=== PATIENT | female | born 1980 | race Caucasian/White ===

== ENCOUNTER → 2020-01-17 14:55 | Outpatient (BNVA) | payer MEDICAID, SELFPAY | PROVIDERS: PCP Nurse Practitioner Family; Visit Provider Psychiatry & Neurology Neurology | DX: G56.03 Carpal tunnel syndrome, bilateral upper limbs (principal); G56.22 Lesion of ulnar nerve, left upper limb ==

== ENCOUNTER 2022-02-02 13:27 | Inpatient (IN) | payer MEDICAID, SELFPAY ==
[2022-02-02] VITALS (25 sets, daily range): BP systolic 93–155; BP diastolic 63–96; PULSE 68–88; RESP 13–22; TEMP 36.6–37.7; O2SAT 88–96; BMI 25.0
--- NOTE | 2022-02-02 13:47 | XRR_ITS ---
PROCEDURE INFORMATION: Exam: XR Chest Exam date and time: 02/02/2022 1:47 PM Age: 41 years old Clinical indication: Other: Weakness TECHNIQUE: Imaging protocol: XR of the chest. Views: 1 view. COMPARISON: No relevant prior studies available. FINDINGS: Lungs: Unremarkable. No consolidation. Pleural spaces: Unremarkable. No pleural effusion. No pneumothorax. Heart/Mediastinum: Unremarkable. No cardiomegaly. Diaphragm: Mild elevation of the right hemidiaphragm. Bones/joints: Unremarkable. XR/XR chest 1V portable [id number] IMPRESSION: No acute findings.
--- NOTE | 2022-02-02 13:47 | CTR_ITS ---
PROCEDURE INFORMATION: Exam: CT Head Without Contrast Exam date and time: 02/02/2022 1:47 PM Age: 41 years old Clinical indication: Weakness, extremity; Bilateral TECHNIQUE: Imaging protocol: Computed tomography of the head without contrast. Radiation optimization: All CT scans at this facility use at least one of these dose optimization techniques: automated exposure control; mA and/or kV adjustment per patient size (includes targeted exams where dose is matched to clinical indication); or iterative reconstruction. COMPARISON: No relevant prior studies available. RADIATION DOSE METRICS: Total DLP (mGy-cm): 891.2 FINDINGS: Brain: No hemorrhage. No edema. No significant white matter disease. No mass effect. Cerebral ventricles: No ventriculomegaly. Paranasal sinuses: Visualized sinuses are unremarkable. No fluid levels. Mastoid air cells: Visualized mastoid air cells are well aerated. Bones/joints: Unremarkable. No acute fracture. Soft tissues: Unremarkable. CT/CT head wo con* [id number] IMPRESSION: No acute intracranial abnormality.
--- NOTE | 2022-02-02 13:48 | ECG_ITS ---
[facility] Test Date: 2022-02-02 Pat Name: Jazmine Cancino Department: Room: [facility] Gender: Female Cover Operator: : 1980 Requested By: Jaylan Villagran Order Number: [id number] Leatha MD: Ebony Muñiz M.D. Measurements Intervals [place] Rate: P: AK: QRS: QRSD: T: QT: QTc: Interpretive Statements Sinus rhythm Normal axis WARNING: DATA QUALITY MAY AFFECT INTERPRETATION No previous ECG available for comparison Electronically Signed On 02-03-2022 16:12:02 LICENSING OFFICER by Ebony Muñiz M.D. [email or web address]
--- NOTE | 2022-02-02 13:56 | W.ED.WEAKNES ---
HPI - Weakness General: Chief complaint: Weakness Stated complaint: RODRIGUEZ ARM AND LEG WEAKNESS Time Seen by Provider: 02/02/22 13:39 Source: patient and EMS Mode of arrival: EMS Limitations: no limitations History of Present Illness: 41-year-old female states that over the last day to 2 days she has had extreme weakness she states that she is not able to walk she is not able to use her arms or legs. She states that she has not felt well she had some neck pain 2 days ago states that the severe weakness started overnight. She has no pain anywhere denies any fever denies any history of this in the past. Associated symptoms: Denies chest pain, chills, dysuria, easy bruising, fever(s), nausea or vomiting Review of Systems Const: Denies: fever(s), chills, body aches or change in appetite Eyes: Denies: blurry vision or eye discomfort ENMT: Denies: throat pain or dental pain Card: Denies: chest pain Resp: Denies: dyspnea GI: Denies: abdominal pain, nausea, vomiting or diarrhea : Denies: dysuria Musc: Denies: neck pain or back pain Skin/Breast: Denies: rash Neuro: Reports: weakness in extremities Psych: Denies: depression Teo/Lymph: Denies: easy bruising All/Imm: Denies: urticaria PFSH ED PFSH: Family History Denies family history of Cancer Social History Smoking and tobacco status: current every day smoker Physical Exam Const: COMMON NORMALS: patient oriented x3 HENMT: COMMON NORMALS: normocephalic and atraumatic HEAD & SCALP: normocephalic and atraumatic Eye: COMMON NORMALS: Equal, round and reactive pupils present and EOMs intact bilaterally PUPIL: Yes Equal, round and reactive pupils present Neck/C-Spine: COMMON NORMALS: full ROM and supple Chest: COMMONS NORMALS: normal inspection of the chest and normal palpation of entire chest wall Resp: COMMON NORMALS: normal respiratory effort, No retractions, No use of accessory muscles and clear to auscultation bilaterally AUSCULTATION: clear to auscultation bilaterally Cardio: COMMON NORMALS: regular rate, regular rhythm and No murmurs present (Cardio) RATE: regular rate RHYTHM: regular rhythm GI: COMMON NORMALS: Normal to inspection, nondistended, normoactive bowel sounds present, Soft to palpation, non-tender and no masses PALPATION: Yes Soft to palpation Extremity: COMMON NORMALS: normal to inspection and full ROM Neuro: COMMON NORMALS: patient oriented x3 SPEECH: speech normal GAIT: No Normal gait present SENSORY EXAM: Yes other (Pinprick and touch sensation intact to all 4 extremities) MOTOR EXAM: Other motor observations present (Extreme weakness to the bilateral lower extremities not able to move them a) DEEP TENDON REFLEXES: Right patellar reflex intensity grade: 0, Left patellar reflex intensity grade: 1+, Right ankle reflex intensity grade: 0 and Left ankle reflex intensity grade: 0 Psych: COMMON NORMALS: mental status grossly normal, Normal thought process present and cooperative THOUGHT PROCESS: Normal thought process present OTHER: Weakness in all 4 extremities Skin: COMMON NORMALS: no rashes or lesions noted and no wounds GENERAL SKIN EXAM: no rashes or lesions noted Course Vital Signs: Vital signs: Vital Signs Temperature 99.8 F H 02/02/22 15:00 Pulse Rate 85 02/02/22 16:00 Respiratory Rate 18 02/02/22 16:00 Blood Pressure 155/89 02/02/22 16:00 Pulse Oximetry 91 02/02/22 16:00 MDM - Weakness Medical Decision Making Patient presents with progressive weakness of her lower and upper extremities. Patient's head CT here is normal she has no low back pain she does have some neck pain I did speak to the neurologist I am concerned about Guillain-Galarza? especially with her decreased reflexes neurologist agrees as well we will get MRI of C-spine T-spine and brain at this time we will start her on IVIG I spoke to hospitalist will admit to the ICU neurology Dr. Juarez is also consulted at this time. Lab Data : 02/02/22 14:00 02/02/22 14:00 Radiology Impressions Chest X-Ray 02/02/22 13:47 IMPRESSION: No acute findings. Head CT 02/02/22 13:47 IMPRESSION: No acute intracranial abnormality. Laboratory Results WBC 16.9 10^3/uL (4.0-10.0) H 02/02/22 14:00 RBC 4.78 10^6/uL (4.1-5.3) 02/02/22 14:00 Hgb 13.3 g/dL (11.5-15.3) 02/02/22 14:00 Hct 40.8 % (37.0-47.0) 02/02/22 14:00 MCV 85.4 fl (81-99) 02/02/22 14:00 MCH 27.8 pg (28.0-34.0) L 02/02/22 14:00 MCHC 32.6 g/dL (30.0-36.0) 02/02/22 14:00 RDW 14.5 % (12.1-15.1) 02/02/22 14:00 Plt Count 309 10^3/cmm (130-400) 02/02/22 14:00 MPV 8.9 fL (7.4-10.4) 02/02/22 14:00 Neut % (Auto) 81.1 % 02/02/22 14:00 Lymph % (Auto) 9.6 % 02/02/22 14:00 Rankin % (Auto) 8.6 % 02/02/22 14:00 Eos % (Auto) 0.0 % 02/02/22 14:00 Baso % (Auto) 0.2 % 02/02/22 14:00 Neut # (Auto) 13.69 10^3/uL (1.8-7.7) H 02/02/22 14:00 Lymph # (Auto) 1.6 10^3/uL (0.8-4.8) 02/02/22 14:00 Rankin # (Auto) 1.5 10^3/uL (0.2-0.9) H 02/02/22 14:00 Eos # (Auto) 0.0 10^3/uL (0.0-0.8) 02/02/22 14:00 Baso # (Auto) 0.0 10^3/uL (0.0-0.1) 02/02/22 14:00 Nucleated RBC % (auto) 0 % 02/02/22 14:00 Nucleated RBCs # 0.0 /100WBC 02/02/22 14:00 Sodium 134 mmol/L (136-145) L 02/02/22 14:00 Potassium 4.3 mmol/L (3.5-5.1) 02/02/22 14:00 Chloride 93 mmol/L (98-107) L 02/02/22 14:00 Carbon Dioxide 28 mmol/L (22-29) 02/02/22 14:00 Anion Gap 17.3 (5-19) 02/02/22 14:00 BUN 8 mg/dL (6-20) 02/02/22 14:00 Creatinine 0.4 mg/dL (0.5-0.9) L 02/02/22 14:00 GFR Calculation 175.9 mL/min (90-130) H 02/02/22 14:00 Glucose 132 mg/dL (65-115) H 02/02/22 14:00 Calculated Osmolality 278 mOsm/kg (285-295) L 02/02/22 14:00 Calcium 8.9 mg/dL (8.5-10.5) 02/02/22 14:00 Total Bilirubin 0.5 mg/dL (0.15-1.2) 02/02/22 14:00 AST 12 U/L (0-32) 02/02/22 14:00 ALT 11 U/L (0-33) 02/02/22 14:00 Alkaline Phosphatase 107 IU/L (35-105) H 02/02/22 14:00 Total Protein 8.1 g/dL (6.6-8.7) 02/02/22 14:00 Albumin 4.0 g/dL (3.5-5.2) 02/02/22 14:00 Globulin 4.1 g/dL (1.3-4.6) 02/02/22 14:00 TSH 0.61 uIU/mL (0.27-4.20) 02/02/22 14:00 HCG, Qual Negative (Negative) 02/02/22 14:00 Urine Color Yellow (Yellow) 02/02/22 14:10 Urine Appearance Clear (CLEAR) 02/02/22 14:10 Urine pH 7 (5-7) 02/02/22 14:10 Ur Specific Crowder 1.010 (1.005-1.030) 02/02/22 14:10 Urine Protein Neg (Negative) 02/02/22 14:10 Urine Glucose (UA) Norm (Normal) 02/02/22 14:10 Urine Ketones Negative (Negative) 02/02/22 14:10 Urine Blood Neg (Negative) 02/02/22 14:10 Urine Nitrate Negative (Negative) 02/02/22 14:10 Urine Bilirubin Neg (Negative) 02/02/22 14:10 Urine Urobilinogen 1 mg/dL (Negative) H 02/02/22 14:10 Ur Leukocyte Esterase Negative (Negative) 02/02/22 14:10 Urine Opiates Screen Positive ng/mL (Negative) H 02/02/22 14:10 Ur Barbiturates Screen Negative ng/mL (Negative) 02/02/22 14:10 Ur Phencyclidine Scrn Negative ng/mL (Negative) 02/02/22 14:10 Ur Amphetamines Screen Negative ng/mL (Negative) 02/02/22 14:10 U Benzodiazepines Scrn Negative ng/mL (Negative) 02/02/22 14:10 Urine Cocaine Screen Negative ng/mL (Negative) 02/02/22 14:10 U Marijuana (THC) Screen Positive ng/mL (Negative) H 02/02/22 14:10 Ethyl Alcohol < 10 mg/dL (0-10) 02/02/22 14:00 EKG Data EKG 1: I personally reviewed and interpreted this EKG as follows: EKG interpretation date: 02/02/22 EKG interpretation time: 14:02 Interpretation: nsr hr [address] or t wave abnormalities qrs 92 qtc 437 Critical Care Time Critical Care Time: Critical Care Time: Yes Total Critical Care Time: 35 Attestation: The high probability of a clinically significant, sudden or life threatening deterioration of the patient's Neuro system(s) required my full and direct attention, intervention and personal management. The critical care time is as shown. This time is in addition to time spent performing any reported procedures but includes the following: [x] Data and vital sign review and interpretation [x] Patient assessment, examination and intervention [x] Documentation [x] Medication orders and management Discharge Plan Discharge Patient Disposition: Admitted As Inpatient Admit Provider: Parrish Sparrow Clinical Impression: Weakness of both arms, Weakness of both legs Condition: Stable Coding Level of Care Code ED Business Development Representative for Chg Fwd Exam Comprehensive
[2022-02-02 14:09] LABS: Basophils % 0.2 %; Hematocrit 40.8 % (37.0-47.0); Hemoglobin 13.3 g/dL (11.5-15.3); Lymphocytes # 1.6 10^3/uL (0.8-4.8); Lymphocytes % 9.6 %; Mean Corpuscular HGB Conc 32.6 g/dL (30.0-36.0); Mean Corpuscular Hemoglobin 27.8 pg (28.0-34.0); Mean Corpuscular Volume 85.4 fl (81-99); Mean Platelet Volume 8.9 fL (7.4-10.4); Monocytes # 1.5 10^3/uL (0.2-0.9); Monocytes % 8.6 %; Neutrophils # 13.69 10^3/uL (1.8-7.7); Neutrophils % 81.1 %; Nucleated Red Blood Cells % 0 %; Platelet Count 309 10^3/cmm (130-400); Red Blood Count 4.78 10^6/uL (4.1-5.3); Red Cell Distribution Width 14.5 % (12.1-15.1); White Blood Count 16.9 10^3/uL (4.0-10.0)
--- NOTE | 2022-02-02 14:23 | PC.NURSE ---
Unable to use bedpan, straight cath for urine obtained
[2022-02-02 14:27] LABS: Add Urine Microscopic? NO; Charge for UA Resulting for Rev
[2022-02-02 14:33] LABS: Bilirubin Urine Neg (Negative); Blood Urine Neg (Negative); Glucose Urine UA Norm (Normal); Ketones Urine Negative (Negative); Leukocyte Esterase Urine Negative (Negative); Nitrate Urine Negative (Negative); Protein Urine Neg (Negative); Urine Appearance Clear (CLEAR); Urine Color Yellow (Yellow); Urobilinogen Urine 1 mg/dL (Negative); pH Urine 7 (5-7)
[2022-02-02 14:36] LABS: HCG, Serum Qual Negative (Negative)
[2022-02-02 14:39] LABS: Amphetamines Screen Urine Negative (Negative); Barbiturates Screen Urine Negative (Negative); Benzodiazepines Screen Urine Negative (Negative); Cocaine Screen Urine Negative (Negative); Opiate Screen Urine Positive (Negative); PCP Screen Urine Negative (Negative); THC Screen Urine Positive (Negative)
[2022-02-02 14:39] LABS: Alanine Aminotransferase 11 U/L (0-33); Alkaline Phosphatase 107 IU/L (35-105); Anion Gap 17.3 (5-19); Aspartate Amino Transferase 12 U/L (0-32); Blood Urea Nitrogen 8 mg/dL (6-20); Calcium 8.9 mg/dL (8.5-10.5); Carbon Dioxide 28 mmol/L (22-29); Chloride 93 mmol/L (98-107); Globulin 4.1 g/dL (1.3-4.6); Glomerular Filtration Rate 175.9 mL/min (90-130); Glucose 132 mg/dL (65-115); Osmolality Calculated 278 mOsm/kg (285-295); Potassium 4.3 mmol/L (3.5-5.1); Sodium 134 mmol/L (136-145); Thyroid Stimulating Hormone 0.61 uIU/mL (0.27-4.20); Total Bilirubin 0.5 mg/dL (0.15-1.2); Total Protein 8.1 g/dL (6.6-8.7)
[2022-02-02 14:51] LABS: Alcohol Level < 10 mg/dL (0-10)
--- NOTE | 2022-02-02 15:27 | MRR_ITS ---
PROCEDURE INFORMATION: Exam: MR Thoracic Spine Without Contrast Exam date and time: 02/02/2022 3:27 PM Age: 41 years old Clinical indication: Pain in thoracic spine TECHNIQUE: Imaging protocol: Multiplanar magnetic resonance images of the thoracic spine without contrast. COMPARISON: MR cervical spin wo con* [id number] 02/02/2022 5:18 PM FINDINGS: Vertebrae: Vertebral body heights are intact. Normal marrow signal. No irregular osseous erosions. Suspected 8 mm vertebral hemangioma in the T6 vertebral body. Spinal cord: Cervical cord syrinx noted on concurrent MRI extends to the level of the T4 vertebral body. Minimal central cord fluid/syrinx also seen more caudally within the thoracolumbar cord. Discs/Spinal canal/Neural foramina: No significant disc disease. No significant spinal canal stenosis. Soft tissues: Unremarkable. MR/MR thoracic spin wo con* [id number] IMPRESSION: Cervical cord syrinx noted on concurrent MRI extends into the thoracic cord to the level of T4. Minimal central cord fluid/syrinx seen more caudally within the visualized thoracolumbar cord. No signs of discitis/osteomyelitis, severe spinal stenosis, or cord impingement in the thoracic spine.
--- NOTE | 2022-02-02 15:27 | MRR_ITS ---
PROCEDURE INFORMATION: Exam: MR Cervical Spine Without Contrast Exam date and time: 02/02/2022 3:27 PM Age: 41 years old Clinical indication: Neck pain TECHNIQUE: Imaging protocol: Multiplanar magnetic resonance images of the cervical spine without contrast. COMPARISON: MR head wo con* [id number] 02/02/2022 5:04 PM FINDINGS: Vertebrae: Vertebral body heights are intact. Normal marrow signal is preserved. No irregular osseous erosions. Spinal cord: There is a long segment of syrinx within the cervical cord proximal to the area of cord impingement at C5-C6 measuring 4.5 cm in length. The syrinx also extends caudal to the area of cord impression at least to the level of T2-T3 measuring 6.7 cm in length. Discs/Spinal canal/Neural foramina: Abnormal increased T2 signal within the C5-C6 disc. There is adjacent lobulated epidural thickening seen extending throughout the cervical spine. There is also severe narrowing of the spinal canal posterior to C5-C6 with impression on the cervical cord. Vasculature: Expected flow voids in the vertebral arteries. Soft tissues: Unremarkable MR/MR cervical spin wo con* [id number] IMPRESSION: 1. Findings suspicious for discitis at C5-C6 with localized extension/lobulated thickening of the anterior epidural space throughout the cervical spine suspicious for epidural abscess. 2. There is severe spinal stenosis and impingement the cervical cord at the level of C5-C6 with a long segment of syrinx proximal to the impingement as well as caudally extending to the level of T2-T3.
--- NOTE | 2022-02-02 15:37 | MRR_ITS ---
PROCEDURE INFORMATION: Exam: MR Head Without Contrast Exam date and time: 02/02/2022 3:37 PM Age: 41 years old Clinical indication: Weakness, extremity TECHNIQUE: Imaging protocol: MR of the head without contrast. COMPARISON: CT head wo con* [id number] 02/02/2022 2:22 PM FINDINGS: Brain: Normal. No acute infarct. No hemorrhage. No significant white matter disease. No edema. Cerebral ventricles: Normal. No ventriculomegaly. Bones/joints: Unremarkable. Paranasal sinuses: Normal as visualized. No acute sinusitis. Mastoid air cells: Normal as visualized. No mastoid effusion. Orbital cavity: Unremarkable. Soft tissues: Unremarkable. MR/MR head wo con* [id number] IMPRESSION: No acute findings.
[2022-02-02] MEDS: acetaminophen 500 mg Tablet 1000 MG PO (15:48)
--- NOTE | 2022-02-02 16:22 | PC.NURSE ---
MRI checklist completed w pt.
--- NOTE | 2022-02-02 17:21 | PM.HP ---
Providers/Chief Complaint Admitting Physician: Parrish Sparrow MD Primary Care Provider: Devika Garcia [employer] Chief Complaint: RODIRGUEZ ARM AND LEG WEAKNESS History of Present Illness Jazmine Cancino is a 41 year old female with no significant PMH came in with c/o acute onset of B/L upper and lower extremity weakness,today, she was at [facility] on Thursday with c/o neck pain at that it was diagnosed as neck spasm and she was discharged on cyclobenzaprine since last night her neck stiffness started getting worse and today morning she was not able to walk and had also developed significant weakness in both her upper extremity, she experinced a fall today at home and was laying on the ground for long time , she hit her forehead, daughter came home and then called the EMS.When I saw the patient she denied any fever,cough,nausea,vomiting, abdominal pain,she refused any current I.V Drug use. Upon arrival in the ER she was worked up for above mention complain: Pertinent Imaging studies : C.T Head without contrast :No acute intracranial pathology MR head wo con: No acute findings. MR cervical spin wo con: Findings suspicious for discitis at C5-C6 with localized extension/lobulated thickening of the anterior epidural space throughout the cervical spine suspicious for epidural abscess. There is severe spinal stenosis and impingement the cervical cord at the level of C5-C6 with a long segment of syrinx proximal to the impingement as well as caudally extending to the level of T2-T3. MR thoracic spin wo con: Cervical cord syrinx noted on concurrent MRI extends into the thoracic cord to the level of T4. Minimal central cord fluid/syrinx seen more caudally within the visualized thoracolumbar cord. No signs of discitis/osteomyelitis, severe spinal stenosis, or cord impingement in the thoracic spine. Pertinent Labs : WBC : 16.9 , H&H : 13.3/40.8 PLT : 309 , Na : 134 , k: 4.3 , BUN/SCR : 8/0.4 , Patient was started on van and Zosyn as well as on steroids in ER. Neurology as well as ortho was consulted. Review of Systems General: Reports: 10 or more systems reviewed and unremarkable except in HPI and below Const: Denies: fever(s), chills, body aches, change in appetite or diaphoresis Card: Denies: palpitations, edema, swelling of feet/ankles, dyspnea on exertion, orthopnea or leg pain with exertion Resp: Denies: dyspnea, productive cough, wheezing or pain on inspiration GI: Denies: abdominal pain, nausea, vomiting, diarrhea or constipation : Denies: flank pain Musc: Denies: back pain, extremity pain or extremity swelling Neuro: Denies: headache(s), difficulty walking or confusion Medications/Allergies Home Medications Medication Instructions Recorded Confirmed Last Taken Type aspirin 81 mg tablet,delayed 81 mg PO DAILY 02/02/22 02/02/22 02/01/22 History release atenolol 50 mg tablet 50 mg PO DAILY PRN 02/02/22 02/02/22 Unknown History buprenorphine 8 mg-naloxone 2 mg 1 film SUBLINGUAL TID 02/02/22 02/02/22 02/01/22 History sublingual film (Suboxone) cyclobenzaprine 10 mg tablet 10 mg PO TID PRN 02/02/22 02/02/22 Unknown History gabapentin 300 mg capsule 300 mg PO TID 02/02/22 02/02/22 02/01/22 History ibuprofen 600 mg tablet 600 mg PO QID PRN 02/02/22 02/02/22 Unknown History naloxone 4 mg/actuation nasal See Rx Instructions .ROUTE 02/02/22 02/02/22 Unknown History spray (Narcan) .COMPLEX PRN quetiapine 200 mg tablet 200 mg PO BEDTIME 02/02/22 02/02/22 02/01/22 History Allergies Allergy/AdvReac Type Severity Reaction Status Date / Time Sulfa (Sulfonamide Allergy Unknown Verified 01/17/20 15:16 Antibiotics) PFSH Acute PFSH: Family History Denies family history of Cancer Social History Smoking and tobacco status: current every day smoker Vitals/I&O/Wt Last Vital Signs Temp 99.8 F H 02/02/22 15:00 Pulse 85 02/02/22 16:00 Resp 18 02/02/22 16:00 BP 155/89 02/02/22 16:00 Pulse Ox 91 02/02/22 16:00 Weight last 48 hrs Weight 72.575 kg Physical Exam Const: COMMON NORMALS: patient oriented x3 HENMT: COMMON NORMALS: normocephalic and atraumatic HEAD & SCALP: normocephalic and atraumatic EXTERNAL EAR: Yes external ears normal Eye: GENERAL EYE: appearance normal, both eyes and all related structures Chest: COMMONS NORMALS: normal inspection of the chest and normal palpation of entire chest wall CHEST: Yes Symmetrical chest wall rise Resp: COMMON NORMALS: normal respiratory effort, No retractions, No use of accessory muscles and clear to auscultation bilaterally EFFORT & INSPECTION: Yes symmetric chest movement AUSCULTATION: clear to auscultation bilaterally Cardio: COMMON NORMALS: regular rate, regular rhythm, S1 normal heart sound present, S2 normal heart sound present, No gallops present (Cardio), No murmurs present (Cardio), No rub (Cardio) and Peripheral pulses 2+ throughout RATE: regular rate RHYTHM: regular rhythm HEART SOUNDS: S1 normal heart sound present and S2 normal heart sound present PERIPHERAL PULSES: Peripheral pulses 2+ throughout GI: COMMON NORMALS: Normal to inspection, nondistended, normoactive bowel sounds present, Soft to palpation, non-tender, No hepatosplenomegaly present and no masses AUSCULTATION: Yes normoactive bowel sounds PALPATION: Yes Soft to palpation and Yes No hepatosplenomegaly present RECTAL EXAM: deferred Extremity: COMMON NORMALS: no clubbing, cyanosis or edema and no pedal edema Neuro: COMMON NORMALS: patient oriented x3 Data : 02/02/22 14:00 02/02/22 14:00 A&P Assessment and plan (1) Abscess in epidural space of cervical spine: Status: Acute (2) Spinal stenosis in cervical region: Status: Acute (3) Quadriplegia: Status: Acute Plan 41 year old female with no significant PMH came in with c/o acute onset of B/L upper and lower extremity weakness,today, she was at [facility] on Thursday with c/o neck pain at that it was diagnosed as neck spasm and she was discharged on cyclobenzaprine since last night her neck stiffness started getting worse and today morning she was not able to walk and had also developed significant weakness in both her upper extremity, she experinced a fall today at home and was laying on the ground for long time , she hit her forehead, daughter came home and then called the EMS.When I saw the patient she denied any fever,cough,nausea,vomiting, abdominal pain,she refused any current I.V Drug use. Assessment : #Epidural Abscess cervical spine: Follow Blood culture Urine Culture Continue vancomycin and Zosyn Ortho and neurology on Board #Discitis at C5-C6: Follow ESR Follow CRP detention I.V abxs likely 6-8 weeks . #Quadriperesis # Code Status :Full code #DVT PPX: On LOVENOX Attestations Medical Necessity Statement*: Patient needs to be in hospital for the management of epidural abscess. Anticipated LOS Greater then 2 midnights. Time Spent in Patient Care: Greater than 35 minutes (>than 50% of time spent in counselling and/or direct pt care on unit). Patient is in hospital for management of acute onset of bilateral upper and lower extremity weakness. Anticipated length of stay greater than 2 midnights. Coding Level of Care Code Acute Kier Boiler for Conrad Fwruth Exam Comprehensive Diagnoses Abscess in epidural space of cervical spine G06.1 Spinal stenosis in cervical region M48.02 Quadriplegia G82.50
--- NOTE | 2022-02-02 18:32 | PC.NURSE ---
Back from MRI, lea procedure well.
[2022-02-02] MEDS: enoxaparin 40 mg/0.4 mL Syringe SUBCUT (18:52)
--- NOTE | 2022-02-02 19:15 | PC.PHAR ---
Vancomycin is dosed at 1gm IVPB every 8 hours to produce a predicted trough level of 14.29 (population based pharmacokinetic analysis). A trough level has been ordered from the lab to be obtained before the fourth dose to confirm and adjust if needed.
--- NOTE | 2022-02-02 19:20 | P.CONIM_ITS ---
Providers/Reason For Consult Consulting Physician/Specialty*: dr. Jaylan Villagran Reason for Consult*: quadreparesis Attending Physician: Parrish Sparrow MD Primary Care Provider: Devika Garcia-Brittney History of Present Illness History of Present Illness Jazmine Cancino is a 41 year old woman with subacute onset weakness in all 4 extremities. 4 days ago she was having severe spasms in her neck and went to her local emergency department for evaluation. She noticed that yesterday the spasms were getting worse and when she would put her feet down, she experienced an electric shock from her feet all the way to the back of her head. She was walking fine last night and had no weakness in her arms. This morning she sat up and discovered that she could not walk. She fell forward, struck the left side of her forehead and she was on the floor from 730 this morning until noon when her daughter came home. Dr. Villagran called me about the patient, could not find a sensory level and could not find any reflexes in her lower extremities so we were concerned about ascending paralysis versus a cervical spinal cord lesion. I asked him to do an MRI of the cervical spine and I came in this afternoon just as that was completed. She has an epidural abscess at 5 6. There is spinal cord edema above the level of the lesion. She has not had any source of infection. She denies any past history of spinal cord or spinal injury. She is a smoker and otherwise in excellent health. She has chronic neck pain. Right now she is having burning dysesthesias at C7. Review of Systems General: Reports: 10 or more systems reviewed and unremarkable except in HPI and below Const: Reports: malaise; Denies: fever(s) or chills Eyes: Denies: change in vision ENMT: Denies: oral sores or dental pain (It looks like she may have some dental problems) Card: Denies: chest pain, palpitations or dyspnea on exertion Resp: Reports: dyspnea GI: Denies: abdominal pain, nausea or vomiting : Reports: difficulty voiding (She was not able to empty her bladder since last night) Skin/Breast: Reports: skin pain (C7); Denies: rash Neuro: Reports: headache(s), numbness in extremities, weakness in extremities, sensory changes and difficulty walking Psych: Denies: anxiety or depression Endo: Reports: flushing Teo/Lymph: Reports: easy bruising All/Imm: Denies: urticaria Medications/Allergies Home Medications Medication Instructions Recorded Confirmed Last Taken Type aspirin 81 mg tablet,delayed 81 mg PO DAILY 02/02/22 02/02/22 02/01/22 History release atenolol 50 mg tablet 50 mg PO DAILY PRN 02/02/22 02/02/22 Unknown History buprenorphine 8 mg-naloxone 2 mg 1 film SUBLINGUAL TID 02/02/22 02/02/22 02/01/22 History sublingual film (Suboxone) cyclobenzaprine 10 mg tablet 10 mg PO TID PRN 02/02/22 02/02/22 Unknown History gabapentin 300 mg capsule 300 mg PO TID 02/02/22 02/02/22 02/01/22 History ibuprofen 600 mg tablet 600 mg PO QID PRN 02/02/22 02/02/22 Unknown History naloxone 4 mg/actuation nasal See Rx Instructions .ROUTE 02/02/22 02/02/22 Unknown History spray (Narcan) .COMPLEX PRN quetiapine 200 mg tablet 200 mg PO BEDTIME 02/02/22 02/02/22 02/01/22 History Allergies Allergy/AdvReac Type Severity Reaction Status Date / Time Sulfa (Sulfonamide Allergy Unknown Verified 01/17/20 15:16 Antibiotics) Current Medications Generic Name Dose Route Start Last Admin Trade Name Freq PRN Reason Stop Dose Admin Enoxaparin Sodium 40 mg 02/02/22 17:30 02/02/22 18:52 Enoxaparin 40 Mg/0.4 Ml Syringe SUBCUT 40 mg Q24H DORA Administration PFSH Acute PFSH: Family History Denies family history of Cancer Social History Smoking and tobacco status: current every day smoker Vitals/I&O/Wt Last Vital Signs Temp 98.1 F 02/02/22 18:55 Pulse 79 02/02/22 18:55 Resp 20 H 02/02/22 18:55 BP 140/75 02/02/22 18:55 Pulse Ox 92 02/02/22 18:55 Weight last 48 hrs Weight 160 lb Physical Exam Narrative: GENERAL: The patient was [well-nourished] supine on the stretcher unable to move. MENTAL STATUS: [Orientation was full to 10 of 10 questions of orientation]. [Speech was fluent without word hesitation]. [No difficulty following a complex command]. [The affect was euthymic]. CRANIAL NERVES: Visual acuity was intact to reading small print. Visual epps were full to confrontation, direct and consensual. Extraocular movements were full without nystagmus. Both slow pursuit and saccadic eye movements were normal. PERRLA. Face was symmetric at rest and with grimace. [Facial sensation was intact in all three distributions of the fifth cranial nerve bilaterally to touch]. Hearing was intact to soft spoken voice. Tongue and palate were midline at rest and with protrusion of the tongue and elevation of the palate. Shoulders were symmetric at rest and with shoulder shrug. MOTOR: She has weak deltoids and biceps but at least antigravity strength. Triceps flaccid. I could not get any effort in her legs. SENSATION: She has a sensory level to pin at C7 DEEP TENDON REFLEXES: Areflexic. Right toe upgoing. GAIT: Unable HEENT: She looks a little flushed NECK: Carotid upstroke was strong bilaterally without bruits. CHEST: Scattered rhonchi. CARDIOVASCULAR: The heart sounds were normal without murmur or gallop. Regular rate and rhythm. Peripheral pulses were 2+ throughout in the distal extremities. EXTREMITIES: There was no edema or cyanosis. The skin was unremarkable. The spin e exhibited normal thoracic kyphosis and normal lumbar lordosis without deformities. Data : 02/02/22 14:00 02/02/22 14:00 A&P Assessment and plan (1) Abscess in epidural space of cervical spine: This is a healthy 41-year-old woman except she smokes. She has chronic neck pain that escalated 4 days ago and she developed severe spasms in her neck. By yesterday she was experiencing Lhermitte's phenomenon. She was still walking last night but by this morning she fell when she attempted to get up, struck her left forehead and laid on the floor after that and has not been able to move her arms or legs. She has a sensory level at C6 consistent with her epidural abscess. It looks like she has infectious discitis at that level. The source of her infection is not clear as she has not had any kind of surgery or ill nesses lately. I spoke with Dr. Gregorio Villagran. I came in just as the patient returned from MRI and reviewed her images. I reviewed the results with the patient. I have called her daughter to apprise her of these events. I talked with Dr. Aj Mathew who plans to take her to surgery first thing tomorrow. High-dose Decadron given IV and plan on 4 mg IV every 6 and antibiotics ordered by Dr. Sparrow, with whom I also spoke. Patient will be admitted to ICU. Status: Acute (2) Spinal stenosis in cervical region: Status: Acute (3) Quadriplegia: Status: Acute Consult Attestations Medical Necessity Statement: Patient acutely quadriplegic with epidural cervical abscess Time Spent in Patient Care: 90 minutes Critical Care Time: 30 min Coding Level of Care Code Acute Order Entry Clerk for [facility] Vijaya Diagnoses Abscess in epidural space of cervical spine G06.1 Spinal stenosis in cervical region M48.02 Quadriplegia G82.50
[2022-02-02] MEDS: piperacillin-tazobactam 3.375 GM in sodium chloride 0.9% (plus) 50 ML IV (19:31)
[2022-02-02] MEDS: dexamethasone 10 mg/mL INJ IVP (19:31)
[2022-02-02] MEDS: vancomycin 1,250 MG/250 ML PIGGYBACK 250 MG IV (19:42)
[2022-02-02] MEDS: vancomycin 1,000 MG in sodium chloride 0.9% 250 ML 250 MG IV (20:00)
[2022-02-02] MEDS: HYDROmorphone 1 mg/mL INJ 1 mL IVP (20:20)
[2022-02-02] MEDS: ondansetron 2 mg/ML SDV 2 mL 4 MG IVP (20:42)
[2022-02-02] MEDS: quetiapine 100 mg Tablet 200 MG PO (20:45)
--- NOTE | 2022-02-02 20:58 | PC.RESP ---
nif better then -60
[2022-02-02] MEDS: dexamethasone 4 mg/mL INJ IVP (21:31)
[2022-02-02] MEDS: oxyCODONE-APAP 5-325 mg Tablet 1 TAB PO (21:38)
[2022-02-02] MEDS: sodium chloride 0.9% 1,000 ML 100 ML IV (21:39)
--- NOTE | 2022-02-02 23:13 | PC.NURSE ---
Patient arrived from ER around 2029. Patient alert and oriented x4. Pulses palpable and present, NSR. Clear breath sounds. Patient placed on 3LNC around 2129. No complaints of nausea or vomiting and no complaints of chest pain. Patient complains of pain whenever she moves her head or takes sips, pain is located in her posterior head, down to her neck and shoulders. The pain in her head wraps around anteriorly with movement but subsides. Not sharp, but more of a throbbing and intense pain stated per patient and subsides within a few seconds. Resting, she has more minimal pain in her posterior head, neck, and shoulders. Pupils equal and reactive at a 3. Numbness in bilateral lower extremities, unable to move toes or legs. Sensation in BLE is present and feels like a light touch stated per patient. Bilateral upper extremities have some difference in sensation. Left upper extremity sensation per patient feels like pressure and more dull . Right upper extremity feels more tingling . Both upper extremities feel numb. She is able to move both upper extremities, but it appears intermittently spastic and she is only able to move her arms to her chest area. Unable to grappler with her hands. Gave the patient percocet to help with pain, she is resting quietly. Will have patient npo at midnight for planned neck clean out tomorrow morning per Dr. Sparrow.
[2022-02-03] VITALS (46 sets, daily range): BP systolic 109–150; BP diastolic 60–86; PULSE 0–95; RESP 12–32; TEMP 36.6–37.8; O2SAT 89–98
--- NOTE | 2022-02-03 | SCC_ITS ---
Procedure done: 1. Anterior diskectomy C5/6 2. Insertion of cage C5/6 3. Instrumentation with anterior plate from C5-C6 4. Anterior discectomy C2/3 5. Insertion of cage C2/3 6. Indtrumentation with anterior plate C2/3 7. Use of allograft 31.3 seconds of fluoroscopic guidance, for a cumulative dose of 7.38 mGy, was provided to Dr. Mathew by the radiology department. C-arm images of the cervical spine were saved for the patient's permanent record. POOJA
--- NOTE | 2022-02-03 | XR_ITS ---
WS: [id number] C-ARM RADIOGRAPHS CERVICAL SPINE; 4 IMAGES HISTORY: Blaine arm and leg weakness. COMPARISON: None available. Patient is intubated. Interbody spacers and anterior screw fixation at C2-3 and C5-6. There is no inf erior screw in the vertebral body at the C2-3 level. XR/XR cervical spine 3V* [id number] IMPRESSION: Intraoperative imaging during anterior cervical fusion at C2-3 and C5-6. Screw associated with the C3 vertebral body is not evident on the imaging submitted.
[2022-02-03] MEDS: morphine 4 mg/mL SDV 1 mL 2 MG IVP (01:27)
[2022-02-03] MEDS: dexamethasone 4 mg/mL INJ IVP ×4 (02:00→22:00)
[2022-02-03] MEDS: piperacillin-tazobactam 3.375 GM in sodium chloride 0.9% (plus) 50 ML IV ×2 (02:58→18:58)
[2022-02-03] MEDS: vancomycin 1,000 MG in sodium chloride 0.9% 250 ML 250 MG IV ×2 (03:08→17:32)
[2022-02-03 03:34] LABS: Basophils % 0.1 %; Hematocrit 33.5 % (37.0-47.0); Hemoglobin 10.8 g/dL (11.5-15.3); Lymphocytes # 1.1 10^3/uL (0.8-4.8); Lymphocytes % 9.2 %; Mean Corpuscular HGB Conc 32.2 g/dL (30.0-36.0); Mean Corpuscular Volume 83.8 fl (81-99); Mean Platelet Volume 9.1 fL (7.4-10.4); Monocytes # 0.4 10^3/uL (0.2-0.9); Monocytes % 3.5 %; Neutrophils # 10.61 10^3/uL (1.8-7.7); Neutrophils % 86.7 %; Nucleated Red Blood Cells % 0 %; Platelet Count 302 10^3/cmm (130-400); Red Cell Distribution Width 14.5 % (12.1-15.1); White Blood Count 12.2 10^3/uL (4.0-10.0)
[2022-02-03 03:40] LABS: Erythrocyte Sedimentation Rate 58 mm/hr (0-15)
[2022-02-03 03:53] LABS: Alanine Aminotransferase 6 U/L (0-33); Albumin Level 3.3 g/dL (3.5-5.2); Alkaline Phosphatase 89 IU/L (35-105); Anion Gap 15.8 (5-19); Aspartate Amino Transferase 6 U/L (0-32); Blood Urea Nitrogen 14 mg/dL (6-20); C Reactive Protein 276.9 mg/L (0.0-4.9); Calcium 8.2 mg/dL (8.5-10.5); Carbon Dioxide 25 mmol/L (22-29); Chloride 99 mmol/L (98-107); Globulin 3.5 g/dL (1.3-4.6); Glomerular Filtration Rate 175.9 mL/min (90-130); Glucose 144 mg/dL (65-115); Magnesium 2.5 mg/dL (1.7-2.3); Osmolality Calculated 285 mOsm/kg (285-295); Phosphorus 3.5 mg/dL (2.5-4.5); Potassium 3.8 mmol/L (3.5-5.1); Sodium 136 mmol/L (136-145); Total Bilirubin 0.3 mg/dL (0.15-1.2); Total Protein 6.8 g/dL (6.6-8.7)
[2022-02-03] MEDS: oxyCODONE-APAP 5-325 mg Tablet 1 TAB PO (05:15)
[2022-02-03] MEDS: sodium chloride 0.9% 1,000 ML 100 ML IV (07:21)
--- NOTE | 2022-02-03 07:57 | ANES.PREANE2 ---
Pre-Anesthetic Assessment Height/Weight: Height 1.7 m Weight 72.575 kg Temp Pulse Resp BP Pulse Ox 97.8 F 81 20 H 126/71 90 02/03/22 05:49 02/03/22 05:38 02/03/22 05:15 02/03/22 04:15 02/03/22 04:15 Operation Date: 02/03/22 09:30 Proposed Procedures p Corpectomy(Not Applicable) - Aj Mathew DO s Anterior Cervical Discectomy & Fusion(Not Applicable) - Aj Mathew DO Familial anesthetic complications: None Was Clonidine taken within 24 hours: N/A Last intake: Beta annie not taken in last 24 hours Last intake 02/02/2022 Social Tobacco and No tobacco Exam alert, oriented x 3, clear to auscultation bilaterally and regular rate & rhythm Airway Submandibular: within normal limits Cervical ROM: Other (Limited extension/flexion) Mallampati: Class II Dentition: loose (Lower molars) Pulmonary None reported CV/HEM Anemia None reported Hepatic None reported GI None reported Metabolic None reported Musc/skel None reported Neuropsych Neuropathy (1/5 strength in b/l LE and left upper extremity, 3/5 right finger/wrist strength, 1/5 upper right arm strength. 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 Minimal central cord fluid/syrinx seen more caudally within the visualized thoracolumbar cord. No signs of discitis/osteomyelitis, severe spinal stenosis, or cord impingement in the thoracic spine. ? Cervical Spine MRI 02/02/22 MR/MR cervical spin wo con* [id number] IMPRESSION: 1. Findings suspicious for discitis at C5-C6 with localized extension/lobulated thickening of the anterior epidural space throughout the cervical spine suspicious for epidural abscess. 2. There is severe spinal stenosis and impingement the cervical cord at the level of C5-C6 with a long segment of syrinx proximal to the impingement as well as caudally extending to the level of T2-T3. ? Anesthetic Plan ASA status: 3E (41 year old daily smoker w/ acute cervical cord infection w/ profound acute weakness in all 4 extremites ) Anesthesia: Anesthesia Evaluation and General Other: We discussed risk and benefits of general anesthesia including PONV, sore throat (sometimes severe), corneal abrasion, positioning and peripheral nerve injuries, life threatening allergic reaction, post operative ICU admission requiring prolonged intubation, stroke, heart attack, , and rare incidences of recall. Patient consents to proceed with general anesthesia. Patient unable to sign consent due to weakness, witness by bedside RN who signed consent form at patient's request. Risk of > 500 ml blood loss (7ml/kg in children): No Medications/Allergies Home Medications Medication Instructions Recorded Confirmed Last Taken Type aspirin 81 mg tablet,delayed 81 mg PO DAILY 02/02/22 02/02/22 02/01/22 History release atenolol 50 mg tablet 50 mg PO DAILY PRN 02/02/22 02/02/22 Unknown History buprenorphine 8 mg-naloxone 2 mg 1 film SUBLINGUAL TID 02/02/22 02/02/22 02/01/22 History sublingual film (Suboxone) cyclobenzaprine 10 mg tablet 10 mg PO TID PRN 02/02/22 02/02/22 Unknown History gabapentin 300 mg capsule 300 mg PO TID 02/02/22 02/02/22 02/01/22 History ibuprofen 600 mg tablet 600 mg PO QID PRN 02/02/22 02/02/22 Unknown History naloxone 4 mg/actuation nasal See Rx Instructions .ROUTE 02/02/22 02/02/22 Unknown History spray (Narcan) .COMPLEX PRN quetiapine 200 mg tablet 200 mg PO BEDTIME 02/02/22 02/02/22 02/01/22 History Allergies Allergy/AdvReac Type Severity Reaction Status Date / Time Sulfa (Sulfonamide Allergy Unknown Verified 01/17/20 15:16 Antibiotics) Current Medications Generic Name Dose Route Start Last Admin Trade Name Freq PRN Reason Stop Dose Admin Dexamethasone 4 mg 02/02/22 20:37 02/03/22 02:00 Dexamethasone 4 Mg/Ml Inj IVP 4 mg Q6H DORA Administration Enoxaparin Sodium 40 mg 02/02/22 17:30 02/02/22 18:52 Enoxaparin 40 Mg/0.4 Ml Syringe SUBCUT 40 mg Q24H DORA Administration Piperacillin Sod/Tazobactam 50 mls @ 12.5 mls/hr 02/02/22 19:00 02/03/22 02:58 Sod 3.375 gm/ Sodium Chloride IV 12.5 mls/hr Q8H DORA Administration Protocol Sodium Chloride 1,000 mls @ 100 mls/hr 02/02/22 21:30 02/03/22 07:21 Sodium Chloride 0.9% IV 100 mls/hr .Q10H DORA Administration Morphine Sulfate 2 mg 02/02/22 21:26 02/03/22 01:27 Morphine 4 Mg/Ml Sdv 1 Ml IVP 2 mg Q4H PRN Administration SEVERE PAIN Oxycodone/Acetaminophen 1 tab 02/02/22 21:26 02/03/22 05:15 Oxycodone-Apap 5-325 Mg Tablet PO 1 tab Q6H PRN Administration MODERATE PAIN Quetiapine Fumarate 200 mg 02/02/22 21:00 02/02/22 20:45 Quetiapine 100 Mg Tablet PO 200 mg BEDTIME DORA Administration PFSH Anesthesia Family History Denies family history of Cancer Social History Smoking and tobacco status: current every day smoker Female Reproductive History Date of last menstrual period: 09/30/21 Data Anesthesia : 02/03/22 03:02 02/03/22 03:02 Short CBC 02/02/22 02/03/22 Range/Units 14:00 03:02 WBC 16.9 H 12.2 H (4.0-10.0) 10^3/uL Hgb 13.3 10.8 L (11.5-15.3) g/dL Hct 40.8 33.5 L (37.0-47.0) % MCV 85.4 83.8 (81-99) fl Plt Count 309 302 (130-400) 10^3/cmm Neut % (Auto) 81.1 86.7 % Neut # (Auto) 13.69 H 10.61 H (1.8-7.7) 10^3/uL BMP 02/02/22 02/03/22 14:00 03:02 Sodium 134 L 136 Potassium 4.3 3.8 Chloride 93 L 99 Carbon Dioxide 28 25 BUN 8 14 Creatinine 0.4 L 0.4 L Glucose 132 H 144 H Calcium 8.9 8.2 L Liver Function 02/02/22 02/03/22 Range/Units 14:00 03:02 Total Bilirubin 0.5 0.3 (0.15-1.2) mg/dL AST 12 6 (0-32) U/L ALT 11 6 (0-33) U/L Alkaline Phosphatase 107 H 89 (35-105) IU/L Albumin 4.0 3.3 L (3.5-5.2) g/dL Urine 02/02/22 Range/Units 14:10 Urine Color Yellow (Yellow) Urine Appearance Clear (CLEAR) Urine pH 7 (5-7) Ur Specific Mousie 1.010 (1.005-1.030) Urine Protein Neg (Negative) Urine Glucose (UA) Norm (Normal) Urine Ketones Negative (Negative) Urine Nitrate Negative (Negative) Urine Bilirubin Neg (Negative) Ur Leukocyte Esterase Negative (Negative) Coags 02/03/22 02/03/22 03:02 03:02 ESR 58 H C-Reactive Protein 276.9 H Microbiology 02/02/22 18:47 Blood Culture - Preliminary Blood SPECIMEN COLLECTED 02/02/22 18:44 Blood Culture - Preliminary Blood SPECIMEN COLLECTED Cardiac Studies: No Data to Display
[2022-02-03] MEDS: aspirin 81 mg EC Tablet PO (08:37)
--- NOTE | 2022-02-03 09:10 | P.CONIM_ITS ---
Providers/Reason For Consult Consulting Physician/Specialty*: neurology/ Dr colbert Reason for Consult*: cervical epidural abscess Attending Physician: Logan Meza MD Primary Care Provider: Devika Garcia-Brittney History of Present Illness History of Present Illness Jazmine Cancino is a 41 year old female has been having neck pain for the past 4 days. Yesterday she fell when she get up from the couch hit her head and at this point has had weakness in arms and legs. Patient has a history of IV drug abuse approximately 7 months ago. Review of Systems Narrative: General ROS: negative for weight changes, fever ENT ROS: negative for nasal congestion, drainage or bleeding, sore throat, dysphagia or ear pain Eyes: PERRL Hematological and Lymphatic ROS: negative for swollen glands or abnormal bleeding Endocrine ROS: negative for polyuria/polydpsia or new changes in weight Respiratory ROS: negative for cough, shortness of breath, or wheezing Cardiovascular ROS: negative for chest pain or dyspnea on exertion Gastrointestinal ROS: negative for reflux, abdominal pain, change in bowel habits, or black or bloody stools Musculoskeletal ROS: negative for back pain, neck pain, or joint pain or swelling except for current problem Neurological ROS: negative for TIA or stoke symptoms Skin: no rashes Medications/Allergies Home Medications Medication Instructions Recorded Confirmed Last Taken Type aspirin 81 mg tablet,delayed 81 mg PO DAILY 02/02/22 02/02/22 02/01/22 History release atenolol 50 mg tablet 50 mg PO DAILY PRN 02/02/22 02/02/22 Unknown History buprenorphine 8 mg-naloxone 2 mg 1 film SUBLINGUAL TID 02/02/22 02/02/22 02/01/22 History sublingual film (Suboxone) cyclobenzaprine 10 mg tablet 10 mg PO TID PRN 02/02/22 02/02/22 Unknown History gabapentin 300 mg capsule 300 mg PO TID 02/02/22 02/02/22 02/01/22 History ibuprofen 600 mg tablet 600 mg PO QID PRN 02/02/22 02/02/22 Unknown History naloxone 4 mg/actuation nasal See Rx Instructions .ROUTE 02/02/22 02/02/22 Unknown History spray (Narcan) .COMPLEX PRN quetiapine 200 mg tablet 200 mg PO BEDTIME 02/02/22 02/02/22 02/01/22 History Allergies Allergy/AdvReac Type Severity Reaction Status Date / Time Sulfa (Sulfonamide Allergy Unknown Verified 01/17/20 15:16 Antibiotics) Current Medications Generic Name Dose Route Start Last Admin Trade Name Freq PRN Reason Stop Dose Admin Aspirin 81 mg 02/03/22 09:00 02/03/22 08:37 Aspirin 81 Mg Ec Tablet PO 81 mg DAILY DORA Administration Dexamethasone 4 mg 02/02/22 20:37 02/03/22 08:36 Dexamethasone 4 Mg/Ml Inj IVP 4 mg Q6H DORA Administration Enoxaparin Sodium 40 mg 02/02/22 17:30 02/02/22 18:52 Enoxaparin 40 Mg/0.4 Ml Syringe SUBCUT 40 mg Q24H DORA Administration Piperacillin Sod/Tazobactam 50 mls @ 12.5 mls/hr 02/02/22 19:00 02/03/22 02:58 Sod 3.375 gm/ Sodium Chloride IV 12.5 mls/hr Q8H DORA Administration Protocol Sodium Chloride 1,000 mls @ 100 mls/hr 02/02/22 21:30 02/03/22 07:21 Sodium Chloride 0.9% IV 100 mls/hr .Q10H DORA Administration Morphine Sulfate 2 mg 02/02/22 21:26 02/03/22 01:27 Morphine 4 Mg/Ml Sdv 1 Ml IVP 2 mg Q4H PRN Administration SEVERE PAIN Oxycodone/Acetaminophen 1 tab 02/02/22 21:26 02/03/22 05:15 Oxycodone-Apap 5-325 Mg Tablet PO 1 tab Q6H PRN Administration MODERATE PAIN Quetiapine Fumarate 200 mg 02/02/22 21:00 02/02/22 20:45 Quetiapine 100 Mg Tablet PO 200 mg BEDTIME DORA Administration PFSH Acute PFSH: Family History Denies family history of Cancer Social History Smoking and tobacco status: current every day smoker Female Reproductive History: Date of last menstrual period: 09/30/21 Vitals/I&O/Wt Last Vital Signs Temp 97.8 F 02/03/22 05:49 Pulse 75 02/03/22 08:25 Resp 16 02/03/22 08:25 BP 126/71 02/03/22 04:15 Pulse Ox 93 02/03/22 08:25 02/02/22 02/03/22 02/03/22 22:59 06:59 14:59 Intake Total 725 / 725 300 / 1025 970 / 970 Output Total 1600 / 1600 Balance 725 / 725 -1300 / -575 970 / 970 Weight last 48 hrs Weight 160 lb Physical Exam Narrative: CONSTITUTIONAL: The patient is a normal appearing [] in no apparent distress. GENERAL: Patient in no acute distress. CARDIAC: Regular rate and rhythm. CHEST: Normal inspiratory effort, normal respiratory rate. ABDOMEN: Soft and nontender. SKIN: Clear, warm and intact. NEURO?PSYCH: The patient is alert and oriented to person, place and time. Sensorv /SILT Motor StrengthShoulder abduction C5 3/5Wrist extension C6 0/5Elbow extension C7 0/5Hand Case Packer C8 0/5Finger abduction T15/5 Radial/ Ulnar/ Median n intact LowerSensory (SILT)Motor StrengthHin flexion L2/3Ant/inner thigh 1/5Hip adduction L2/3 1/5Knee extension L4 Lat thigh, 1/5Toe dorsiflexion L5 1/5Ankle dorsiflexion L5/ [id number] flexion S1 1/5 DTRBleeps 2+Triceps 2+Brachioradialis 2+Patellar 2+Achilles 2+ MUSCULOSKELETAL: [] UPPEREXTREMITIES: The patientpt can't active ROM in fingers, wrist, elbow, and shoulder. The patient demonstrated ability to fully flex/extend/abduct/adduct fingers, make ok sign, cross 2nd/3rd digits, extend 1st digit fully.. Radial pulse 2+, CR<2 seconds. LOWER EXTREMITIES: Pt can't active ROM of toes, ankle, knee, and hip. Dorsalis pedis/posterior tibialis pulses 2+, CR<2 seconds. SPINE: Skin warm, dry, intact. Urinary Catheter Management: Simon: Cath Placed During This Visit: yes Reason for Continuing Indwelling Catheter: Accurate Measurement of Urinary Output in Critically Ill Patients Urinary Catheter Date of Insertion: 02/02/22 Urinary Catheter Time of Insertion: 18:00 Data : 02/03/22 03:02 02/03/22 03:02 Micro: Microbiology 03/06/22 18:47 Blood Culture - Preliminary Blood SPECIMEN COLLECTED 02/02/22 18:44 Blood Culture - Preliminary Blood SPECIMEN COLLECTED A&P Assessment and plan (1) Abscess in epidural space of cervical spine: C5 and C6 partial corpectomy and ACDF, ACDF C2/3 Status: Acute Consult Attestations Medical Necessity Statement: spinal cord injury Coding Level of Care Code Acute 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
--- NOTE | 2022-02-03 10:05 | PC.NURSE ---
MRSA swab collected and given to Clara in lab.
[2022-02-03 10:23] LABS: Iron 16 ug/dL (37-145); Percent Saturation 7.1 % (20-50); Total Iron Binding Capacity 225 mcg/dl; Unsaturated Iron Binding 209 ug/dL (112-347)
[2022-02-03 10:30] LABS: Procalcitonin 0.08 ng/mL (0-0.5)
--- NOTE | 2022-02-03 11:07 | PC.CHAP ---
Pastoral Care Encounter/Spiritual Assessment Type of Contact [] Declined medical laboratory manager visit [] Patient/Family/Request visit [] Outpatient visit [] Follow-up visit [] Physician referral [] Code/Alert [x] Routine visit [] Staff referral [] Actively dying [] Patient sleeping [] Family support [] [] Out of room [] Palliative care [] [] Receiving care in room [] Pre-surgical visit [] Trauma [] Long length of stay [x] ICU visit [] Other: Relational/Emotional Strength [] Patient feels connected with others/family/visitors/staff [] Distress [] Loneliness/isolation [] Abandonment Spirituality of Patient [] Person of Marjorie [] Attends Episcopal of their Marjorie [] Believes in Prayer [] Reads Bible or Amish materials [] There are Spiritual issues to be addressed Ply Cutter Interventions [x] Prayer [x] Active listening [x] Non-anxious presence [x] Spiritual/emotional support [] Crisis/trauma care [] Spiritual counseling [] Bereavement support [] Provided bereavement packet [] Provided Bible/devotional materials [] Provided toy/stuffed animal, coloring book to patient or family member [] Provided Communion [] Anointing/Rosanky [] Salvation [x] Completed spiritual assessment [] Other: Impact on Illness or Injury [] Angry [] Fearful [] Anxious [] Often cries [] Exhaustion [] Unable to work [] Unable to attend baptism [] Unable to walk/stand [] Unable to read [] Unable to drive [] Unable to eat/drink [] Unable to sleep [] Unable to be with family [] Patient intubated [] Other: Summary no feelings in legs or arms.... Time spent with patient 10 min
--- NOTE | 2022-02-03 11:39 | P.ANES_ITS ---
Anesthesia Procedures Procedure/Date: 02/03/22 Arterial Line: Time Out Performed: Yes Consent: from patient Size (Gauge): 20 Technique Used: other (US) Post-Procedure: dry sterile dressing placed Patient Tolerated Procedure: well Complications: none Site: right and radial Additional Comments: After sterile prep, using sterile technique, and using real time US guidance for vessel selection an 20 g radial arterial was inserted with real time visual ization of needle entry and real time visualization of catheter advancement. Tolerated well. 1 attempt.
[2022-02-03 13:10] LABS: Bacillus cereus group Not Detected (NOT DETECT); Bacillus subtillis group Not Detected (NOT DETECT); Corynebacterium Not Detected (NOT DETECT); Cutibacterium acnes (P.acnes) Not Detected (NOT DETECT); Enterococcus Not Detected (NOT DETECT); Enterococcus faecalis Not Detected (NOT DETECT); Enterococcus faecium Not Detected (NOT DETECT); Lactobacillus species Not Detected (NOT DETECT); Listeria Not Detected (NOT DETECT); Listeria monocytogenes Not Detected (NOT DETECT); Micrococcus Not Detected (NOT DETECT); Pan Candida Not Detected (NOT DETECT); Pan Gram-Negative Not Detected (NOT DETECT); Staphylococcus epidermidis Not Detected (NOT DETECT); Staphylococcus lugdunensis Not Detected (NOT DETECT); Staphylococcus species Detected (NOT DETECT); Streptococcus agalactiae Not Detected (NOT DETECT); Streptococcus anginosus group Not Detected (NOT DETECT); Streptococcus pneumoniae Not Detected (NOT DETECT); Streptococcus pyogenes Not Detected (NOT DETECT); Streptococcus species Not Detected (NOT DETECT); mecA Not Detected (NOT DETECT); mecC Not Detected (NOT DETECT)
--- NOTE | 2022-02-03 13:39 | P.PN_ITS ---
Subjective Subjective: Hospital course, labs appreciated. Today morning on examination patient lying comfortably in bed. Complaining of occasional pain in the back. Plan for OR today. Patient anxious about the same. Has remained hemodynamically stable and afebrile. Currently on 2 to 3 L of oxygen supplementation keeping saturation over 90%. Vitals/I&O/Wt Last Vital Signs Temp 97.8 F 02/03/22 05:49 Pulse 72 02/03/22 10:00 Resp 19 H 02/03/22 10:00 BP 130/75 02/03/22 10:00 Pulse Ox 90 02/03/22 10:00 02/02/22 02/03/22 02/03/22 22:59 06:59 14:59 Intake Total 725 / 725 300 / 1025 1030 / 1030 Output Total 1600 / 1600 Balance 725 / 725 -1300 / -575 1030 / 1030 Weight last 48 hrs Weight 72.575 kg Physical Exam Const: COMMON NORMALS: patient oriented x3 HENMT: COMMON NORMALS: normocephalic, atraumatic and external ears normal HEAD & SCALP: normocephalic and atraumatic EXTERNAL EAR: Yes external ears normal Eye: GENERAL EYE: appearance normal, both eyes and all related structures Chest: COMMONS NORMALS: normal inspection of the chest and normal palpation of entire chest wall CHEST: Yes Symmetrical chest wall rise Resp: COMMON NORMALS: normal respiratory effort, No retractions, No use of accessory muscles and clear to auscultation bilaterally EFFORT & INSPECTION: Yes symmetric chest movement AUSCULTATION: clear to auscultation bilaterally Cardio: COMMON NORMALS: regular rate, regular rhythm, S1 normal heart sound present, S2 normal heart sound present, No gallops present (Cardio), No murmurs present (Cardio), No rub (Cardio) and Peripheral pulses 2+ throughout RATE: regular rate RHYTHM: regular rhythm HEART SOUNDS: S1 normal heart sound present and S2 normal heart sound present PERIPHERAL PULSES: Peripheral pulses 2+ throughout GI: COMMON NORMALS: Normal to inspection, nondistended, normoactive bowel sounds present, Soft to palpation, non-tender, No hepatosplenomegaly present and no masses AUSCULTATION: Yes normoactive bowel sounds PALPATION: Yes Soft to palpation and Yes No hepatosplenomegaly present RECTAL EXAM: deferred Extremity: COMMON NORMALS: no clubbing, cyanosis or edema and no pedal edema Neuro: COMMON NORMALS: patient oriented x3 Urinary Catheter Management: Simon: Cath Placed During This Visit: yes Reason for Continuing Indwelling Catheter: Accurate Measurement of Urinary Output in Critically Ill Patients Urinary Catheter Date of Insertion: 02/02/22 Urinary Catheter Time of Insertion: 18:00 Data : 02/03/22 03:02 02/03/22 03:02 Micro: Microbiology 02/02/22 18:44 Blood Culture - Preliminary Blood Staphylococcus aureus 02/02/22 18:47 Blood Culture - Preliminary Blood Staphylococcus aureus A&P Assessment and plan (1) Staphylococcus aureus bacteremia: Status: Acute (2) Quadriplegia: Status: Acute (3) Abscess in epidural space of cervical spine: Status: Acute (4) Spinal stenosis in cervical region: Status: Acute Plan Quadriplegia: Most likely secondary to epidural abscess at cervical spine along with discitis at C5/C6. Plan for the OR today with Dr. Mathew. Continue with dexamethasone 4 mg IV every 6 hourly. Physical therapy post OR. Anticoagulation, pain medication as per surgical team. Staph bacteremia: Repeat blood culture tomorrow morning. MRSA swab. Follow-up culture sensitivities and change antibiotic accordingly. For now continue with vancomycin and Zosyn. Plan to keep vancomycin trough over 15. 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 Will need ID consultation. Code Status :Full code Lovenox for DVT prophylaxis. Famotidine for PUD prophylaxis. On review of outpatient medicine it seems patient is supposed to be on Suboxone 8/2 mg. On confirming with pharmacy patient has not refilled this medication since October 2021. Hold off on Suboxone for now. Dilaudid 1 mg IV every every 6 hours as needed for pain. Attestations Medical Necessity Statement*: Requires further hospitalization for management of quadriplegia secondary to epidural abscess at C5/C6 region, Staphylococcus bacteremia Time Spent in Patient Care: Greater than 35 minutes Procedures Arterial Line Size (Gauge): 20 Coding Level of Care Code Acute Machine Assembler Supervisor for Chg Fwd Diagnoses Abscess in epidural space of cervical spine G06.1 Spinal stenosis in cervical region M48.02 Quadriplegia G82.50 Staphylococcus aureus bacteremia R78.81; B95.61
--- NOTE | 2022-02-03 13:59 | P.OP_ITS ---
Operative Report Date of procedure: February 03, 2022 Pre-op diagnosis: Cervical epidural abscesss Post-op diagnosis: same Procedure done: 1. Anterior diskectomy C5/6 2. Insertion of cage C5/6 3. Instrumentation with anterior plate from C5-C6 4. Anterior discectomy C2/3 5. Insertion of cage C2/3 6. Indtrumentation with anterior plate C2/3 7. Use of allograft Surgeon: Aj Mathew Sourcing Associate: Juan Jose Tate Sourcing Associate: The occupational therapist assistants, Juan Jose Tate, RAE was needed for his expertise under the microscope. He was important and necessary throughout the procedure to complete in a safe and timely manner. He assisted with patient positioning prepping and draping tissue retraction suctioning of the operative field protection of the dural sac and tissue closure Estimated blood loss (mL): 50 Procedure: 1. Anterior diskectomy C5/6 2. Insertion of cage C5/6 3. Instrumentation with anterior plate from C5-C6 4. Anterior discectomy C2/3 5. Insertion of cage C2/3 6. Indtrumentation with anterior plate C2/3 7. Use of allograft The patient was taken to the operating room, where he underwent general endotracheal anesthesia without complications. He was then positioned supine on the operating table, and all areas of impingement were well padded. The arms were carefully padded and tucked at his sides. A roll was placed between the shoulder blades.. An x-ray was done to determine the appropriate level for the skin incision. The entire neck was then sterilely prepped and draped in the usual fashion. Neuromonitoring was attached prior to prepping. A transverse skin incision was made and carried down to the platysma muscle. This was then split in line with its fibers. Blunt dissection was carried down medial to the carotid sheath and lateral to the trachea and esophagus until the anterior cervical spine was visualized. A needle was placed into a disc and an x-ray was done to determine its location. The longus colli muscles were then elevated bilaterally with the electrocautery unit. Self-retaining retractors were placed deep to the longus colli muscle. Attention was brought to the C5/6 level that was confirmed on x-ray. The microscope was then brought in. A radical anterior discectomies were performed at C[]. This included complete removal of the anterior annulus, nucleus, and posterior annulus. The posterior longitudinal ligament was removed as were the posterior osteophytes. Foraminotomies were then accomplished bilaterally. This was done using a high speed [place], [place] rongeurs and curretes Once all of this was accomplished, the curved currette was used to check for any residual compression. The central canal was wide open as were the foramen. The bone was taken down superiorly and inferiorly the inferior aspect of C5 was about 25% and the superior aspect of C6 was 25% this was taken down using high-speed bur the ligamentum flavum was taken down once getting posteriorly to the posterior aspect is displaced the posterior longitudinal ligament was partially away with bacteria purulence was identified cultures were taken. And the wound was copiously irrigated. A high-speed bur was used to remove the cartilaginous endplates above and below the interspace. Bleeding cancellous bone was exposed. The disc space were measured and appropriate size cage were placed sterilely onto the field. Allograft graft was packed into the cages. The cage was then placed and there was good juxtaposition against the bleeding decorticated surfaces and good distraction of each interspace. Attention was brought to the next interspace. The [place] pins were removed. Bone wax was used to prevent any bleeding from occurring at the pin sites. The appropriate size anterior cervical locking plate was chosen and bent into gentle lordosis. One screws were then placed into each of the vertebral bodies a t C5 and C6. There was excellent purchase. A final x-ray was done confirming good position of the hardware and Cages. The locking screws were then applied, also with excellent purchase. Attention was brought to the C2/3 level that was confirmed on x-ray. The platysmas was undermined. microscope was then brought in. A radical anterior discectomies were performed at C2/3. This included complete removal of the anterior annulus, nucleus, and posterior annulus. The posterior longitudinal ligament was removed as were the posterior osteophytes. Foraminotomies were then accomplished bilaterally. This was done using a high speed [place], [place] rongeurs and curretes Once all of this was accomplished, the curved currette was used to check for any residual compression. The central canal was wide open as were the foramen. A high-speed bur was used to remove the cartilaginous endplates above and below the interspace. Bleeding cancellous bone was exposed. The disc space were measured and appropriate size cage were placed sterilely onto the field. Allograft graft was packed into the cages. The cage was then placed and there was good juxtaposition against the bleeding decorticated surfaces and good distraction of each interspace. Attention was brought to the next interspace. The [place] pins were removed. Bone wax was used to prevent any bleeding from occurring at the pin sites. The appropriate size anterior cervical locking plate was chosen and bent into gentle lordosis. One screws were then placed into each of the vertebral bodies at C2 and C3. C3 screw would not lock into the plate was removed and the plate will be used as a buttress. There was excellent purchase. A final x-ray was done confirming good position of the hardware and Cages. The locking screws were then applied, also with excellent purchase. Patient had 2 separate levels done one at C5-6 and one at C2-3 these levels were the levels where the purulence was found. There is much more purulence at the C5-6 level. At the C2-3 level there was not any that was clearly identified. Following a final copious irrigation, there was good hemostasis and no dural leaks. The carotid pulse was strong. The wounds were then closed in layers using 2-0 Vicryl suture for the platysma muscle, 2-0 Vicryl suture for the subcutaneous tissue, and 4-0 monocryl suture in a subcuticular skin closure. Glue was placed followed by application of a sterile dressing. The drain was hooked to bulb suction. A soft collar was applied. The patient was then carefully returned to the supine position on his hospital bed where he was reversed and extubated and taken to the recovery room having tolerated the procedure well.
--- NOTE | 2022-02-03 16:42 | ANE.PACU2 ---
Inpatient post-anesthesia follow up: Airway intact: Yes Vital signs: Temperature 97.8 F Pulse Rate 77 Respiratory Rate 18 Blood Pressure 130/75 Pulse Oximetry 94 Oxygen Delivery Me thod Nasal Cannula Oxygen Flow Rate 2 Fraction of Inspir ed Oxygen Hydration adequate: Yes Nausea and vomiting: No Pain level: 5 Mental status: Baseline
[2022-02-03] MEDS: gabapentin 300 mg Capsule PO ×2 (17:29→20:17)
[2022-02-03] MEDS: enoxaparin 40 mg/0.4 mL Syringe SUBCUT (17:31)
[2022-02-03] MEDS: lactated ringers 1,000 ML 90 ML IV (17:31)
[2022-02-03] MEDS: HYDROmorphone 1 mg/mL INJ 1 mL IVP (17:41)
[2022-02-03] MEDS: famotidine 20 mg Tablet PO (17:58)
[2022-02-03] MEDS: docusate sodium 100 mg Capsule PO (18:01)
[2022-02-03] MEDS: diazePAM 5 mg Tablet PO (19:53)
[2022-02-03] MEDS: quetiapine 100 mg Tablet 200 MG PO (20:17)
[2022-02-03] MEDS: HYDROcodone-acetaminophen 5-325 mg Tablet PO (21:59)
[2022-02-03] MEDS: ketorolac 30 mg/mL INJ IVP (22:01)
[2022-02-04] VITALS (25 sets, daily range): BP systolic 115–150; BP diastolic 60–93; PULSE 63–81; RESP 4–24; TEMP 36.6–37.2; O2SAT 91–99
[2022-02-04] MEDS: HYDROmorphone 1 mg/mL INJ 1 mL IVP ×2 (00:24→07:29)
[2022-02-04] MEDS: piperacillin-tazobactam 3.375 GM in sodium chloride 0.9% (plus) 50 ML IV ×3 (00:25→16:35)
[2022-02-04] MEDS: sodium chloride 0.9% 1,000 ML 100 ML IV ×2 (00:31→10:52)
[2022-02-04] MEDS: vancomycin 1,000 MG in sodium chloride 0.9% 250 ML 250 MG IV ×3 (01:32→16:35)
[2022-02-04] MEDS: HYDROcodone-acetaminophen 5-325 mg Tablet PO (04:12)
[2022-02-04] MEDS: diazePAM 5 mg Tablet PO (04:12)
[2022-02-04] MEDS: ketorolac 30 mg/mL INJ IVP ×2 (04:13→12:48)
[2022-02-04] MEDS: enoxaparin 40 mg/0.4 mL Syringe SUBCUT ×2 (05:29→05:30)
[2022-02-04] MEDS: dexamethasone 4 mg/mL INJ IVP ×4 (05:29→22:42)
[2022-02-04 05:42] LABS: Basophils % 0.1 %; Hematocrit 33.7 % (37.0-47.0); Hemoglobin 10.7 g/dL (11.5-15.3); Lymphocytes # 1.7 10^3/uL (0.8-4.8); Lymphocytes % 13.2 %; Mean Corpuscular HGB Conc 31.8 g/dL (30.0-36.0); Mean Corpuscular Hemoglobin 27.7 pg (28.0-34.0); Mean Corpuscular Volume 87.3 fl (81-99); Monocytes # 0.9 10^3/uL (0.2-0.9); Monocytes % 6.9 %; Neutrophils # 10.33 10^3/uL (1.8-7.7); Neutrophils % 79.3 %; Nucleated Red Blood Cells % 0 %; Platelet Count 344 10^3/cmm (130-400); Red Blood Count 3.86 10^6/uL (4.1-5.3); Red Cell Distribution Width 14.7 % (12.1-15.1)
--- NOTE | 2022-02-04 05:54 | PC.NURSE ---
0500 DC [place] tip intact right radial pressure held 10 min pressure dsg applied
[2022-02-04 05:57] LABS: Estmated Average Glucose 108; Hemoglobin A1C 5.4 % (4.0-6.0)
[2022-02-04 05:59] LABS: Alanine Aminotransferase 7 U/L (0-33); Albumin Level 2.8 g/dL (3.5-5.2); Alkaline Phosphatase 106 IU/L (35-105); Anion Gap 14.7 (5-19); Aspartate Amino Transferase 12 U/L (0-32); Blood Urea Nitrogen 23 mg/dL (6-20); Calcium 8.3 mg/dL (8.5-10.5); Carbon Dioxide 22 mmol/L (22-29); Chloride 108 mmol/L (98-107); Creatinine Clr Calc Pharmacy 154.2516; Globulin 3.7 g/dL (1.3-4.6); Glucose 152 mg/dL (65-115); Osmolality Calculated 297 mOsm/kg (285-295); Potassium 4.7 mmol/L (3.5-5.1); Sodium 140 mmol/L (136-145); Total Bilirubin 0.2 mg/dL (0.15-1.2); Total Protein 6.5 g/dL (6.6-8.7)
[2022-02-04 06:00] LABS: Chol HDL Ratio 4.81 mg/dL (0.0-4.40); Cholesterol 154 mg/dL (0-200); HDL Cholesterol 32 mg/dL (60-100); LDL Cholesterol Calculated 102 mg/dL (50-129); Triglycerides 102 mg/dL (0-150); VLDL Cholestrol Calculation 20 mg/dL (0-30)
--- NOTE | 2022-02-04 07:45 | PM.PN ---
Subjective Subjective: POD 1 Pt reports less pain but still unable to move BLE, can move shoulders better but cannot moves hands,fingers. Mild swallowing discomfort. Denies PHAM, SOB or CP Vitals/I&O/Wt Last Vital Signs Temp 98.4 F 02/04/22 05:19 Pulse 70 02/04/22 05:13 Resp 16 02/04/22 02:00 BP 150/79 02/03/22 19:00 Pulse Ox 92 02/03/22 21:12 02/03/22 02/04/22 02/04/22 22:59 06:59 14:59 Intake Total 1560 / 2590 480 / 3070 Output Total 680 / 680 1000 / 1680 Balance 880 / 1910 -520 / 1390 Weight last 48 hrs Weight 160 lb Physical Exam Narrative: Patient is alert oriented x3. No apparent distress. Patient can abduct both shoulders with good strength. Good sensation over the shoulders but decreases down into the hands. She is unable to move her digits on both hands. She has sensation of cold in both lower extremities and dorsiflexes both feet upon touching both legs but is unable to move feet and toes in either lower extremity. They are warm to the touch with good capillary refill dorsalis pedis and posterior tibial pulses are weak but palpable. Calves are supple. Incision is clean and dry Hemovac drain present. Urinary Catheter Management: Simon: Cath Placed During This Visit: yes Reason for Continuing Indwelling Catheter: Accurate Measurement of Urinary Output in Critically Ill Patients Urinary Catheter Date of Insertion: 02/02/22 Urinary Catheter Time of Insertion: 18:00 Data : 02/04/22 04:50 02/04/22 04:50 Micro: Microbiology 02/04/22 05:02 Blood Culture - Preliminary Blood SPECIMEN COLLECTED 02/04/22 04:50 Blood Culture - Preliminary Blood SPECIMEN COLLECTED 02/02/22 18:47 Blood Culture - Preliminary Blood Staphylococcus aureus 02/02/22 18:44 Blood Culture - Preliminary Blood Staphylococcus aureus A&P Assessment and plan (1) Abscess in epidural space of cervical spine: Discontinue Hemovac drain and downsize the dressing. I provided a Silverlon dressing to the nurse. Continue [place] J collar. Restrict movement of the cervical spine. Continue to work with movements of upper and lower extremities with physical therapy. Lengthy discussion with the patient regarding prognosis with too early to tell as to her status of spinal cord injury. But encouraged her to continue to work hard with her recovery and physical therapy. Continued antibiotics with medical team. Status: Acute (2) Status post cervical spinal fusion: Status: Acute Attestations Medical Necessity Statement*: defer to medical team Procedures Arterial Line Size (Gauge): 20 Coding Level of Care Code Acute Assembler Show Motor for Conrad Lilly Diagnoses Abscess in epidural space of cervical spine G06.1 Status post cervical spinal fusion Z98.1
--- NOTE | 2022-02-04 07:52 | P.PN_ITS ---
Subjective Subjective: POD 1 Patient is resting comfortably. Movement of both shoulders has improved but still weak in both hands and unable to move digits. No motor function of her legs only sensation. Mild swallowing discomfort. Denies headaches or shortness of breath or chest pain. Vitals/I&O/Wt Last Vital Signs Temp 98.4 F 02/04/22 05:19 Pulse 70 02/04/22 05:13 Resp 16 02/04/22 02:00 BP 150/79 02/03/22 19:00 Pulse Ox 92 02/03/22 21:12 02/03/22 02/04/22 02/04/22 22:59 06:59 14:59 Intake Total 1560 / 2590 480 / 3070 Output Total 680 / 680 1000 / 1680 Balance 880 / 1910 -520 / 1390 Weight last 48 hrs Weight 160 lb Physical Exam Narrative: Patient is alert oriented x3 with a good general appearance. Good strength with shoulder abduction is 4/5 but weak in hands and no movement of the digits. Hands arms are warm radial pulses palpable. Sensory to light touch and reports feeling of cold sensation on her hands. No motor function of lower extremities but does have sensation to cold touch down her legs and feet. Calves are supple pulses are weak but palpable. Incision is clean and dry Hemovac drain present. Urinary Catheter Management: Simon: Cath Placed During This Visit: yes Reason for Continuing Indwelling Catheter: Accurate Measurement of Urinary Output in Critically Ill Patients Urinary Catheter Date of Insertion: 02/02/22 Urinary Catheter Time of Insertion: 18:00 Data : 02/04/22 04:50 02/04/22 04:50 Micro: Microbiology 02/04/22 05:02 Blood Culture - Preliminary Blood SPECIMEN COLLECTED 02/04/22 04:50 Blood Culture - Preliminary Blood SPECIMEN COLLECTED 02/02/22 18:47 Blood Culture - Preliminary Blood Staphylococcus aureus 02/02/22 18:44 Blood Culture - Preliminary Blood Staphylococcus aureus A&P Assessment and plan (1) Status post cervical spinal fusion: Nurse was given a [place] dressing to downsize the anterior cervical dressing and discontinue the Hemovac drain. Continue to work with physical therapy for range of motion to both upper and lower extremities. Continue logrolling to prevent pressure sores. Continue with antibiotics per the medical team. Had a lengthy discussion with the patient her long-term prognosis is too early to tell but encouraged her to continue working hard with her recovery. Incentive spirometry for pulmonary toilet. Continue [place] J collar with minimal movement of the cervical spine. Status: Acute (2) Abscess in epidural space of cervical spine: Status: Acute Attestations Medical Necessity Statement*: Defer to medical team Procedures Arterial Line Size (Gauge): 20 Coding Level of Care Code Acute Machine Operators for Chg Fwd Diagnoses Status post cervical spinal fusion Z98.1 Abscess in epidural space of cervical spine G06.1
--- NOTE | 2022-02-04 08:11 | P.PN_ITS ---
Subjective Subjective: Dr. Mathew's operative report was reviewed. This patient had extensive pathology all the way up to C2. She describes feeling like she cannot get a deep breath. She is experiencing flexor spasms with any stimulation. She did not sleep all night and requests that her Seroquel be increased. Vitals/I&O/Wt Last Vital Signs Temp 98.4 F 02/04/22 05:19 Pulse 70 02/04/22 05:13 Resp 16 02/04/22 02:00 BP 150/79 02/03/22 19:00 Pulse Ox 92 02/03/22 21:12 02/03/22 02/04/22 02/04/22 22:59 06:59 14:59 Intake Total 1560 / 2590 480 / 3070 Output Total 680 / 680 1000 / 1680 Balance 880 / 1910 -520 / 1390 Weight last 48 hrs Weight 160 lb Physical Exam Narrative: She is alert and oriented. It looks like she is having difficulty taking a deep breath. Cranial nerves intact. Motor she has more strength in deltoids and biceps than she did preop but nothing below that. She has flexor spasms in the upper and lower extremities induced by stimulation. Sensory she has paresthesias evoked by touch at C7. Touch intact in all 4 extremities. Both toes are upgoing. Urinary Catheter Management: Simon: Cath Placed During This Visit: yes Reason for Continuing Indwelling Catheter: Accurate Measurement of Urinary Output in Critically Ill Patients Urinary Catheter Date of Insertion: 02/02/22 Urinary Catheter Time of Insertion: 18:00 Data : 02/04/22 04:50 02/04/22 04:50 Micro: Microbiology 02/04/22 05:02 Blood Culture - Preliminary Blood SPECIMEN COLLECTED 02/04/22 04:50 Blood Culture - Preliminary Blood SPECIMEN COLLECTED 02/02/22 18:47 Blood Culture - Preliminary Blood Staphylococcus aureus 02/02/22 18:44 Blood Culture - Preliminary Blood Staphylococcus aureus A&P Assessment and plan (1) Abscess in epidural space of cervical spine: Status: Acute (2) Spinal stenosis in cervical region: Status: Acute (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 I am concerned that she may have some diaphragmatic dysfunction from the high cervical injury. She says she is absolutely to claustrophobic to ever consider CPAP and there is little point in diagnosing sleep apnea. Start baclofen 10 mg 4 times daily for her flexor spasms. Occupational Therapy for her hand position. Increase Seroquel 300 mg at at bedtime to improve sleep Status: Acute Attestations Medical Necessity Statement*: Spinal cord compression due to epidural abscess status post cervical fusion. Ongoing complications of spinal cord compression and quadriplegia Procedures Arterial Line Size (Gauge): 20 Coding Level of Care Code Acute Clinical Studies Specialist for Conrad Lilly Diagnoses Abscess in epidural space of cervical spine G06.1 Spinal stenosis in cervical region M48.02 Spastic quadriparesis G82.50
--- NOTE | 2022-02-04 08:19 | PC.NURSE ---
[id number] Dr. Mathew's editorial assistant brought a dressing from surgery, and ask me to remove present dressing and drain and place new dressing on. I removed dressing and released suction on drain and removed the drain and observe stiches in place. I put on new dressing as was ask to. Patient tolerated well. Each time I touch the patients hand or feet, it would cause it to spasm. Dr Juarez visited.
[2022-02-04 08:57] LABS: Vancomycin Trough 13.2 ug/mL (10-15)
[2022-02-04] MEDS: aspirin 81 mg EC Tablet PO (09:44)
[2022-02-04] MEDS: gabapentin 300 mg Capsule PO ×3 (09:44→20:29)
[2022-02-04] MEDS: famotidine 20 mg Tablet PO ×2 (09:44→17:42)
[2022-02-04] MEDS: docusate sodium 100 mg Capsule PO ×2 (09:44→17:42)
[2022-02-04] MEDS: baclofen 10 mg Tablet PO ×4 (09:44→20:29)
[2022-02-04] MEDS: HYDROcodone-acetaminophen 5-325 mg Tablet 1 TAB PO ×2 (10:48→19:50)
[2022-02-04] MEDS: amlodipine 5 mg Tablet PO (10:48)
[2022-02-04] MEDS: ALPRAZolam 0.5 mg Tablet PO (12:49)
[2022-02-04] MEDS: HYDROmorphone 1 mg/mL INJ 1 mL 0.5 MG IVP ×2 (14:16→20:29)
--- NOTE | 2022-02-04 15:34 | P.PN_ITS ---
Subjective Subjective: No acute events overnight. Patient has remained hemodynamically stable and afebrile. Remains on room air. NIF of more than -20. Currently patient is in cervical collar. Able to move her arms today up to her face. Still no movement in her lower limbs. Still having bilateral lower limb muscula r painful twitching. Able to have her meals. Denies any nausea, vomiting, headache. Vitals/I&O/Wt Last Vital Signs Temp 98.4 F 02/04/22 12:00 Pulse 70 02/04/22 14:00 Resp 18 02/04/22 14:16 BP 150/79 02/04/22 12:00 Pulse Ox 95 02/04/22 14:16 02/04/22 02/04/22 02/04/22 06:59 14:59 22:59 Intake Total 480 / 3070 2608.333 / 2608.333 Output Total 1000 / 1680 Balance -520 / 1390 2608.333 / 2608.333 Physical Exam Narrative: In cervical collar Const: COMMON NORMALS: patient oriented x3 and alert ORIENTATION/CONSCIOUSNESS: Yes oriented to person, Yes oriented to place and Yes oriented to time HENMT: COMMON NORMALS: normocephalic, atraumatic and external ears normal HEAD & SCALP: normocephalic and atraumatic EXTERNAL EAR: Yes external ears normal Eye: GENERAL EYE: appearance normal, both eyes and all related structures Neck/C-Spine: COMMON NORMALS: no meningeal signs Chest: COMMONS NORMALS: normal inspection of the chest and normal palpation of entire chest wall CHEST: Yes Symmetrical chest wall rise Resp: COMMON NORMALS: normal respiratory effort, No retractions, No use of accessory muscles and clear to auscultation bilaterally EFFORT & INSPECTION: Yes symmetric chest movement AUSCULTATION: clear to auscultation bilaterally Cardio: COMMON NORMALS: regular rate, regular rhythm, S1 normal heart sound present, S2 normal heart sound present, No gallops present (Cardio), No murmurs present (Cardio), No rub (Cardio) and Peripheral pulses 2+ throughout RATE: regular rate RHYTHM: regular rhythm HEART SOUNDS: S1 normal heart sound present and S2 normal heart sound present PERIPHERAL PULSES: Peripheral pulses 2+ throughout GI: COMMON NORMALS: Normal to inspection, nondistended, normoactive bowel sounds present, Soft to palpation, non-tender, No hepatosplenomegaly present and no masses AUSCULTATION: Yes normoactive bowel sounds PALPATION: Yes Soft to palpation and Yes No hepatosplenomegaly present RECTAL EXAM: deferred Extremity: COMMON NORMALS: no clubbing, cyanosis or edema and no pedal edema Neuro: GILDA COMA SCALE: document GCS findings Gilda coma scale eye opening: Spontaneous [place] coma scale verbal response: Orientated [place] coma scale motor response: Obey commands Amity coma scale total score: 15 COMMON NORMALS: patient oriented x3 SENSORIUM/ORIENTATION: Yes alert, Yes oriented to person, Yes oriented to place and Yes oriented to time MENINGEAL SIGNS: Yes no meningeal signs CRANIAL NERVES: Yes CN normal except as noted OTHER: Bilateral upper limb strength improving. Flexor spasm in upper and lower limbs. Urinary Catheter Management: Simon: Cath Placed During This Visit: yes Reason for Continuing Indwelling Catheter: Accurate Measurement of Urinary Output in Critically Ill Patients Urinary Catheter Date of Insertion: 02/02/22 Urinary Catheter Time of Insertion: 18:00 Data : 02/04/22 04:50 02/04/22 04:50 Micro: Microbiology 02/03/22 12:00 Gram Stain - Final Other Source 02/02/22 18:44 Blood Culture - Preliminary Blood Staphylococcus aureus 02/02/22 18:47 Blood Culture - Preliminary Blood Staphylococcus aureus 02/03/22 12:00 Gram Stain - Final Other Source 02/04/22 05:02 Blood Culture - Preliminary Blood SPECIMEN COLLECTED 02/04/22 04:50 Blood Culture - Preliminary Blood SPECIMEN COLLECTED A&P Assessment and plan (1) Staphylococcus aureus bacteremia: Status: Acute (2) Quadriplegia: Status: Acute (3) Abscess in epidural space of cervical spine: Status: Acute (4) Spinal stenosis in cervical region: Status: Acute Plan Quadriplegia: Most likely secondary to epidural abscess at cervical spine along with discitis at C5/C6. Postop day 1. Continue with dexamethasone 4 mg IV every 6 hourly. We will plan to start to wean within next 24 to 48 hours. Physical therapy, Occupational Therapy. Anticoagulation, pain medication as per surgical team. Staph bacteremia: Repeat blood cultures sent on 02/04. Sensitivities awaited. MRSA swab result pending. For now continue with vancomycin and Zosyn. Plan to keep vancomycin trough over 15. 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 Will need ID consultation. On review of outpatient medicine it seems patient is supposed to be on Suboxone 8/2 mg. On confirming with pharmacy patient has not refilled this medication since October 2021. Hold off on Suboxone for now. Dilaudid 0.5 mg every 6 hourly, continue with baclofen 10 mg 4 times daily, and Flexeril 5 mg every 6 hour as needed. [place] 5 mg tablet every 6 hours as needed. Appreciate neurology recommendations. Code Status :Full code Lovenox for DVT prophylaxis. Famotidine for PUD prophylaxis. If remains hemodynamically stable can plan to transfer to [facility] floor tomorrow. Discharge planning: SNF versus acute rehab given need of aggressive physical therapy for quadriplegia once blood cultures cleared up. Attestations Medical Necessity Statement*: Requires further hospitalization for management of quadriplegia secondary to epidural region, staphylococcal bacteremia Time Spent in Patient Care: Greater than 35 minutes Procedures Arterial Line Size (Gauge): 20 Coding Level of Care Code Acute Copy Holder for [facility] Diagnoses Staphylococcus aureus bacteremia R78.81; B95.61 Quadriplegia G82.50 Abscess in epidural space of cervical spine G06.1 Spinal stenosis in cervical region M48.02
--- NOTE | 2022-02-04 18:37 | PC.NURSE ---
1814 Removed sharp, removed 9ml saline from balloon. Emptied 800 urine
[2022-02-04] MEDS: quetiapine 300 mg Tablet PO (20:29)
[2022-02-05] VITALS (27 sets, daily range): BP systolic 115–156; BP diastolic 69–98; PULSE 48–84; RESP 8–26; TEMP 36.6–37.4; O2SAT 90–97
--- NOTE | 2022-02-05 00:16 | USCV_ITS ---
Transthoracic Echo Jazmine Cancino Age: 41 Gender: F : 1980 Exam Date: 02/05/2022 03:39 Ordering Phys: Gina Mayo MD Technologist: Lemuel Cuevas [place] [facility] [place]: Endocarditis Eval BP: 143 / 89 HR: 60 Rhythm: Sinus Technical Quality: Adequate MEASUREMENTS (Male / Female) Normal Values 2D ECHO LV Diastolic Diameter PLAX 3.5 cm 4.2 - 5.9 / 3.9 - 5.3 cm LV Systolic Diameter PLAX 2.0 cm IVS Diastolic Thickness 1.3 cm 0.6 - 1.0 / 0.6 - 0.9 cm IVS Systolic Thickness 1.9 cm LVPW Diastolic Thickness 1.2 cm 0.6 - 1.0 / 0.6 - 0.9 cm LVPW Systolic Thickness 1.6 cm LVOT Diameter 2.5 cm LV Ejection Fraction 2D Teich 75.4 % LV Ejection Fraction MOD 2C 83.7 % LV Ejection Fraction 2C AL 83.3 % LA Diameter 2.9 cm LA Width 3.8 cm LA Height 5.6 cm RA Width 3.6 cm RA Height 4.2 cm Aorta at Sinotubular Diameter 3.0 cm M-MODE Aortic Annulus Diameter 2.7 cm LA Ao Ratio MM 1.3 MV E Point Septal Separation 0.9 cm DOPPLER AV Peak Velocity 123.2 cm/s LVOT Peak Velocity 82.0 cm/s AV Area Cont Eq vti 3.1 cm squared AV Area Cont Eq pk 3.2 cm squared MV Peak Velocity 82.0 cm/s MV Area PHT 7.1 cm squared Mitral E to A Ratio 2.1 MV E' Velocity 46.5 cm/s Mitral E to MV E' Ratio 7.1 Mitral E to LV E' Lateral Ratio 6.7 Mitral E to LV E' Septal Ratio 7.6 TR Peak Velocity 126.7 cm/s TR Peak Gradient 6.4 mmHg TR Mean Velocity 96.4 cm/s TR Mean Gradient 4.8 mmHg TR Velocity Time Integral 33.5 cm TV Peak E Velocity 71.0 cm/s Right Atrial Pressure 8.0 mmHg Pulmonary Artery Systolic Pressu 14.4 mmHg PV Peak Velocity 92.0 cm/s RV Acceleration Time 0.2 s RV Ejection Time 0.4 s RV AcT/ET 0.5 FINDINGS Left Ventricle Normal left ventricular size and systolic function, EF 77 %. No regional wall motion abnormalities. Right Ventricle The right ventricle is normal in size and function. Right Atrium Possibly of normal size Left Atrium The left atrium is normal in size. Mitral Valve No masses or vegetations noted Aortic Valve No masses or vegetations noted Tricuspid Valve Could not be visualized well Pulmonic Valve Could not be visualized well Pericardium Normal pericardium without effusion. Aorta Normal ascending aorta dimension. CONCLUSIONS Normal left ventricular size and systolic function, EF 77 %. No regional wall motion abnormalities. No masses or vegetations were noted on the mitral or aortic valve The tricuspid and pulmonic valves were not visualized well There is no pericardial effusion. Consider KAY, if clinically indicated, to better evaluate the valves Dr Arely Longoria MD FACC (Electronically Signed) Final Date: 05 February 2022 07:51 S
[2022-02-05] MEDS: ALPRAZolam 0.5 mg Tablet PO ×4 (00:27→23:51)
[2022-02-05] MEDS: ketorolac 30 mg/mL INJ IVP (00:27)
[2022-02-05 01:37] LABS: Vancomycin Trough 14.2 ug/mL (10-15)
[2022-02-05] MEDS: vancomycin 1,000 MG in sodium chloride 0.9% 250 ML 250 MG IV ×2 (02:09→09:17)
[2022-02-05] MEDS: piperacillin-tazobactam 3.375 GM in sodium chloride 0.9% (plus) 50 ML IV ×3 (02:10→18:10)
[2022-02-05 03:52] LABS: Basophils % 0.1 %; Hematocrit 34.5 % (37.0-47.0); Hemoglobin 10.6 g/dL (11.5-15.3); Lymphocytes # 1.6 10^3/uL (0.8-4.8); Lymphocytes % 19.4 %; Mean Corpuscular HGB Conc 30.7 g/dL (30.0-36.0); Mean Corpuscular Hemoglobin 27.2 pg (28.0-34.0); Mean Corpuscular Volume 88.7 fl (81-99); Mean Platelet Volume 8.8 fL (7.4-10.4); Monocytes # 0.7 10^3/uL (0.2-0.9); Monocytes % 8.9 %; Neutrophils # 5.78 10^3/uL (1.8-7.7); Neutrophils % 71.1 %; Nucleated Red Blood Cells % 0 %; Platelet Count 315 10^3/cmm (130-400); Red Blood Count 3.89 10^6/uL (4.1-5.3); Red Cell Distribution Width 14.7 % (12.1-15.1); White Blood Count 8.1 10^3/uL (4.0-10.0)
[2022-02-05 04:16] LABS: Alanine Aminotransferase < 5 U/L (0-33); Albumin Level 2.7 g/dL (3.5-5.2); Alkaline Phosphatase 72 IU/L (35-105); Anion Gap 14.2 (5-19); Aspartate Amino Transferase 7 U/L (0-32); Blood Urea Nitrogen 22 mg/dL (6-20); Calcium 8.1 mg/dL (8.5-10.5); Carbon Dioxide 23 mmol/L (22-29); Chloride 108 mmol/L (98-107); Creatinine Clr Calc Pharmacy 154.2516; Globulin 3.1 g/dL (1.3-4.6); Glucose 132 mg/dL (65-115); Osmolality Calculated 297 mOsm/kg (285-295); Potassium 4.2 mmol/L (3.5-5.1); Sodium 141 mmol/L (136-145); Total Bilirubin 0.2 mg/dL (0.15-1.2); Total Protein 5.8 g/dL (6.6-8.7)
[2022-02-05 04:41] LABS: Rapid Plasma Reagin Syphilis Nonreactive (Nonreactive)
[2022-02-05 04:45] LABS: HIV 1 & 2 Antibody Non-Reactive (Non-Reactiv); HIV 1 & 2 Antigen Non-Reactive (Non-Reactiv)
[2022-02-05] MEDS: enoxaparin 40 mg/0.4 mL Syringe SUBCUT (05:15)
[2022-02-05] MEDS: dexamethasone 4 mg/mL INJ IVP ×3 (05:15→23:52)
[2022-02-05] MEDS: HYDROcodone-acetaminophen 5-325 mg Tablet 1 TAB PO ×4 (05:31→23:52)
--- NOTE | 2022-02-05 06:17 | PC.NURSE ---
Called Dr. Mayo at 0012 in regards to patient urinary retention. Sharp catheter pulled on previous day shift and patient had not voided. Bladder scanned her and she had >950ml. Orders per Dr. Mayo to place another sharp catheter. Called Dr. Maoy at 0528 in regards to the patient's heart rate. Patient has slowly trended to become bradycardic, normal sinus. Patient has had a HR 45-55, blood pressure stable and patient alert and oriented x4. No new orders at this time. If she stays bradycardic in low 40's or below 40, Dr. Mayo said they may need to add on dopamine, but to continue and watch her HR for now. Will pass along to day shift RN in report. Patient alert and oriented throughout the night. Patient on 3LNC, clear diminished breath sounds. 1200ml UOP, no bowel movement. Patient did have quite a bit of pain, managed with prn pain medication. She states her pain is mainly in her posterior neck, upper back, and shoulders. Upper extremities have movement up to her face. Still unable to layaway clerk or move fingers. Patient has done her own PT exercises for her arms in the bed. Unable to move legs still. She states sensation is more intact and not tingling in lower extremities. Pupils equal at a 3 and reactive. No further concerns at time.
--- NOTE | 2022-02-05 07:00 | PM.PN ---
Subjective Subjective: POD 2 Patient is resting comfortably.? Movement of both shoulders has improved but still weak in both hands and unable to move digits.? No motor function of her legs only sensation.? Mild swallowing discomfort.? Denies headaches or shortness of breath or chest pain. Vitals/I&O/Wt Last Vital Signs Temp 98.1 F 02/04/22 22:54 Pulse 53 L 02/05/22 06:00 Resp 21 H 02/05/22 06:00 BP 135/83 02/05/22 06:00 Pulse Ox 96 02/05/22 06:00 02/04/22 02/05/22 02/05/22 22:59 06:59 14:59 Intake Total 920 / 3528.333 300 / 3828.333 Output Total 800 / 800 1200 / 2000 Balance 120 / 2728.333 -900 / 1828.333 Physical Exam Narrative: Patient is alert oriented x3 with a good general appearance.? Good strength with shoulder abduction is 4/5 but weak in hands and no movement of the digits.? Hands arms are warm radial pulses palpable.? Sensory to light touch and reports feeling of cold sensation on her hands.? No motor function of lower extremities but does have sensation to touch down her legs and feet.? Calves are supple pulses are weak but palpable.? Incision is clean and dry Urinary Catheter Management: Simon: Cath Placed During This Visit: yes Reason for Continuing Indwelling Catheter: Acute Urinary Retention or Obstruction Urinary Catheter Date of Insertion: 02/05/22 Urinary Catheter Time of Insertion: 00:25 Data : 02/05/22 03:07 02/05/22 03:07 Micro: Microbiology 02/04/22 05:02 Blood Culture - Preliminary Blood NEGATIVE TO DATE 02/04/22 04:50 Blood Culture - Preliminary Blood NEGATIVE TO DATE 02/03/22 12:00 Gram Stain - Final Other Source Wound Culture - Preliminary Staphylococcus aureus 02/03/22 12:00 Gram Stain - Final Other Source Tissue Culture - Preliminary Staphylococcus aureus 02/03/22 10:00 MRSA Culture - Final Nose 02/02/22 18:44 Blood Culture - Preliminary Blood Staphylococcus aureus 02/02/22 18:47 Blood Culture - Preliminary Blood Staphylococcus aureus A&P Assessment and plan (1) Status post cervical spinal fusion: Continue Elmore J collar. Incentive spirometry for pulmonary toilet. coordinator volunteer services for consultation on placement. Okay from orthopedic standpoint to transfer to the floor when medically stable. Status: Acute (2) Spastic quadriparesis: Status: Acute Attestations Medical Necessity Statement*: defer to medical team Procedures Arterial Line Size (Gauge): 20 Coding Level of Care Code Acute E Mail System Administrator for [facility] Fwd Diagnoses Status post cervical spinal fusion Z98.1 Spastic quadriparesis G82.50
[2022-02-05] MEDS: HYDROmorphone 1 mg/mL INJ 1 mL 0.5 MG IVP ×3 (07:25→20:11)
[2022-02-05] MEDS: docusate sodium 100 mg Capsule PO ×2 (09:15→18:06)
[2022-02-05] MEDS: gabapentin 300 mg Capsule PO ×3 (09:16→20:16)
[2022-02-05] MEDS: baclofen 10 mg Tablet PO ×4 (09:16→20:16)
[2022-02-05] MEDS: famotidine 20 mg Tablet PO ×2 (09:16→18:07)
[2022-02-05] MEDS: aspirin 81 mg EC Tablet PO (09:16)
[2022-02-05] MEDS: amlodipine 5 mg Tablet PO (09:16)
--- NOTE | 2022-02-05 10:00 | PC.CHAP ---
Pastoral Care Encounter/Spiritual Assessment Type of Contact [] Declined burring machine operator visit [] Patient/Family/Request visit [] Outpatient visit [] Follow-up visit [] Physician referral [] Code/Alert [x] Routine visit [] Staff referral [] Actively dying [] Patient sleeping [] Family support [] [] Out of room [] Palliative care [] [] Receiving care in room [] Pre-surgical visit [] Trauma [] Long length of stay [] ICU visit [x] Other: Relational/Emotional Strength [] Patient feels connected with others/family/visitors/staff [] Distress [] Loneliness/isolation [] Abandonment Spirituality of Patient [] Person of Marjorie [] Attends Baptism of their Marjorie [] Believes in Prayer [] Reads Bible or Anabaptism materials [] There are Spiritual issues to be addressed Banking Officer Interventions [x] Prayer [x] Active listening [x] Non-anxious presence []x Spiritual/emotional support [] Crisis/trauma care [] Spiritual counseling [] Bereavement support [] Provided bereavement packet [] Provided Bible/devotional materials [] Provided toy/stuffed animal, coloring book to patient or family member [] Provided Communion [] Anointing/[place] [] Salvation [x] Completed spiritual assessment [] Other: Impact on Illness or Injury [] Angry [] Fearful [] Anxious [] Often cries [] Exhaustion [] Unable to work [] Unable to attend scientologist [] Unable to walk/stand [] Unable to read [] Unable to drive [] Unable to eat/drink [] Unable to sleep [] Unable to be with family [] Patient intubated [] Other: Summary some movement in legs and arms... working at it... Time spent with patient 5 min
[2022-02-05] MEDS: nicotine 14 mg Patch 1 PATCH TRANSDERMA (11:31)
--- NOTE | 2022-02-05 12:54 | P.PN_ITS ---
Subjective Subjective: No acute events overnight. Patient has remained hemodynamically stable and afebrile. Overnight patient retained urine and Simon catheter was placed again. Patient continues to do better with strength in her arms. States she was able to feel urinary retention this time. States she can feel the bedsheet at the base of her backside and at her foot but still not able to move her legs. Still having occasional episode of spasm but better than before. Sat up at the bedside with physical therapy today. Vitals/I&O/Wt Last Vital Signs Temp 98.1 F 02/04/22 22:54 Pulse 84 02/05/22 07:59 Resp 16 02/05/22 07:59 BP 135/83 02/05/22 06:00 Pulse Ox 94 02/05/22 07:59 02/04/22 02/05/22 02/05/22 22:59 06:59 14:59 Intake Total 920 / 3528.333 300 / 3828.333 250 / 250 Output Total 800 / 800 1200 / 2000 Balance 120 / 2728.333 -900 / 1828.333 250 / 250 Physical Exam Narrative: In cervical collar Const: COMMON NORMALS: patient oriented x3 and alert ORIENTATION/CONSCIOUSNESS: Yes oriented to person, Yes oriented to place and Yes oriented to time HENMT: COMMON NORMALS: normocephalic, atraumatic and external ears normal HEAD & SCALP: normocephalic and atraumatic EXTERNAL EAR: Yes external ears normal Eye: GENERAL EYE: appearance normal, both eyes and all related structures Neck/C-Spine: COMMON NORMALS: no meningeal signs Chest: COMMONS NORMALS: normal inspection of the chest and normal palpation of entire chest wall CHEST: Yes Symmetrical chest wall rise Resp: COMMON NORMALS: normal respiratory effort, No retractions, No use of accessory muscles and clear to auscultation bilaterally EFFORT & INSPECTION: Yes symmetric chest movement AUSCULTATION: clear to auscultation bilaterally Cardio: COMMON NORMALS: regular rate, regular rhythm, S1 normal heart sound present, S2 normal heart sound present, No gallops present (Cardio), No murmurs present (Cardio), No rub (Cardio) and Peripheral pulses 2+ throughout RATE: regular rate RHYTHM: regular rhythm HEART SOUNDS: S1 normal heart sound present and S2 normal heart sound present PERIPHERAL PULSES: Peripheral pulses 2+ throughout GI: COMMON NORMALS: Normal to inspection, nondistended, normoactive bowel sounds present, Soft to palpation, non-tender, No hepatosplenomegaly present and no masses AUSCULTATION: Yes normoactive bowel sounds PALPATION: Yes Soft to palpation and Yes No hepatosplenomegaly present RECTAL EXAM: deferred Extremity: COMMON NORMALS: no clubbing, cyanosis or edema and no pedal edema Neuro: GILDA COMA SCALE: document GCS findings Gilda coma scale eye opening: Spontaneous [place] coma scale verbal response: Orientated [place] coma scale motor response: Obey commands Gilda coma scale total score: 15 COMMON NORMALS: patient oriented x3 SENSORIUM/ORIENTATION: Yes alert, Yes oriented to person, Yes oriented to place and Yes oriented to time MENINGEAL SIGNS: Yes no meningeal signs CRANIAL NERVES: Yes CN normal except as noted OTHER: Bilateral upper limb strength improving. Flexor spasm in upper and lower limbs. Urinary Catheter Management: Simon: Cath Placed During This Visit: yes Reason for Continuing Indwelling Catheter: Acute Urinary Retention or Obstruction Urinary Catheter Date of Insertion: 02/05/22 Urinary Catheter Time of Insertion: 00:25 Data : 02/05/22 03:07 02/05/22 03:07 Micro: Microbiology 02/03/22 12:00 Gram Stain - Final Other Source Tissue Culture - Final Staphylococcus aureus 02/02/22 18:44 Blood Culture - Final Blood Staphylococcus aureus 02/02/22 18:47 Blood Culture - Final Blood Staphylococcus aureus 02/03/22 12:00 Gram Stain - Final Other Source Wound Culture - Preliminary Staphylococcus aureus 02/04/22 05:02 Blood Culture - Preliminary Blood NEGATIVE TO DATE 02/04/22 04:50 Blood Culture - Preliminary Blood NEGATIVE TO DATE 02/03/22 10:00 MRSA Culture - Final Nose A&P Assessment and plan (1) Staphylococcus aureus bacteremia: Status: Acute (2) Quadriplegia: Status: Acute (3) Abscess in epidural space of cervical spine: Status: Acute (4) Spinal stenosis in cervical region: Status: Acute Plan Quadriplegia: Secondary to epidural abscess at cervical spine along with discitis at C5/C6. Resolving. Postop day 2. Wean dexamethasone to 4 mg IV every 12 hourly.. Physical therapy, Occupational Therapy. Anticoagulation, pain medication as per surgical team. Staph bacteremia: MSSA. Repeat blood cultures sent on 02/04 so far negative Discontinue vancomycin. Continue with Zosyn. We will consult ID for further recommendations. 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 Will need ID consultation. On review of outpatient medicine it seems patient is supposed to be on Suboxone 8/2 mg. On confirming with pharmacy patient has not refilled this medication since October 2021. Hold off on Suboxone for now. Dilaudid 0.5 mg every 6 hourly, continue with baclofen 10 mg 4 times daily, and Flexeril 5 mg every 6 hour as needed. [place] 5 mg tablet every 6 hours as needed. Appreciate neurology recommendations. Code Status :Full code Lovenox for DVT prophylaxis. Famotidine for PUD prophylaxis. Transfer out of ICU to [facility]. Discharge planning: Patient most likely needs acute spinal rehab for further management. Case management alerted. Attestations Medical Necessity Statement*: Requires further hospitalization for management of MSSA bacteremia, quadriplegia secondary to epidural abscess Time Spent in Patient Care: Greater than 35 minutes Procedures Arterial Line Size (Gauge): 20 Coding Level of Care Code Acute Stepdown Nurse for [facility] Fwd Diagnoses Staphylococcus aureus bacteremia R78.81; B95.61 Quadriplegia G82.50 Abscess in epidural space of cervical spine G06.1 Spinal stenosis in cervical region M48.02
[2022-02-05] MEDS: bisacodyl 5 mg Tablet 10 MG PO (14:09)
--- NOTE | 2022-02-05 18:10 | PC.NURSE ---
MAR other delays related to care of other patients.
--- NOTE | 2022-02-05 19:28 | PM.PN ---
Subjective Subjective: I saw the patient at 8:00 this morning. The increase in quetiapine was successful in allowing her to sleep but she was alert when she woke up this morning. She is comfortable with going to neuro rehab in [place] although it means that she will be away from her 17-year-old high school daughter. She is comfortable that her daughter will be safe here and she will try to be home by high school graduation. Her flexor spasms are improved on baclofen and she is tolerating it without significant sedation. Vitals/I&O/Wt Last Vital Signs Temp 99.3 F 02/05/22 14:00 Pulse 80 02/05/22 16:00 Resp 24 H 02/05/22 14:03 BP 117/70 02/05/22 14:00 Pulse Ox 95 02/05/22 14:03 02/05/22 02/05/22 02/05/22 06:59 14:59 22:59 Intake Total 300 / 3828.333 1000 / 1000 Output Total 1200 / 2000 Balance -900 / 0342.017 0471 / 1000 Physical Exam Narrative: She is awake and alert. She is more open emotionally today. Cranial nerves unremarkable. Motor exam reveals no change in her C6 myotomal level except that she has a little more vigorous strength in deltoids and biceps. She has twitch strength in right triceps. She continues to breathe shallowly. Tone improved. Sensory: She can feel a touch on her legs. Urinary Catheter Management: Simon: Cath Placed During This Visit: yes Reason for Continuing Indwelling Catheter: Acute Urinary Retention or Obstruction Urinary Catheter Date of Insertion: 02/05/22 Urinary Catheter Time of Insertion: 00:25 Data : 02/05/22 03:07 02/05/22 03:07 Other Labs: Wound culture from her abscess is growing Staph aureus and 4 out of 4 bottles were positive for staph aureus sensitive to pretty much everything. Micro: Microbiology 02/03/22 12:00 Gram Stain - Final Other Source Anaerobic Culture - Preliminary Wound Culture - Preliminary Staphylococcus aureus 02/03/22 12:00 Gram Stain - Final Other Source Tissue Culture - Final Staphylococcus aureus 02/02/22 18:44 Blood Culture - Final Blood Staphylococcus aureus 02/02/22 18:47 Blood Culture - Final Blood Staphylococcus aureus 02/04/22 05:02 Blood Culture - Preliminary Blood NEGATIVE TO DATE 02/04/22 04:50 Blood Culture - Preliminary Blood NEGATIVE TO DATE 02/03/22 10:00 MRSA Culture - Final Nose A&P Assessment and plan (1) Spastic quadriparesis: She is still in spinal shock as would be expected. Her neurologic exam is slightly improved, perhaps. I am concerned about her shallow breathing. We talked about this yesterday and she does not think she could tolerate CPAP. She probably ought to have respiratory evaluation. I am going to order inspiration and expiration portable chest x-ray. She is comfortable with inpatient neuro rehab. I will follow her on discharge. Status: Acute (2) Status post cervical spinal fusion: Status: Acute (3) Staphylococcus aureus bacteremia: Status: Acute Attestations Medical Necessity Statement*: Staphylococcal bacteremia and staphylococcal epidural abscess Procedures Arterial Line Size (Gauge): 20 Coding Level of Care Code Acute Government Relations Manager for [facility] Fwd Diagnoses Spastic quadriparesis G82.50 Status post cervical spinal fusion Z98.1 Staphylococcus aureus bacteremia R78.81; B95.61
--- NOTE | 2022-02-05 19:31 | XRR_ITS ---
PROCEDURE INFORMATION: Exam: XR Chest Exam date and time: 02/05/2022 7:31 PM Age: 41 years old Clinical indication: Cough; Additional info: Cough, please do inspiration and expiration views, portable upright TECHNIQUE: Imaging protocol: XR of the chest. Views: 1 view. COMPARISON: CR (CHEST, ) 02/02/2022 2:15 PM FINDINGS: Lungs: Left lower lobe atelectasis versus minimal infiltrate. Pleural spaces: Unremarkable. No pleural effusion. No pneumothorax. Heart/Mediastinum: Unremarkable. No cardiomegaly. Bones/joints: Unremarkable. XR/XR chest 1V portable [id number] IMPRESSION: Left lower lobe atelectasis versus minimal infiltrate.
[2022-02-05] MEDS: quetiapine 300 mg Tablet PO (20:16)
--- NOTE | 2022-02-05 20:22 | PC.NURSE ---
Shift Note: Pt rested in bed. Cervical in place, it was removed for her comfort a few minutes 2-3 times this shift. Pt instructed not to turn her head, shake her head yes/no, etc. She sat in side of bed with PT. She recevied a bath today. She stated she could feel it over numerous body areas. She is still unable to move her legs but has sensations. Her arms are extremely weak with some elbow and fewer shoulder movement. She was unable to move her fingers this shift. She simeon a very weak cough, and at time struggles to get phlegm out. She did not eat very well except for breakfast. Frequent safety and comfort rounds continue. Orders and/or nursing care completed as indicated. Patient monitored for response to intervention and treatment(s). Education provided includes Ativan, Baclofen and dilaudid, precautions for her neck, aspiration precautions. 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 Will continue to monitor.
[2022-02-06] VITALS (27 sets, daily range): BP systolic 118–156; BP diastolic 66–95; PULSE 50–97; RESP 11–23; TEMP 36.6–37.1; O2SAT 88–97
[2022-02-06] MEDS: HYDROmorphone 1 mg/mL INJ 1 mL 0.5 MG IVP ×2 (02:54→08:57)
[2022-02-06 05:05] LABS: Basophils % 0.1 %; Hematocrit 34.4 % (37.0-47.0); Lymphocytes # 1.9 10^3/uL (0.8-4.8); Lymphocytes % 23.4 %; Mean Corpuscular Volume 87.5 fl (81-99); Mean Platelet Volume 8.6 fL (7.4-10.4); Monocytes # 0.6 10^3/uL (0.2-0.9); Neutrophils # 5.68 10^3/uL (1.8-7.7); Neutrophils % 68.8 %; Nucleated Red Blood Cells % 0 %; Platelet Count 315 10^3/cmm (130-400); Red Blood Count 3.93 10^6/uL (4.1-5.3); Red Cell Distribution Width 14.5 % (12.1-15.1); White Blood Count 8.3 10^3/uL (4.0-10.0)
[2022-02-06 05:27] LABS: Alanine Aminotransferase 13 U/L (0-33); Albumin Level 2.8 g/dL (3.5-5.2); Alkaline Phosphatase 66 IU/L (35-105); Anion Gap 14.4 (5-19); Aspartate Amino Transferase 13 U/L (0-32); Blood Urea Nitrogen 20 mg/dL (6-20); Calcium 8.7 mg/dL (8.5-10.5); Carbon Dioxide 24 mmol/L (22-29); Chloride 107 mmol/L (98-107); Creatinine Clr Calc Pharmacy 154.2516; Globulin 3.1 g/dL (1.3-4.6); Glucose 121 mg/dL (65-115); Osmolality Calculated 296 mOsm/kg (285-295); Potassium 4.4 mmol/L (3.5-5.1); Sodium 141 mmol/L (136-145); Total Bilirubin 0.2 mg/dL (0.15-1.2); Total Protein 5.9 g/dL (6.6-8.7)
--- NOTE | 2022-02-06 05:58 | PM.CONSULT ---
Providers/Reason For Consult Consulting Physician/Specialty*: Gina Mayo MD/Infectious Disease Reason for Consult*: MSSA bacteremia, epidural abscess Requesting Physician: Dr. Logan Meza MD Attending Physician: Logan Meza MD Primary Care Provider: Devika Garcia HIGH SCHOOL COUNSELOR-C History of Present Illness History of Present Illness Jazmine Cancino is a 41 year old female with PMH IVDU who was admitted on February 02, 2022 after presenting here with acute onset of bilateral upper and lower extremity weakness. She had started experiencing neck pain and stiffness 2 days prior to presentation at [facility], thought she had a neck spasm at the time and was taking cyclobenzaprine. Neck stiffness continued to get worse and then eventually she was not able to walk and developed significant weakness in bilateral upper extremities. She sustained a fall at home and had a head injury. MRI of the cervical spine showed discitis at the C5-C6 level with extension into the anterior epidural space throughout the cervical spine suspicious for an epidural abscess. Additionally noted was severe spinal stenosis and impingement of the cervical cord at the level of C5-C6 with a long segment of syrinx proximal to the impingement and extending caudally to the level of T2-T3. She underwent discectomy and instrumentation at levels extending from C2-C6 on February 03, 2022. Purulence was encountered intraoperatively at level C5-C6 per op note. 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 Blood culture from admission on February 02, 2022 resulted with MSSA, as stated operative cultures from February 03, 2022. Blood culture from February 04, 2022 is currently negative to date. Patient has been on treatment with Zosyn and vancomycin since admission. Denies current IVDU however reports that she had a brief history od drug use after her mother few months ago. Followed up at suboxone clinic, but appears hasnt needed to fill prescription since Oct 2021. Review of Systems General: Reports: 10 or more systems reviewed and unremarkable except in HPI and below Const: Denies: fever(s), chills or body aches Eyes: Denies: change in vision, blurry vision or photophobia ENMT: Reports: hoarseness; Denies: throat pain, enlarged tonsils, odynophagia or nasal congestion Card: Denies: chest pain, palpitations, irregular heart rhythm, edema, swelling of feet/ankles, lightheadedness, pre-syncope, dyspnea on exertion or orthopnea Resp: Denies: dyspnea, productive cough, non-productive cough, wheezing, stridor, pain on inspiration, change in phlegm color, hemoptysis or chest congestion GI: Denies: abdominal pain, nausea, vomiting, hematemesis, coffee ground emesis, dysphagia, heartburn, diarrhea, constipation, GI cramping, change in stool character, hematochezia or melena : Denies: flank pain, difficulty voiding, dysuria, urinary frequency, urinary urgency, urinary hesitancy or hematuria Musc: Denies: neck pain, back pain, extremity pain, joint swelling, joint warmth or deformity Neuro: Reports: numbness in extremities, weakness in extremities, sensory changes, difficulty walking and frequent falls; Denies: headache(s), dizziness, vertigo, behavioral changes, Slurred speech present or seizure-like activity Psych: Denies: anxiety, depression, suicidal ideation or homicidal ideation Endo: Denies: polyuria, polydipsia, tired all the time, cold intolerance or hot flashes Teo/Lymph: Denies: easy bruising or easy bleeding Medications/Allergies Home Medications Medication Instructions Recorded Confirmed Last Taken Type aspirin 81 mg tablet,delayed 81 mg PO DAILY 02/02/22 02/02/22 02/01/22 History release atenolol 50 mg tablet 50 mg PO DAILY PRN 02/02/22 02/02/22 Unknown History buprenorphine 8 mg-naloxone 2 mg 1 film SUBLINGUAL TID 02/02/22 02/02/22 02/01/22 History sublingual film (Suboxone) cyclobenzaprine 10 mg tablet 10 mg PO TID PRN 02/02/22 02/02/22 Unknown History gabapentin 300 mg capsule 300 mg PO TID 02/02/22 02/02/22 02/01/22 History ibuprofen 600 mg tablet 600 mg PO QID PRN 02/02/22 02/02/22 Unknown History naloxone 4 mg/actuation nasal See Rx Instructions .ROUTE 02/02/22 02/02/22 Unknown History spray (Narcan) .COMPLEX PRN quetiapine 200 mg tablet 200 mg PO BEDTIME 02/02/22 02/02/22 02/01/22 History Allergies Allergy/AdvReac Type Severity Reaction Status Date / Time Sulfa (Sulfonamide Allergy Unknown Verified 01/17/20 15:16 Antibiotics) Current Medications Generic Name Dose Route Start Last Admin Trade Name Freq PRN Reason Stop Dose Admin Hydrocodone Bitart/Acetaminophen 1 tab 02/04/22 10:40 02/05/22 23:52 Hydrocodone-Acetaminophen 5-325 Mg Tablet PO 1 tab Q4H PRN Administration MODERATE TO SEVERE PAIN Alprazolam 0.5 mg 02/04/22 10:38 02/05/22 23:51 Alprazolam 0.5 Mg Tablet PO 0.5 mg TID PRN Administration ANXIETY Amlodipine Besylate 5 mg 02/04/22 10:40 02/05/22 09:16 Amlodipine 5 Mg Tablet PO 5 mg DAILY DORA Administration Aspirin 81 mg 02/03/22 09:00 02/05/22 09:16 Aspirin 81 Mg Ec Tablet PO 81 mg DAILY DORA Administration Baclofen 10 mg 02/04/22 09:00 02/05/22 20:16 Baclofen 10 Mg Tablet PO 10 mg QID DORA Administration Bisacodyl 10 mg 02/02/22 17:16 02/05/22 14:09 Bisacodyl 5 Mg Tablet PO 10 mg DAILY PRN Administration Constipation (see protocol) Protocol Dexamethasone 4 mg 02/05/22 23:00 02/05/22 23:52 Dexamethasone 4 Mg/Ml Inj IVP 4 mg Q12H DORA Administration Docusate Sodium 100 mg 02/03/22 18:00 02/05/22 18:06 Docusate Sodium 100 Mg Capsule PO 100 mg BID DORA Administration Enoxaparin Sodium 40 mg 02/04/22 06:00 02/05/22 05:15 Enoxaparin 40 Mg/0.4 Ml Syringe SUBCUT 40 mg Q24H DORA Administration Famotidine 20 mg 02/03/22 18:00 02/05/22 18:07 Famotidine 20 Mg Tablet PO 20 mg BID DORA Administration Gabapentin 300 mg 02/03/22 15:00 02/05/22 20:16 Gabapentin 300 Mg Capsule PO 300 mg TID DORA Administration Hydromorphone HCl 0.5 mg 02/04/22 10:40 02/06/22 02:54 Hydromorphone 1 Mg/Ml Inj 1 Ml IVP 0.5 mg Q6H PRN Administration SEVERE PAIN USE ORAL 1ST Cefazolin Sodium 2,000 mg/ 60 mls @ 100 mls/hr 02/06/22 02:00 02/06/22 02:54 Sodium Chloride IV 100 mls/hr Q8H DORA Administration Nicotine 1 patch 02/05/22 11:20 02/05/22 11:31 Nicotine 14 Mg Patch TRANSDERMA 1 patch DAILY DORA Administration Quetiapine Fumarate 300 mg 02/04/22 21:00 02/05/22 20:16 Quetiapine 300 Mg Tablet PO 300 mg BEDTIME DORA Administration PFSH Acute PFSH: Medical History Encounter for chronic pain management IV drug user Lesion of ulnar nerve, left upper limb Family History Denies family history of Cancer Social History Smoking and tobacco status: current every day smoker Current occupation: Patient has no steps into her apartment however several steps up to bedroom Female Reproductive History: Date of last menstrual period: 09/30/21 Vitals/I&O/Wt Last Vital Signs Temp 98.4 F 02/06/22 04:00 Pulse 50 L 02/06/22 02:00 Resp 21 H 02/06/22 02:54 BP 131/85 02/06/22 00:00 Pulse Ox 94 02/06/22 02:00 02/05/22 02/05/22 02/06/22 14:59 22:59 06:59 Intake Total 1000 / 1000 400 / 1400 Output Total 1100 / 1100 Balance 1000 / 1000 -700 / 300 Physical Exam Narrative: GEN: Awake, alert and oriented, no acute distress CVS: S1S2 N RS: CTA B/L Abd: Soft, nt/nd , bs+ 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 Moves B/L upper extremities. Unable to move lower extremities Urinary Catheter Management: Simon: Cath Placed During This Visit: yes Reason for Continuing Indwelling Catheter: Acute Urinary Retention or Obstruction Urinary Catheter Date of Insertion: 02/05/22 Urinary Catheter Time of Insertion: 00:25 Data : 02/06/22 04:38 02/06/22 04:38 Other Labs: MR/MR thoracic spin wo con* [id number] IMPRESSION: Cervical cord syrinx noted on concurrent MRI extends into the thoracic cord to the level of T4. Minimal central cord fluid/syrinx seen more caudally within the visualized thoracolumbar cord. No signs of discitis/osteomyelitis, severe spinal stenosis, or cord impingement in the thoracic spine. MR/MR cervical spin wo con* [id number] IMPRESSION: 1. Findings suspicious for discitis at C5-C6 with localized extension/lobulated thickening of the anterior epidural space throughout the cervical spine suspicious for epidural abscess. 2. There is severe spinal stenosis and impingement the cervical cord at the level of C5-C6 with a long segment of syrinx proximal to the impingement as well as caudally extending to the level of T2-T3. MR/MR head wo con* [id number] IMPRESSION: No acute findings. XR/XR chest 1V portable [id number] IMPRESSION: No acute findings. ? Micro: Microbiology 02/03/22 12:00 Gram Stain - Final Other Source Anaerobic Culture - Preliminary Wound Culture - Preliminary Staphylococcus aureus S aureus M.I.C. RX --------- ------ * Amoxicillin/Clavulanate <=4/2 S * Ampicillin >8 R * Ampicillin/Sulbactam <=8/4 S * Ceftriaxone <=8 S * Ciprofloxacin <=1 S * Clindamycin <=0.5 S * Erythromycin <=0.5 S * Gentamicin <=4 S * Levofloxacin <=1 S * Linezolid 4 S * Oxacillin 1 S * Penicillin >8 R * Rifampin <=1 S * Tetracycline <=4 S * Trimethoprim/Sulfamethoxazole <=0.5/9.5 S Vancomycin 2 S Daptomycin 1 S 02/03/22 12:00 Gram Stain - Final Other Source Tissue Culture - Final Staphylococcus aureus 02/02/22 18:44 Blood Culture - Final Blood Staphylococcus aureus 02/02/22 18:47 Blood Culture - Final Blood Staphylococcus aureus S aureus M.I.C. RX --------- ------ * Amoxicillin/Clavulanate <=4/2 S * Ampicillin >8 R * Ampicillin/Sulbactam <=8/4 S * Ceftriaxone <=8 S * Ciprofloxacin <=1 S * Clindamycin <=0.5 S * Erythromycin <=0.5 S * Gentamicin <=4 S * Levofloxacin <=1 S * Linezolid 4 S * Oxacillin 0.5 S * Penicillin >8 R * Rifampin <=1 S * Tetracycline <=4 S * Trimethoprim/Sulfamethoxazole <=0.5/9.5 S Vancomycin 2 S Daptomycin 1 S 02/04/22 05:02 Blood Culture - Preliminary Blood NEGATIVE TO DATE 02/04/22 04:50 Blood Culture - Preliminary Blood NEGATIVE TO DATE A&P Assessment and plan (1) Spastic quadriparesis: Status: Acute (2) Abscess in epidural space of cervical spine: Status: Acute (3) Staphylococcus aureus bacteremia: MSSA Status: Acute Plan 41y/o lady with PMH as noted above presenting with spastic quadripresis and found to have C spine discitis and epidural abscess. Blood cx with MSSA on 02/02, thus far clear from 02/04 OR cx from epidural abscess on 02/03 with MSSA Primary source may be related to h/o IVDU few months ago around stressor life event, denies current IVDU. PLAN: Stop zosyn, change to cefazolin 2g iv q8h for organism directed therapy for MSSA. PICC line once blood cx negative for at least 72 hrs. check TTE to evaluate for endocarditis. total duration of rx: At least 8 weeks of iv cefazolin (02/04-04/01). Thereafter, repeat MRI to ensure improving changes in MRI and clinically. Then planned transition to oral Cefadroxil for additional 4 weeks assuming MRI changes improving. (total treatment 3 months). Will need repeat MRI imaging prior to transition to po abx. Chronic suppression to be considered at end of treatment course depending on clinical recovery and repeat imaging. Patient will need close Infectious disease follow up at discharge for above abx decisions. Unfortunately I will be away until May 2022 and not available for outpatient drug monitoring or follow ups until then. Please arrange for ID follow up close to patient's discharge location. Likely dispo will be acute rehab vs SNF. Recommend screening for hep B, hep C, RPR and HIV additionally. Consult Attestations Medical Necessity Statement: per admitting team Procedures Arterial Line Size (Gauge): 20 Coding Level of Care Code Acute Brake Operator for Chg Fwd Diagnoses Spastic quadriparesis G82.50 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
[2022-02-06] MEDS: enoxaparin 40 mg/0.4 mL Syringe SUBCUT (06:27)
[2022-02-06] MEDS: HYDROcodone-acetaminophen 5-325 mg Tablet 1 TAB PO ×3 (07:04→17:24)
--- NOTE | 2022-02-06 08:06 | P.PN_ITS ---
Documented by User: Juan Jose Tate PA-C 02/06/22 08:13 Subjective Subjective: POD 3 Patient is resting comfortably.? Movement of both shoulders has improved but still weak in both hands and unable to move digits.? No motor function of her legs only sensation.? Mild swallowing discomfort.? Denies headaches or shortness of breath or chest pain. Vitals/I&O/Wt Last Vital Signs Temp 98.5 F 02/06/22 06:00 Pulse 50 L 02/06/22 06:00 Resp 21 H 02/06/22 02:54 BP 131/85 02/06/22 00:00 Pulse Ox 94 02/06/22 02:00 02/05/22 02/06/22 02/06/22 22:59 06:59 14:59 Intake Total 400 / 1400 120 / 1520 Output Total 1100 / 1100 400 / 1500 Balance -700 / 300 -280 / 20 Physical Exam Narrative: Patient is alert oriented x3 with a good general appearance.? Good strength with shoulder abduction is 4/5 but weak in hands and no movement of the digits.? Hands arms are warm radial pulses palpable.? Sensory to light touch and reports feeling of cold sensation on her hands.? No motor function of lower extremities but does have sensation to cold touch down her legs and feet.? Calves are supple pulses are weak but palpable.? Incision is clean and dry Hemovac drain present. Urinary Catheter Management: Simon: Cath Placed During This Visit: yes Reason for Continuing Indwelling Catheter: Acute Urinary Retention or Obstruction Urinary Catheter Date of Insertion: 02/05/22 Urinary Catheter Time of Insertion: 00:25 Data : 02/06/22 04:38 02/06/22 04:38 Micro: Microbiology 02/03/22 12:00 Gram Stain - Final Other Source Anaerobic Culture - Preliminary Wound Culture - Preliminary Staphylococcus aureus 02/03/22 12:00 Gram Stain - Final Other Source Tissue Culture - Final Staphylococcus aureus 02/02/22 18:44 Blood Culture - Final Blood Staphylococcus aureus 02/02/22 18:47 Blood Culture - Final Blood Staphylococcus aureus 02/04/22 05:02 Blood Culture - Preliminary Blood NEGATIVE TO DATE 02/04/22 04:50 Blood Culture - Preliminary Blood NEGATIVE TO DATE A&P Assessment and plan (1) Spastic quadriparesis: Continue to logroll in position to prevent ulcers. We will place her in AFO/Mike boots to keep her ankles at neutral. Continue to work with incentive spirometry for pulmonary toilet. health services information specialist for consultation and placement. Dr. Mathew rounded and evaluated the patient as well and agrees with above-stated plan. Status: Acute (2) Status post cervical spinal fusion: Status: Acute Attestations Medical Necessity Statement*: defer to medical team Procedures Arterial Line Size (Gauge): 20 Coding Level of Care Code Acute Service And Repair Supervisor for Chg Fwd Diagnoses Spastic quadriparesis G82.50 Status post cervical spinal fusion Z98.1 Documented by User: Aj Mathew DO 02/06/22 10:06 Physical Exam Urinary Catheter Management: Simon: Cath Placed During This Visit: yes Data : 02/06/22 04:38 02/06/22 04:38 A&P Assessment and plan (1) Spastic quadriparesis: Continue to logroll in position to prevent ulcers. We will place her in AFO/Mike boots to keep her ankles at neutral. Continue to work with incenti ve spirometry for pulmonary toilet. health services information specialist for consultation and placement. Dr. Mathew rounded and evaluated the patient as well and agrees with above-stated plan. Pt seen agree with above Aj Mathew DO Status: Acute (2) Status post cervical spinal fusion: Status: Acute Coding Level of Care Code Acute Service And Repair Supervisor for Chg Fwd Diagnoses Spastic quadriparesis G82.50 Status post cervical spinal fusion Z98.1
[2022-02-06] MEDS: nicotine 14 mg Patch 1 PATCH TRANSDERMA (08:55)
[2022-02-06] MEDS: amlodipine 5 mg Tablet PO (08:56)
[2022-02-06] MEDS: baclofen 10 mg Tablet 20 MG PO ×4 (08:56→20:07)
[2022-02-06] MEDS: famotidine 20 mg Tablet PO ×2 (08:56→17:19)
[2022-02-06] MEDS: gabapentin 400 mg Capsule PO ×4 (08:56→20:07)
[2022-02-06] MEDS: aspirin 81 mg EC Tablet PO (08:56)
[2022-02-06] MEDS: docusate sodium 100 mg Capsule PO (08:57)
[2022-02-06] MEDS: magnesium citrate Btl 296 mL PO (08:57)
[2022-02-06] MEDS: ALPRAZolam 0.5 mg Tablet PO ×2 (10:43→17:59)
--- NOTE | 2022-02-06 11:39 | PC.CHAP ---
Pastoral Care Encounter/Spiritual Assessment Type of Contact [] Declined clam shucking machine tender visit [] Patient/Family/Request visit [] Outpatient visit [] Follow-up visit [] Physician referral [] Code/Alert [x] Routine visit [] Staff referral [] Actively dying [] Patient sleeping [] Family support [] [] Out of room [] Palliative care [] [] Receiving care in room [] Pre-surgical visit [] Trauma [] Long length of stay [x] ICU visit [] Other: Relational/Emotional Strength [] Patient feels connected with others/family/visitors/staff [] Distress [] Loneliness/isolation [] Abandonment Spirituality of Patient [] Person of Marjorie [] Attends Anabaptist of their Marjorie [] Believes in Prayer [] Reads Bible or Yazdanism materials [] There are Spiritual issues to be addressed Community Health Advocate Interventions [x] Prayer [x] Active listening [x] Non-anxious presence [x] Spiritual/emotional support [] Crisis/trauma care [] Spiritual counseling [] Bereavement support [] Provided bereavement packet [] Provided Bible/devotional materials [] Provided toy/stuffed animal, coloring book to patient or family member [] Provided Communion [] Anointing/[place] [] Salvation [x] Completed spiritual assessment [] Other: Impact on Illness or Injury [] Angry [] Fearful [] Anxious [] Often cries [] Exhaustion [] Unable to work [] Unable to attend sabianism [] Unable to walk/stand [] Unable to read [] Unable to drive [] Unable to eat/drink [] Unable to sleep [] Unable to be with family [] Patient intubated [] Other: Summary patient still working on movement in arms and legs.... Time spent with patient 10 min
--- NOTE | 2022-02-06 12:50 | PM.PN ---
Subjective Subjective: No acute events overnight. Patient has remained hemodynamically stable and afebrile. On examination working with occupational therapy. Able to move her shoulders and forearms. Trying to regain more strength in her wrist. Have sensation down her lower limbs but still does not have motor capacity. Vitals/I&O/Wt Last Vital Signs Temp 98.5 F 02/06/22 10:00 Pulse 50 L 02/06/22 10:00 Resp 21 H 02/06/22 02:54 BP 131/85 02/06/22 00:00 Pulse Ox 94 02/06/22 02:00 02/05/22 02/06/22 02/06/22 22:59 06:59 14:59 Intake Total 400 / 1400 120 / 1520 200 / 200 Output Total 1100 / 1100 400 / 1500 Balance -700 / 300 -280 / 20 200 / 200 Physical Exam Narrative: In cervical collar Const: COMMON NORMALS: patient oriented x3 and alert ORIENTATION/CONSCIOUSNESS: Yes oriented to person, Yes oriented to place and Yes oriented to time HENMT: COMMON NORMALS: normocephalic, atraumatic and external ears normal HEAD & SCALP: normocephalic and atraumatic EXTERNAL EAR: Yes external ears normal Eye: GENERAL EYE: appearance normal, both eyes and all related structures Neck/C-Spine: COMMON NORMALS: no meningeal signs Chest: COMMONS NORMALS: normal inspection of the chest and normal palpation of entire chest wall CHEST: Yes Symmetrical chest wall rise Resp: COMMON NORMALS: normal respiratory effort, No retractions, No use of accessory muscles and clear to auscultation bilaterally EFFORT & INSPECTION: Yes symmetric chest movement AUSCULTATION: clear to auscultation bilaterally Cardio: COMMON NORMALS: regular rate, regular rhythm, S1 normal heart sound present, S2 normal heart sound present, No gallops present (Cardio), No murmurs present (Cardio), No rub (Cardio) and Peripheral pulses 2+ throughout RATE: regular rate RHYTHM: regular rhythm HEART SOUNDS: S1 normal heart sound present and S2 normal heart sound present PERIPHERAL PULSES: Peripheral pulses 2+ throughout GI: COMMON NORMALS: Normal to inspection, nondistended, normoactive bowel sounds present, Soft to palpation, non-tender, No hepatosplenomegaly present and no masses AUSCULTATION: Yes normoactive bowel sounds PALPATION: Yes Soft to palpation and Yes No hepatosplenomegaly present RECTAL EXAM: deferred Extremity: COMMON NORMALS: no clubbing, cyanosis or edema and no pedal edema Neuro: GILDA COMA SCALE: document GCS findings [place] coma scale eye opening: Spontaneous Gilda coma scale verbal response: Orientated [place] coma scale motor response: Obey commands [place] coma scale total score: 15 COMMON NORMALS: patient oriented x3 SENSORIUM/ORIENTATION: Yes alert, Yes oriented to person, Yes oriented to place and Yes oriented to time MENINGEAL SIGNS: Yes no meningeal signs CRANIAL NERVES: Yes CN normal except as noted OTHER: Bilateral upper limb strength improving. Flexor spasm in upper and lower limbs. Sensations intact in lower limbs. Urinary Catheter Management: Simon: Cath Placed During This Visit: yes Reason for Continuing Indwelling Catheter: Acute Urinary Retention or Obstruction Urinary Catheter Date of Insertion: 02/05/22 Urinary Catheter Time of Insertion: 00:25 Data : 02/06/22 04:38 02/06/22 04:38 Micro: Microbiology 02/03/22 12:00 Gram Stain - Final Other Source Anaerobic Culture - Preliminary Wound Culture - Final Staphylococcus aureus 02/03/22 12:00 Gram Stain - Final Other Source Tissue Culture - Final Staphylococcus aureus 02/02/22 18:44 Blood Culture - Final Blood Staphylococcus aureus 02/02/22 18:47 Blood Culture - Final Blood Staphylococcus aureus A&P Assessment and plan (1) Staphylococcus aureus bacteremia: Status: Acute (2) Quadriplegia: Status: Acute (3) Abscess in epidural space of cervical spine: Status: Acute (4) Spinal stenosis in cervical region: Status: Acute Plan Quadriplegia: Secondary to epidural abscess at cervical spine along with discitis at C5/C6. Resolving. Postop day 3. Wean dexamethasone further to 4 mg daily. Will plan to stop within next 48 hours. Physical therapy, Occupational Therapy. Anticoagulation, pain medication as per surgical team. Increased dose of baclofen to 20 mg 4 times daily, continue with Flexeril as needed for muscle spasms. Staph bacteremia: MSSA. Repeat blood cultures sent on 02/04 so far negative Appreciate ID recommendations. RPR negative, echocardiogram negative for infective endocarditis. Antibiotics changed to cefazolin. Continue with 2 g every 8 hourly daily for next 6 weeks. Repeat blood cultures so far negative. Once they remain negative for 72 hours we will plan for PICC line. 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 Appreciate neurology, surgery, ID recommendations On review of outpatient medicine it seems patient is supposed to be on Suboxone 8/2 mg. On confirming with pharmacy patient has not refilled this medication since October 2021. Hold off on Suboxone for now. Stop IV Dilaudid. Continue with [place] every 4 as needed. Code Status :Full code Lovenox for DVT prophylaxis. Famotidine for PUD prophylaxis. Transfer out of ICU to [facility]. Discharge planning: Patient most likely needs acute spinal rehab for further management. Case management alerted. Attestations Medical Necessity Statement*: Requires further hospitalization for management of MSSA bacteremia secondary to epidural abscess leading to quadriplegia while patient is undergoing extensive physical therapy to regain motor activity in upper and lower limb. Safe discharge planning is awaited. Time Spent in Patient Care: Greater than 35 minutes Procedures Arterial Line Size (Gauge): 20 Coding Level of Care Code Acute Lead Manufacturing Engineering Tech for [facility] Fwd Diagnoses Staphylococcus aureus bacteremia R78.81; B95.61 Quadriplegia G82.50 Abscess in epidural space of cervical spine G06.1 Spinal stenosis in cervical region M48.02
--- NOTE | 2022-02-06 18:01 | NUR.SHIFT ---
Shift Note Frequent safety and comfort rounds continue. Orders and/or nursing care completed as indicated. Patient monitored for response to laxatives , had 2 large loose bms today . Education provided includes frequent turn Patient understands at this time Will continue to monitor.
--- NOTE | 2022-02-06 18:59 | P.PN_ITS ---
Subjective Subjective: She slept well. She is having pain in her neck. She has pain down the right triceps and C7. Vitals/I&O/Wt Last Vital Signs Temp 98 F 02/06/22 16:00 Pulse 72 02/06/22 18:00 Resp 16 02/06/22 18:00 BP 139/92 02/06/22 18:00 Pulse Ox 90 02/06/22 18:00 02/06/22 02/06/22 02/06/22 06:59 14:59 22:59 Intake Total 120 / 1520 260 / 260 300 / 560 Output Total 400 / 1500 1999 Balance -280 / 20 260 / 260 -1700 / -1440 Physical Exam Narrative: Upper extremities seem a little stronger. No improvement in trace strength of right triceps and legs remain plegic. Tone improved. 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 She still complaining of a lot of pain and we need to get her off of intravenous opioids and reduce her oral opioids as well. Increase gabapentin to 400 mg 4 times daily and increase baclofen to 20 mg. I noticed on exam today that she is taking deeper breaths and I think that is the most positive sign on her neurologic exam today. Status: Acute (2) Status post cervical spinal fusion: Status: Acute (3) Abscess in epidural space of cervical spine: Status: Acute Attestations Medical Necessity Statement*: Cervical epidural abscess with quadriplegia. She is still on IV antibiotics. She is still on IV opioids but we will taper and discontinue those. Adjust her medications. 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
--- NOTE | 2022-02-06 19:54 | PC.NURSE ---
Pt able to raise bilateral arms above shoulder level. Pt barely able to move thumb on left hand, but otherwise unable to move fingers. Pt reports that she is unable to move bilateral legs or hips. She is able to squeeze her butt cheeks. Pt unable to move head or neck. Pt has rash of raised pustules on chest and fine red, unraised rash on face, arms, and legs. Pt reports that the rash has been present since yesterday morning. No rash present on abdomen. Back not visualized at this time.
[2022-02-06] MEDS: quetiapine 300 mg Tablet PO (20:07)
--- NOTE | 2022-02-06 20:17 | PC.NURSE ---
Braces reapplied to bilateral wrists.
--- NOTE | 2022-02-06 20:28 | PC.NURSE ---
No rash observed on pt's back or buttocks.
[2022-02-06] MEDS: cyclobenzaprine 10 mg Tablet 5 MG PO (20:32)
--- NOTE | 2022-02-06 21:13 | PC.NURSE ---
Oxygen increased to 3L due to sats 86-87% while sleeping.
[2022-02-06] MEDS: ketorolac 30 mg/mL INJ 15 MG IVP (21:18)
--- NOTE | 2022-02-06 21:27 | PC.NURSE ---
Oxygen again increased due to saturation on 86% on 3 L. Mild clubbing of fingernails noted. Pt encouraged to deep breathe and cough.
[2022-02-06] MEDS: HYDROcodone-acetaminophen 5-325 mg Tablet PO (21:55)
--- NOTE | 2022-02-06 22:07 | PC.NURSE ---
Pt's movement of extremities remains unchanged. Pt crying loudly due to pain. Pt repositioned with assistance of 2. Emotional support provided.
[2022-02-07] VITALS (40 sets, daily range): BP systolic 97–148; BP diastolic 57–88; PULSE 50–82; RESP 10–30; TEMP 36.4–36.9; O2SAT 87–99
--- NOTE | 2022-02-07 00:20 | PC.NURSE ---
Pt resting quietly in bed with eyes closed.
[2022-02-07] MEDS: HYDROcodone-acetaminophen 5-325 mg Tablet PO ×2 (03:43→10:50)
[2022-02-07] MEDS: ALPRAZolam 0.5 mg Tablet PO (04:57)
[2022-02-07] MEDS: enoxaparin 40 mg/0.4 mL Syringe SUBCUT (06:06)
[2022-02-07] MEDS: aspirin 81 mg EC Tablet PO (08:00)
[2022-02-07] MEDS: baclofen 10 mg Tablet 20 MG PO ×4 (08:00→21:03)
[2022-02-07] MEDS: amlodipine 5 mg Tablet PO (08:00)
[2022-02-07] MEDS: acetaminophen 325 mg Tablet 650 MG PO (08:00)
[2022-02-07] MEDS: gabapentin 400 mg Capsule PO ×4 (08:00→21:03)
[2022-02-07] MEDS: dexamethasone 4 mg/mL INJ IVP (08:00)
[2022-02-07] MEDS: famotidine 20 mg Tablet PO ×2 (08:00→17:22)
[2022-02-07] MEDS: docusate sodium 100 mg Capsule PO ×2 (08:00→17:22)
[2022-02-07] MEDS: nicotine 14 mg Patch 1 PATCH TRANSDERMA (08:01)
--- NOTE | 2022-02-07 09:51 | P.PN_ITS ---
Subjective Subjective: Patient's in the ICU. At this point has slight improvement of her hand she stated. She still has sensation in her legs however no movement. Vitals/I&O/Wt Last Vital Signs Temp 97.7 F 02/07/22 04:00 Pulse 54 L 02/07/22 06:30 Resp 14 02/07/22 06:30 BP 146/87 02/07/22 06:30 Pulse Ox 96 02/07/22 06:30 02/06/22 02/07/22 02/07/22 22:59 06:59 14:59 Intake Total 900 / 1160 300 / 1460 120 / 120 Output Total 2000 / 1999 2000 / 4000 Balance -1100 / -840 -1700 / -2540 120 / 120 Weight last 48 hrs Weight 181 lb Physical Exam Narrative: At this point I would say she is a incomplete spinal cord injury. Likely a C5 Lianne D. Sensation is intact in her lower extremities however she has no motor function. Urinary Catheter Management: Simon: Cath Placed During This Visit: yes Reason for Continuing Indwelling Catheter: Acute Urinary Retention or Obstruction Urinary Catheter Date of Insertion: 02/05/22 Urinary Catheter Time of Insertion: 00:25 Data : 02/06/22 04:38 02/06/22 04:38 Micro: Microbiology 02/03/22 12:00 Gram Stain - Final Other Source Anaerobic Culture - Preliminary Wound Culture - Final Staphylococcus aureus A&P Assessment and plan (1) Status post cervical spinal fusion: Patient is status post ACDF for decompression of spinal abscess. Patient did also hyperextend her neck with a fall hitting her head on the coffee table. This may have caused her to become a more of an acute compression of the spinal cord than just the abscess. Status: Acute Attestations Medical Necessity Statement*: per primary service Procedures Arterial Line Size (Gauge): 20 Coding Level of Care Code Acute Ventilation Equipment Tender for Chg Fwd Diagnoses Status post cervical spinal fusion Z98.1
--- NOTE | 2022-02-07 13:33 | PM.PN ---
Subjective Subjective: No acute events overnight. Patient has remained hemodynamically stable and afebrile. On examination working with physical therapy. States still not able to make a fist, maintains sensory functions in the lower limb but not able to move lower limbs. Complaining of occasional pain. States spasms are better. Vitals/I&O/Wt Last Vital Signs Temp 97.5 F L 02/07/22 07:00 Pulse 65 02/07/22 13:00 Resp 20 H 02/07/22 13:00 BP 130/78 02/07/22 13:00 Pulse Ox 91 02/07/22 11:00 02/06/22 02/07/22 02/07/22 22:59 06:59 14:59 Intake Total 900 / 1160 300 / 1460 280 / 280 Output Total 1999 / 1999 2000 / 4000 Balance -1100 / -840 -1700 / -2540 280 / 280 Weight last 48 hrs Weight 82.1 kg Physical Exam Narrative: In cervical collar Const: COMMON NORMALS: patient oriented x3 and alert ORIENTATION/CONSCIOUSNESS: Yes oriented to person, Yes oriented to place and Yes oriented to time HENMT: COMMON NORMALS: normocephalic, atraumatic and external ears normal HEAD & SCALP: normocephalic and atraumatic EXTERNAL EAR: Yes external ears normal Eye: GENERAL EYE: appearance normal, both eyes and all related structures Neck/C-Spine: COMMON NORMALS: no meningeal signs Chest: COMMONS NORMALS: normal inspection of the chest and normal palpation of entire chest wall CHEST: Yes Symmetrical chest wall rise Resp: COMMON NORMALS: normal respiratory effort, No retractions, No use of accessory muscles and clear to auscultation bilaterally EFFORT & INSPECTION: Yes symmetric chest movement AUSCULTATION: clear to auscultation bilaterally Cardio: COMMON NORMALS: regular rate, regular rhythm, S1 normal heart sound present, S2 normal heart sound present, No gallops present (Cardio), No murmurs present (Cardio), No rub (Cardio) and Peripheral pulses 2+ throughout RATE: regular rate RHYTHM: regular rhythm HEART SOUNDS: S1 normal heart sound present and S2 normal heart sound present PERIPHERAL PULSES: Peripheral pulses 2+ throughout GI: COMMON NORMALS: Normal to inspection, nondistended, normoactive bowel sounds present, Soft to palpation, non-tender, No hepatosplenomegaly present and no masses AUSCULTATION: Yes normoactive bowel sounds PALPATION: Yes Soft to palpation and Yes No hepatosplenomegaly present RECTAL EXAM: deferred Extremity: COMMON NORMALS: no clubbing, cyanosis or edema and no pedal edema Neuro: GILDA COMA SCALE: document GCS findings [place] coma scale eye opening: Spontaneous Gilda coma scale verbal response: Orientated Gilda coma scale motor response: Obey commands [place] coma scale total score: 15 COMMON NORMALS: patient oriented x3 SENSORIUM/ORIENTATION: Yes alert, Yes oriented to person, Yes oriented to place and Yes oriented to time MENINGEAL SIGNS: Yes no meningeal signs CRANIAL NERVES: Yes CN normal except as noted OTHER: Bilateral upper limb strength improving. Flexor spasm in upper and lower limbs. Sensations intact in lower limbs. Urinary Catheter Management: Simon: Cath Placed During This Visit: yes Reason for Continuing Indwelling Catheter: Acute Urinary Retention or Obstruction Urinary Catheter Date of Insertion: 02/05/22 Urinary Catheter Time of Insertion: 00:25 Data : 02/06/22 04:38 02/06/22 04:38 Micro: Microbiology 02/03/22 12:00 Gram Stain - Final Other Source Anaerobic Culture - Preliminary Wound Culture - Final Staphylococcus aureus A&P Assessment and plan (1) Spastic quadriparesis: Status: Acute (2) Abscess in epidural space of cervical spine: Status: Acute (3) Staphylococcus aureus bacteremia: MSSA Status: Acute (4) Quadriplegia: Status: Acute (5) Spinal stenosis in cervical region: Status: Acute Plan Quadriplegia: Secondary to epidural abscess at cervical spine along with discitis at C5/C6. Resolving. Postop day4. Last dose of dexamethasone today. Physical therapy, Occupational Therapy. Anticoagulation, pain medication as per surgical team. Increased dose of baclofen to 20 mg 4 times daily, continue with Flexeril as needed for muscle spasms. Staph bacteremia: MSSA. Repeat blood cultures sent on 02/04 so far negative Appreciate ID recommendations. Plan as per ID is as follows. Total duration of rx: At least 8 weeks of iv cefazolin (02/04-04/01). Thereafter, repeat MRI to ensure improving changes in MRI and clinically. Then planned transition to oral Cefadroxil for additional 4 weeks assuming MRI changes improving. (total treatment 3 months). Will need repeat MRI imaging prior to transition to po abx. PICC line placement today. Repeat blood cultures so far negative. Continue cefazolin 2 g IV daily. RPR negative, echocardiogram negative for infective endocarditis. Remove Simon catheter. 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 Appreciate neurology, surgery, ID recommendations On review of outpatient medicine it seems patient is supposed to be on Suboxone 8/2 mg. On confirming with pharmacy patient has not refilled this medication since October 2021. Hold off on Suboxone for now. Stop IV Dilaudid. Continue with [place] every 4 as needed. Code Status :Full code Lovenox for DVT prophylaxis. Famotidine for PUD prophylaxis. Transfer out of ICU to [facility]. Discharge planning: Patient has been accepted at LTAC. Plan to discharge within next 24 hours to LTAC for further management and rehab. Attestations Medical Necessity Statement*: Requires further hospitalization for management of MSSA bacteremia, and quadriplegia secondary to epidural abscess while safe discharge planning is sought Time Spent in Patient Care: Greater than 35 minutes Procedures Arterial Line Size (Gauge): 20 Coding Level of Care Code Acute Registrar Assistant for g Fwd Exam Comprehensive Diagnoses Spastic quadriparesis G82.50 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 Quadriplegia G82.50 Spinal stenosis in cervical region M48.02
--- NOTE | 2022-02-07 16:18 | PC.NURSE ---
Simon removed. 800ml urine output. 10ml saline removed from balloon.
[2022-02-07] MEDS: HYDROcodone-acetaminophen 5-325 mg Tablet 1 TAB PO ×2 (16:41→22:39)
[2022-02-07] MEDS: quetiapine 300 mg Tablet PO (21:03)
[2022-02-08] VITALS (32 sets, daily range): BP systolic 88–118; BP diastolic 48–74; PULSE 51–69; RESP 11–20; TEMP 36.7–36.9; O2SAT 89–97
[2022-02-08] MEDS: cyclobenzaprine 10 mg Tablet 5 MG PO (02:36)
[2022-02-08] MEDS: HYDROcodone-acetaminophen 5-325 mg Tablet 1 TAB PO ×2 (03:53→08:33)
[2022-02-08 05:31] LABS: Basophils % 0.1 %; Eosinophils # 0.1 10^3/uL (0.0-0.8); Eosinophils % 1.2 %; Hematocrit 38.9 % (37.0-47.0); Hemoglobin 12.4 g/dL (11.5-15.3); Lymphocytes # 2.9 10^3/uL (0.8-4.8); Lymphocytes % 27.1 %; Mean Corpuscular HGB Conc 31.9 g/dL (30.0-36.0); Mean Corpuscular Hemoglobin 27.6 pg (28.0-34.0); Mean Corpuscular Volume 86.6 fl (81-99); Mean Platelet Volume 8.4 fL (7.4-10.4); Monocytes # 0.7 10^3/uL (0.2-0.9); Monocytes % 6.7 %; Neutrophils # 6.97 10^3/uL (1.8-7.7); Neutrophils % 64.2 %; Nucleated Red Blood Cells % 0 %; Platelet Count 326 10^3/cmm (130-400); Red Blood Count 4.49 10^6/uL (4.1-5.3); Red Cell Distribution Width 14.4 % (12.1-15.1); White Blood Count 10.9 10^3/uL (4.0-10.0)
[2022-02-08] MEDS: enoxaparin 40 mg/0.4 mL Syringe SUBCUT (05:53)
[2022-02-08 05:57] LABS: Alanine Aminotransferase 8 U/L (0-33); Albumin Level 3.2 g/dL (3.5-5.2); Alkaline Phosphatase 79 IU/L (35-105); Aspartate Amino Transferase 8 U/L (0-32); Blood Urea Nitrogen 15 mg/dL (6-20); Carbon Dioxide 28 mmol/L (22-29); Chloride 104 mmol/L (98-107); Globulin 3.6 g/dL (1.3-4.6); Glomerular Filtration Rate 175.9 mL/min (90-130); Glucose 104 mg/dL (65-115); Osmolality Calculated 291 mOsm/kg (285-295); Sodium 140 mmol/L (136-145); Total Bilirubin 0.2 mg/dL (0.15-1.2); Total Protein 6.8 g/dL (6.6-8.7)
[2022-02-08 06:43] LABS: Hepatitis A Antibody IgM Non-Reactive (Nonreactive); Hepatitis B Surface Antigen Non-Reactive (Nonreactive)
--- NOTE | 2022-02-08 07:30 | PC.NURSE ---
report given to nurse to transfer to room 2nd floor attempted to call all 3 numbers listed as contacts on chart with no answer at this time ... transfered by bed .
--- NOTE | 2022-02-08 08:01 | PM.PN ---
Subjective Subjective: Infectious disease progress note: leukocytosis trending down Stable hemodynamically Afberile Blood cx clear since 02/04 TTE without gross vegetations Working with physical therapy Medications: Reviewed: Yes Vitals/I&O/Wt Last Vital Signs Temp 98.4 F 02/08/22 07:52 Pulse 59 L 02/08/22 07:52 Resp 16 02/08/22 07:52 BP 116/74 02/08/22 07:52 Pulse Ox 96 02/08/22 07:52 02/07/22 02/08/22 02/08/22 22:59 06:59 14:59 Intake Total 1040 / 1380 110 / 1490 Output Total 1050 / 3150 700 / 3850 Balance -10 / -1770 -590 / -2360 Weight last 48 hrs Weight 82.1 kg Physical Exam Narrative: GEN: Awake, alert and oriented, no acute distress CVS: S1S2 N RS: CTA B/L Abd: Soft, nt/nd , bs+ Urinary Catheter Management: Simon: Cath Placed During This Visit: yes, but has since been removed by the nurse Reason for Continuing Indwelling Catheter: Acute Urinary Retention or Obstruction Urinary Catheter Date of Insertion: 02/07/22 Urinary Catheter Time of Insertion: 19:31 Date Urinary Catheter Removed: 02/07/22 Time Urinary Catheter Discontinued: 16:00 Data : 02/08/22 05:03 02/08/22 05:03 Micro: Microbiology 02/03/22 12:00 Gram Stain - Final Other Source Anaerobic Culture - Preliminary Wound Culture - Final Staphylococcus aureus 02/04: Blood cx : NGTD 02/02: blood cx MSSA 02/03 : blood cx : MSSA A&P Assessment and plan (1) Spastic quadriparesis: Status: Acute (2) Abscess in epidural space of cervical spine: Status: Acute (3) Staphylococcus aureus bacteremia: MSSA Status: Acute Plan 41y/o lady presenting with spastic quadripresis and found to have C spine discitis and epidural abscess. Blood cx with MSSA on 02/02, thus far clear from 02/04 s/p diskectomy and instrumentation c2 to c6 on 02/03 OR cx from epidural abscess on 02/03 with MSSA Primary source may be related to h/o IVDU few months ago around stressor life event, denies current IVDU. PLAN: Continue cefazolin 2g iv q8h for organism directed therapy for MSSA. Okay to place PICC at this point TTE grossly without any vegetations or other abnormalities. no peripheral stigmata of endocarditis. Total duration of rx: Recommend at least 8 weeks of iv cefazolin (02/04-04/01). Thereafter, repeat MRI to ensure improving changes in MRI and clinically. Then planned transition to oral Cefadroxil 1g BID vs bactrim for additional 4 weeks assuming MRI changes improving. (total treatment 3 months). Will need repeat MRI imaging prior to transition to po abx. Chronic suppression may be considered at end of treatment course given presence of hardware depending on clinical recovery and repeat imaging. Patient will need close Infectious disease follow up at discharge for above abx decisions. Weekly WBC, platelet, LFT, cr, ESR and CRP while on cefazolin. Unfortunately I will be away until May 2022 and not available for outpatient drug or lab monitoring or follow ups until then. Please arrange for ID follow up close to patient's discharge location. Likely most appropriate disposition will be acute rehab vs SNF. No other source of infection evident on history or clinical exam. CXR clear. No abdominal symptoms. pending hep B, hep C screen, negative RPR and HIV screen Thank you for this consult. Please call with any further questions or concerns. Attestations Medical Necessity Statement*: per admitting team Procedures Arterial Line Size (Gauge): 20 Coding Level of Care Code Acute Warehouse Order Filler for g Fwd Diagnoses Spastic quadriparesis G82.50 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
[2022-02-08 08:14] LABS: Hepatitis B Surface AB > 1000.0 (11.5-1000)
[2022-02-08 08:15] LABS: Hepatitis B Core AB, Total Reactive (Nonreactive)
[2022-02-08 08:16] LABS: Hepatitis C Virus Antibody Reactive (Nonreactive)
[2022-02-08] MEDS: docusate sodium 100 mg Capsule PO (08:32)
[2022-02-08] MEDS: aspirin 81 mg EC Tablet PO (08:32)
[2022-02-08] MEDS: dexamethasone 4 mg/mL INJ IVP (08:33)
[2022-02-08] MEDS: amlodipine 5 mg Tablet PO (08:33)
[2022-02-08] MEDS: gabapentin 400 mg Capsule PO ×2 (08:33→12:08)
[2022-02-08] MEDS: famotidine 20 mg Tablet PO (08:33)
[2022-02-08] MEDS: baclofen 10 mg Tablet 20 MG PO ×2 (08:33→12:08)
[2022-02-08] MEDS: nicotine 14 mg Patch 1 PATCH TRANSDERMA (08:33)
[2022-02-08] MEDS: HYDROcodone-acetaminophen 5-325 mg Tablet PO (09:17)
--- NOTE | 2022-02-08 11:16 | P.DS_ITS ---
Discharge Providers Date of Admission: 02/02/22 20:37 Date of Discharge: February 08, 2022 Attending Provider at Admission: Parrish Sparrow MD Attending Provider at Discharge: Logan Meza MD Consults: Neurology: Dr. Juarez Neurosurgery: Dr. Mathew ID: Dr. 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 She had started experiencing neck pain and stiffness 2 days prior to presentation at [facility], thought she had a neck spasm at the time and was taking cyclobenzaprine.? Neck stiffness continued to get worse and then eventually she was not able to walk and developed significant weakness in bilateral upper extremities.? She sustained a fall at home and had a head injury.? MRI of the cervical spine showed discitis at the C5-C6 level with extension into the anterior epidural space throughout the cervical spine suspicious for an epidural abscess.? Additionally noted was severe spinal stenosis and impingement of the cervical cord at the level of C5-C6 with a long segment of syrinx proximal to the impingement and extending caudally to the level of T2-T3.? She underwent discectomy and instrumentation at levels extending from C2-C6 on February 03, 2022.? Purulence was encountered intraoperatively at level C5-C6 per op note.? Postoperatively she continues to have spastic quadriparesis however showing some recovery in the upper extremities and NIF currently.? Blood culture from admission on February 02, 2022 resulted with MSSA, as stated operative cultures from February 03, 2022.? Blood culture from February 04, 2022 is currently negative to date.? Patient has been on treatment with Zosyn and vancomycin since admission. Denies current IVDU however reports that she had a brief history od drug use after her mother few months ago. Followed up at suboxone clinic, but appears hasnt needed to fill prescription since Oct 2021.? Patient tried IV a ntibiotic with changed to cefazolin as per culture sensitivities. Her blood cultures from 02/04 are so far negative. For further management patient needs acute rehab and close follow-up with ID for which safe discharge planning was discussed in detail. Patient agreed for transfer to LTAC for further management. It is recommended that total duration of rx: At least 8 weeks of iv cefazolin (02/04-04/01). Thereafter, repeat MRI to ensure improving changes in MRI and clinically. Then planned transition to oral Cefadroxil for additional 4 weeks assuming MRI changes improving. (total treatment 3 months). Will need repeat MRI imaging prior to transition to po abx. Patient has been transferred to LTAC in hemodynamically stable condition. Physical Exam Narrative: In cervical collar Const: COMMON NORMALS: patient oriented x3 and alert ORIENTATION/CONSCIOUSNESS: Yes oriented to person, Yes oriented to place and Yes oriented to time HENMT: COMMON NORMALS: normocephalic, atraumatic and external ears normal HEAD & SCALP: normocephalic and atraumatic EXTERNAL EAR: Yes external ears normal Eye: GENERAL EYE: appearance normal, both eyes and all related structures Neck/C-Spine: COMMON NORMALS: no meningeal signs Chest: COMMONS NORMALS: normal inspection of the chest and normal palpation of entire chest wall CHEST: Yes Symmetrical chest wall rise Resp: COMMON NORMALS: normal respiratory effort, No retractions, No use of accessory muscles and clear to auscultation bilaterally EFFORT & INSPECTION: Yes symmetric chest movement AUSCULTATION: clear to auscultation bilaterally Cardio: COMMON NORMALS: regular rate, regular rhythm, S1 normal heart sound present, S2 normal heart sound present, No gallops present (Cardio), No murmurs present (Cardio), No rub (Cardio) and Peripheral pulses 2+ throughout RATE: regular rate RHYTHM: regular rhythm HEART SOUNDS: S1 normal heart sound present and S2 normal heart sound present PERIPHERAL PULSES: Peripheral pulses 2+ throughout GI: COMMON NORMALS: Normal to inspection, nondistended, normoactive bowel sounds present, Soft to palpation, non-tender, No hepatosplenomegaly present and no masses AUSCULTATION: Yes normoactive bowel sounds PALPATION: Yes Soft to palpation and Yes No hepatosplenomegaly present RECTAL EXAM: deferred Extremity: COMMON NORMALS: no clubbing, cyanosis or edema and no pedal edema Neuro: MICHAEL COMA SCALE: document GCS findings [place] coma scale eye opening: Spontaneous Michael coma scale verbal response: Orientated [place] coma scale motor response: Obey commands [place] coma scale total score: 15 COMMON NORMALS: patient oriented x3 SENSORIUM/ORIENTATION: Yes alert, Yes oriented to person, Yes oriented to place and Yes oriented to time MENINGEAL SIGNS: Yes no meningeal signs CRANIAL NERVES: Yes CN normal except as noted OTHER: Bilateral upper limb strength improving. Flexor spasm in upper and lower limbs. Sensations intact in lower limbs. Urinary Catheter Management: Simon: Cath Placed During This Visit: yes, but has since been removed by the nurse Reason for Continuing Indwelling Catheter: Acute Urinary Retention or Obstruction Urinary Catheter Date of Insertion: 02/07/22 Urinary Catheter Time of Insertion: 19:31 Date Urinary Catheter Removed: 02/07/22 Time Urinary Catheter Discontinued: 16:00 Discharge Data Studies Completed and Pending Completed Studies During Hospitalization Category Date Time Status CT head wo con* [id number] Urgent Cat Scan 02/02/22 13:47 Completed XR cervical spine 3V* [id number] Routine Exams 02/03/22 Completed XR chest 1V portable [id number] Routine Exams 02/05/22 19:31 Completed XR chest 1V portable [id number] Urgent Exams 02/02/22 13:47 Completed MR cervical spin wo con* [id number] Urgent MRI 02/02/22 15:27 Completed MR head wo con* [id number] Urgent MRI 02/02/22 15:37 Completed MR thoracic spin wo con* [id number] Urgent MRI 02/02/22 15:27 Completed CV. echo complete* [id number] Routine Ultrasound 02/05/22 00:16 Completed Pending at discharge Category Date Time Status Anaerobic Culture Routine Lab 02/03/22 12:00 Results Blood Culture AM LABS Lab 02/04/22 05:02 Results Hepatitis C RNA Viral Load Qnt Routine Lab 02/08/22 08:20 Received Wound Culture and Gram Stain Routine Lab 02/03/22 12:00 Results Radiology Impressions Head CT 02/02/22 13:47 IMPRESSION: No acute intracranial abnormality. Cervical Spine MRI 02/02/22 15:27 IMPRESSION: 1. Findings suspicious for discitis at C5-C6 with localized extension/lobulated thickening of the anterior epidural space throughout the cervical spine suspicious for epidural abscess. 2. There is severe spinal stenosis and impingement the cervical cord at the level of C5-C6 with a long segment of syrinx proximal to the impingement as well as caudally extending to the level of T2-T3. ADDENDUM: 02/02/[address] Heller acknowledged receipt of report at 02/02/2022 7:00 PM ANALYTICS ANALYST. Thoracic Spine MRI 02/02/22 15:27 IMPRESSION: Cervical cord syrinx noted on concurrent MRI extends into the thoracic cord to the level of T4. Minimal central cord fluid/syrinx seen more caudally within the visualized thoracolumbar cord. No signs of discitis/osteomyelitis, severe spinal stenosis, or cord impingement in the thoracic spine. Head MRI 02/02/22 15:37 IMPRESSION: No acute findings. Cervical Spine X-Ray 02/03/22 00:00 IMPRESSION: Intraoperative imaging during anterior cervical fusion at C2-3 and C5-6. Screw associated with the C3 vertebral body is not evident on the imaging submitted. Chest X-Ray 02/05/22 19:31 IMPRESSION: Left lower lobe atelectasis versus minimal infiltrate. ECHOCARDIOGRAM CONCLUSIONS ?Normal left ventricular size and systolic function, EF 77 %. No?regional wall motion abnormalities. ?No masses or vegetations were noted on the mitral or aortic?valve?The tricuspid and pulmonic valves were not visualized well ?There is no pericardial effusion. ?Consider KAY, if clinically indicated, to better evaluate the?valves ?Dr Arely Longoria MD [facility] ?(Electronically Signed) ?Final Date:? ? ? 05 February 2022 ? 07:51 S * Laboratory Results WBC 10.9 10^3/uL (4.0-10.0) H 02/08/22 05:03 RBC 4.49 10^6/uL (4.1-5.3) 02/08/22 05:03 Hgb 12.4 g/dL (11.5-15.3) 02/08/22 05:03 Hct 38.9 % (37.0-47.0) 02/08/22 05:03 MCV 86.6 fl (81-99) 02/08/22 05:03 MCH 27.6 pg (28.0-34.0) L 02/08/22 05:03 MCHC 31.9 g/dL (30.0-36.0) 02/08/22 05:03 RDW 14.4 % (12.1-15.1) 02/08/22 05:03 Plt Count 326 10^3/cmm (130-400) 02/08/22 05:03 MPV 8.4 fL (7.4-10.4) 02/08/22 05:03 Neut % (Auto) 64.2 % 02/08/22 05:03 Lymph % (Auto) 27.1 % 02/08/22 05:03 [place] % (Auto) 6.7 % 02/08/22 05:03 Eos % (Auto) 1.2 % 02/08/22 05:03 Baso % (Auto) 0.1 % 02/08/22 05:03 Neut # (Auto) 6.97 10^3/uL (1.8-7.7) 02/08/22 05:03 Lymph # (Auto) 2.9 10^3/uL (0.8-4.8) 02/08/22 05:03 [place] # (Auto) 0.7 10^3/uL (0.2-0.9) 02/08/22 05:03 Eos # (Auto) 0.1 10^3/uL (0.0-0.8) 02/08/22 05:03 Baso # (Auto) 0.0 10^3/uL (0.0-0.1) 02/08/22 05:03 Nucleated RBC % (auto) 0 % 02/08/22 05:03 Nucleated RBCs # 0.0 /100WBC 02/08/22 05:03 ESR 58 mm/hr (0-15) H 02/03/22 03:02 Sodium 140 mmol/L (136-145) 02/08/22 05:03 Potassium 4.0 mmol/L (3.5-5.1) 02/08/22 05:03 Chloride 104 mmol/L (98-107) 02/08/22 05:03 Carbon Dioxide 28 mmol/L (22-29) 02/08/22 05:03 Anion Gap 12.0 (5-19) 02/08/22 05:03 BUN 15 mg/dL (6-20) 02/08/22 05:03 Creatinine 0.4 mg/dL (0.5-0.9) L 02/08/22 05:03 GFR Calculation 175.9 mL/min (90-130) H 02/08/22 05:03 Glucose 104 mg/dL (65-115) 02/08/22 05:03 Estimat Average Glucose 108 02/04/22 04:50 Hemoglobin A1c 5.4 % (4.0-6.0) 02/04/22 04:50 Calculated Osmolality 291 mOsm/kg (285-295) 02/08/22 05:03 Calcium 9.0 mg/dL (8.5-10.5) 02/08/22 05:03 Phosphorus 3.5 mg/dL (2.5-4.5) 02/03/22 03:02 Magnesium 2.5 mg/dL (1.7-2.3) H 02/03/22 03:02 Iron 16 ug/dL (37-145) L 02/03/22 03:02 TIBC 225 mcg/dl 02/03/22 03:02 % Saturation 7.1 % (20-50) L 02/03/22 03:02 Unsat Iron Binding 209 ug/dL (112-347) 02/03/22 03:02 Total Bilirubin 0.2 mg/dL (0.15-1.2) 02/08/22 05:03 AST 8 U/L (0-32) 02/08/22 05:03 ALT 8 U/L (0-33) 02/08/22 05:03 Alkaline Phosphatase 79 IU/L (35-105) 02/08/22 05:03 C-Reactive Protein 276.9 mg/L (0.0-4.9) H 02/03/22 03:02 Total Protein 6.8 g/dL (6.6-8.7) 02/08/22 05:03 Albumin 3.2 g/dL (3.5-5.2) L 02/08/22 05:03 Globulin 3.6 g/dL (1.3-4.6) 02/08/22 05:03 Triglycerides 102 mg/dL (0-150) 02/04/22 04:50 Cholesterol 154 mg/dL (0-200) 02/04/22 04:50 LDL Cholesterol, Calc 102 mg/dL (50-129) 02/04/22 04:50 Total VLDL Cholesterol 20 mg/dL (0-30) 02/04/22 04:50 HDL Cholesterol 32 mg/dL (60-100) L 02/04/22 04:50 Cholesterol/HDL Ratio 4.81 mg/dL (0.0-4.40) H 02/04/22 04:50 Procalcitonin 0.08 ng/mL (0-0.5) 02/03/22 03:02 TSH 0.61 uIU/mL (0.27-4.20) 02/02/22 14:00 HCG, Qual Negative (Negative) 02/02/22 14:00 Urine Color Yellow (Yellow) 02/02/22 14:10 Urine Appearance Clear (CLEAR) 02/02/22 14:10 Urine pH 7 (5-7) 02/02/22 14:10 Ur Specific [place] 1.010 (1.005-1.030) 02/02/22 14:10 Urine Protein Neg (Negative) 02/02/22 14:10 Urine Glucose (UA) Norm (Normal) 02/02/22 14:10 Urine Ketones Negative (Negative) 02/02/22 14:10 Urine Blood Neg (Negative) 02/02/22 14:10 Urine Nitrate Negative (Negative) 02/02/22 14:10 Urine Bilirubin Neg (Negative) 02/02/22 14:10 Urine Urobilinogen 1 mg/dL (Negative) H 02/02/22 14:10 Ur Leukocyte Esterase Negative (Negative) 02/02/22 14:10 Vancomycin Trough 14.2 ug/mL (10-15) 02/05/22 00:42 Urine Opiates Screen Positive ng/mL (Negative) H 02/02/22 14:10 Ur Barbiturates Screen Negative ng/mL (Negative) 02/02/22 14:10 Ur Phencyclidine Scrn Negative ng/mL (Negative) 02/02/22 14:10 Ur Amphetamines Screen Negative ng/mL (Negative) 02/02/22 14:10 U Benzodiazepines Scrn Negative ng/mL (Negative) 02/02/22 14:10 Urine Cocaine Screen Negative ng/mL (Negative) 02/02/22 14:10 U Marijuana (THC) Screen Positive ng/mL (Negative) H 02/02/22 14:10 Ethyl Alcohol < 10 mg/dL (0-10) 02/02/22 14:00 RPR Nonreactive (Nonreactive) 02/05/22 03:07 Hepatitis A IgM Ab Non-reactive (Nonreactive) 02/08/22 05:03 Hep Bs Antigen Non-reactive (Nonreactive) 02/08/22 05:03 Hep Bs Antibody > 1000.0 (11.5-1000) H 02/08/22 05:03 Hep B Core Total Ab Reactive (Nonreactive) H 02/08/22 05:03 Hepatitis C Antibody Reactive (Nonreactive) H 02/08/22 05:03 HIV 1&2 Ab & HIV 1 Ag Non-reactive (Non-Reactiv) 02/05/22 03:07 HIV 1&2 Antibody Non-reactive (Non-Reactiv) 02/05/22 03:07 Vitals Last Vital Signs Temp 98.4 F 02/08/22 07:52 Pulse 59 L 02/08/22 07:52 Resp 16 02/08/22 07:52 BP 116/74 02/08/22 07:52 Pulse Ox 96 02/08/22 07:52 Discharge Plan Discharge Patient Disposition: Xfer LTC Condition: Stable Prescriptions: No Action cyclobenzaprine 10 mg tablet 10 mg PO TID PRN (Reason: Muscle Pain) 0RF quetiapine 200 mg tablet 200 mg PO BEDTIME 0RF aspirin 81 mg tablet,delayed release (DR/EC) 81 mg PO DAILY 0RF gabapentin 300 mg capsule 300 mg PO TID 0RF ibuprofen 600 mg tablet 600 mg PO QID PRN (Reason: Pain) 0RF atenolol 50 mg tablet 50 mg PO DAILY PRN (Reason: HEARTRATE) 0RF Suboxone 8-2 mg film 1 film sublingual TID 0RF Narcan 4 mg/actuation spray,non-aerosol See Rx Instructions .ROUTE .COMPLEX PRN (Reason: overdose) 0RF Rx Instructions: 1 spray intranasally every 2-3 mins PRN overdose Referrals: Devika Garcia MARKETING WRITER-C [Primary Care Provider] - Discharge Diet: Regular Discharge Activity: Resume usual activity Patient Instructions: Opioid Safety Activity Restrictions/Additional Instructions: Recommend at least 8 weeks of iv cefazolin (02/04-04/01). Thereafter, repeat MRI to ensure improving changes in MRI and clinically. Then planned transition to oral Cefadroxil 1g BID vs bactrim for additional 4 weeks assuming MRI changes improving. (total treatment 3 months). Will need repeat MRI imaging prior to transition to po abx. Close ID and neurology follow-up Discharge Attestations Time Spent in Discharge Care*: greater than 30 min Specific Discharge Activities: educating patient, educating and/or supporting family/caregiver, discussing with pcp/other providers, discussing with briefcase sewer/social workers/dc planners, documenting/other paperwork and evaluating patient/reviewing data Status at Discharge: Cognitive status at discharge: cognitively intact , Behavioral status at discharge: cooperative , Functional status at discharge: wheelchair bound , Overall status at discharge: patient has a new baseline Quality Metrics Clinical Quality Measures [ No reported AMI, CVA or VTE this stay] Coding Level of Care Code Acute Chg FW DC note Diagnoses Spastic quadriparesis G82.50 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
[2022-02-08] MEDS: ALPRAZolam 0.5 mg Tablet PO (12:08)
--- NOTE | 2022-02-08 14:04 | ECG_ITS ---
[facility] Test Date: 2022-02-08 Pat Name: Jazmine Cancino Department: Room: 256 Gender: Female Superintendent Service: : 1980 Requested By: Logan Meza Order Number: [id number] Leatha MD: Cirilo Tanner M.D. Measurements Intervals [place] Rate: 90 P: 62 IL: 131 QRS: 57 QRSD: 76 T: 53 QT: 347 QTc: 426 Interpretive Statements SINUS RHYTHM Compared to ECG 02/02/2022 19:01:08 No significant changes Electronically Signed On 02-09-2022 15:45:06 CDT by Cirilo Tanner M.D. [email or web address] Training Room (T[facility].[employer]/store/OM/[id number]
--- NOTE | 2022-02-08 15:15 | PC.NURSE ---
[facility] PERSONAL BELONGINGS. REPORT CALLED TO HOWARD MONTILLA AND ALL PAPERWORK SENT.
[2022-02-09 23:27] LABS: HEP C RNA Viral Load Quant <1.18 NOT DETECTED Log IU/mL (NOT DETECTED); HEP C RNA Viral Load Quant <15 NOT DETECTED IU/mL (NOT DETECTED)
== END 2022-02-08 15:16 | DRG 28 ==
LOC: ER 15:38 → ICU 16:35 → MEDSURG 02-08 07:45
PROVIDERS: Orthopaedic Surgery; Student in an Organized Health Care Education/Training Program; Admitting Provider Internal Medicine; Emergency Provider Emergency Medicine; PCP Nurse Practitioner Family; Visit Provider Student in an Organized Health Care Education/Training Program
PROC: 0RT30ZZ Resection of Cervical Vertebral Disc, Open Approach (ICD-10-PCS; principal; 2022-02-03 09:30)
PROC: 0RB30ZZ Excision of Cervical Vertebral Disc, Open Approach (ICD-10-PCS; CPT 22551; 2022-02-03 09:30)
DX: G06.1 Intraspinal abscess and granuloma (principal); G82.50 Quadriplegia, unspecified; M46.42 Discitis, unspecified, cervical region; F17.210 Nicotine dependence, cigarettes, uncomplicated; M48.02 Spinal stenosis, cervical region; W19.XXXA Unspecified fall, initial encounter; G89.29 Other chronic pain; B95.61 Methicillin susceptible Staphylococcus aureus infection as the cause of diseases classified elsewhere; F40.240 Claustrophobia; Z79.82 Long term (current) use of aspirin
CPT/HCPCS: 36415; 36620; 51702; 70450; 70551; 71045; 72040; 72141; 72146; 76000; 76937; 80053; 80061; 80202; 80306; 80307; 81003; 83036; 83540; 83550; 83735; 84100; 84145; 84443; 84703; 85025; 85651; 86140; 86592; 86705; 86706; 86709; 86803; 87040; 87070; 87075; 87077; 87150; 87176; 87186; 87205; 87340; 87522; 87641; 87806; 93005; 93306; 96365; 96367; 96372; 96375; 97110; 97112; 97162; 97165; 97530; 99285; C1713; C9359; J0330; J0690; J1100; J1170; J1650; J1885; J2250; J2270; J2405; J2543; J2704; J2710; J3010; J3370; J3490; J7030; J7050; L0174; L3924

== ENCOUNTER → 2022-04-24 13:27 | Outpatient (BNVA) | payer MEDICAID, SELFPAY | PROVIDERS: PCP Nurse Practitioner Family; Visit Provider Physician Assistant | DX: Z98.890 Other specified postprocedural states (principal); Z47.89 Encounter for other orthopedic aftercare; Z98.1 Arthrodesis status; F17.200 Nicotine dependence, unspecified, uncomplicated; Z71.6 Tobacco abuse counseling | CPT/HCPCS: 72040; 99213; 99406 ==

== ENCOUNTER → 2024-04-19 14:35 | Outpatient (BNVA) | payer MEDICAID, SELFPAY | PROVIDERS: PCP Nurse Practitioner Family; Referring Provider Registered Nurse; Visit Provider Orthopaedic Surgery | DX: M54.9 Dorsalgia, unspecified (principal) | CPT/HCPCS: 72110 ==

== ENCOUNTER 2025-08-07 13:03 | Emergency (ER) | payer MEDICAID, SELFPAY ==
--- NOTE | 2025-08-07 13:00 | W.ED.FALL ---
Documented by User: KATYA Clemens 08/07/25 14:49 HPI - Fall General: Chief Complaint: Fall Stated Complaint: fall Source: patient Mode of arrival: EMS Limitations: no limitations History of Present Illness: Patient is a 45-year-old female presents to ED today via EMS for evaluation following a fall. Patient states she normally ambulates with the help of a cane due to chronic left-sided leg weakness. She states she was using her cane when she accidentally tripped and fell onto her left side. She is complaining of left-sided chest and abdominal pain at time of arrival to the emergency department. She denies striking her head or LOC. Patient denies drug use. She is extremely hypotensive upon arrival-60/40s. She is not tachycardic or hypoxic. She is afebrile. Patient is not complaining of lightheadedness or dizziness. She does take chronic opiates. MD complaint: fall Onset (ago): hour(s) Fall from: standing Fall witnessed: no Place fall occurred: home Loss of consciousness: None Prolonged down time: no Symptoms prior to fall: none Context: tripped/slipped Location of injury: chest and abdomen Severity: moderate Associated symptoms-after fall: Reports no associated symptoms, abdominal pain and chest pain (L rib pain); Denies headache(s), hematuria, lightheadedness or neck pain Related Data Home Medications ?Medication ?Instructions ?Recorded ?Confirmed aspirin 81 mg tablet,delayed 81 mg PO DAILY 02/02/22 08/07/25 release buprenorphine 8 mg-naloxone 2 mg 1 film sublingual TID 02/02/22 08/07/25 sublingual film (Suboxone) gabapentin 300 mg capsule 300 mg PO TID 02/02/22 08/07/25 ibuprofen 600 mg tablet 600 mg PO QID PRN Pain 02/02/22 08/07/25 naloxone 4 mg/actuation nasal See Rx Instructions .Route 02/02/22 08/07/25 spray (Narcan) .COMPLEX PRN overdose quetiapine 300 mg tablet 600 mg PO DAILY 08/07/25 08/07/25 tirzepatide (weight loss) 2.5 2.5 mg SUBCUT Q7D 08/07/25 08/07/25 mg/0.5 mL subcutaneous pen injector (Zepbound) Allergies Allergy/AdvReac Type Severity Reaction Status Date / Time Sulfa (Sulfonamide Allergy Unknown Verified 04/24/22 13:38 Antibiotics) Review of Systems Eyes: Denies: change in vision, blurry vision, photophobia, eye discharge, floaters or seeing flashes ENMT: Denies: throat pain, odynophagia, ear or mastoid pain, ear discharge, nasal discharge, epistaxis or sinus pain Card: Reports: chest pain (L rib pain); Denies: palpitations, lightheadedness, syncope or pre-syncope Resp: Denies: dyspnea or pain on inspiration GI: Reports: abdominal pain : Denies: flank pain or hematuria Musc: Denies: neck pain, back pain, extremity pain or joint pain Neuro: Denies: headache(s), numbness in extremities, weakness in extremities, sensory changes or dizziness PFSH ED PFSH: Medical History IV drug user Encounter for chronic pain management Lesion of ulnar nerve, left upper limb Family History Denies family history of Cancer Social History Smoking and tobacco/nicotine status: current every day tobacco/nicotine user Current occupation: Patient has no steps into her apartment however several steps up to bedroom Physical Exam Const: COMMON NORMALS: no acute distress, average body habitus, patient oriented x3, no limitations, healthy appearing, alert and well nourished GENERAL APPEARANCE: cooperative ORIENTATION/CONSCIOUSNESS: Yes awake, Yes oriented to person, Yes oriented to place and Yes oriented to time HENMT: COMMON NORMALS: normocephalic, atraumatic and TM's normal bilaterally HEAD & SCALP: normal to inspection, normocephalic and atraumatic; no Diane's sign, no hematoma and no raccoon eyes FACE & SINUS: normal facial exam TYMPANIC MEMBRANE: TM's normal bilaterally MOUTH: other (no intraoral injuries noted) Eye: COMMON NORMALS: Equal, round and reactive pupils present and EOMs intact bilaterally GENERAL EYE: appearance normal, both eyes and all related structures and normal light reflex PUPIL: Yes Equal, round and reactive pupils present DIRECT OPHTHALMOSCOPY: Yes normal light reflex Neck/C-Spine: COMMON NORMALS: full ROM GENERAL: Yes normal visual inspection CERVICAL SPINE: Yes cervical ROM normal, No pain with cervical ROM, No Cervical spine tenderness, No step off deformity and No Paracervical muscle tenderness Chest: COMMONS NORMALS: normal inspection of the chest OTHER: TTP L rib pain; no crepitus noted Resp: COMMON NORMALS: normal respiratory effort and clear to auscultation bilaterally AUSCULTATION: clear to auscultation bilaterally Cardio: COMMON NORMALS: regular rate and regular rhythm RATE: regular rate RHYTHM: regular rhythm GI: COMMON NORMALS: Soft to palpation, No hepatosplenomegaly present and no masses INSPECTION: No abdominal wall ecchymosis and Yes other (scattered old appearing ecchymosis) AUSCULTATION: Yes normoactive bowel sounds PALPATION: Yes Soft to palpation, Yes Tenderness to palpation present (GI) (mild-diffusely but more so to L upper abdomen), No Guarding due to palpation present (GI), No Rigid due to palpation and Yes No hepatosplenomegaly present : COMMON NORMALS: Yes no CVA tenderness BLADDER/KIDNEY EXAM: Yes no CVA tenderness Back/Pelvis: COMMON NORMALS: no CVA tenderness, thoracic and lumbar spine normal to inspection, no thoracic nor lumbar tenderness and thoraco-lumbar ROM normal Extremity: COMMON NORMALS: normal to inspection and full ROM GENERAL: Yes normal exam except as noted OTHER: chronic motor weakness to L LE Neuro: MICHAEL COMA SCALE: document GCS findings Michael coma scale eye opening: Spontaneous Michael coma scale verbal response: Orientated [place] coma scale motor response: Obey commands Michael coma scale total score: 15 COMMON NORMALS: patient oriented x3, CN's II-XII intact bilaterally, moves all extremities, no focal motor deficits and no sensory deficits noted SENSORIUM/ORIENTATION: Yes alert, Yes oriented to person, Yes oriented to place and Yes oriented to time SPEECH: speech normal GAIT: Yes Normal gait present Skin: COMMON NORMALS: no rashes or lesions noted NARRATIVE SKIN EXAM: scattered old areas of ecchymosis GENERAL SKIN EXAM: no rashes or lesions noted TRAUMA: no lacerations or abrasions Course Consultations: Consultation #1: [facility] transfer line-accepting trauma on behalf of Dr. Batres Vital Signs: Vital signs: Vital Signs Temperature 98.1 F 08/07/25 13:09 Pulse Rate 85 08/07/25 14:39 Respiratory Rate 18 08/07/25 14:39 Blood Pressure 90/60 08/07/25 14:39 Pulse Oximetry 100 08/07/25 14:39 Oxygen Delivery Me thod Room Air 08/07/25 14:07 MDM - Fall Medical Decision Making Patient is a 45-year-old female here following a trip and fall earlier today landing on her left side. Upon arrival her only physical complaint was left-sided chest and abdominal pain. She was significantly hypotensive with a blood pressure of 60s/40s. IV in her foot had been established by EMS. Second IV was immediately ordered in addition to additional fluids. ED workup initiated including labs and imaging. Blood work which showed a normal white count. Mild anemia with a hemoglobin of 9.3 with no recent comparisons. Her lactic came back significantly elevated at 5.5. She was ordered additional fluids to meet sepsis criteria as well as IV antibiotics and blood cultures. She later returned from CT scan and I personally viewed through these and it looks like she has an extensive splenic injury with intra-abdominal blood. Immediately called Dr. Mckeon who concurs with this. He scanned through the remainder of her chest/abdomen/pelvis CT as well as her head and neck and no other injuries noted. Dr. Mcgraw has been involved in her care since her arrival as her blood pressure was so low. Patient was given TXA/blood products and she was transferred via [facility] to [facility] to trauma surgery. Accepting trauma surgeon is Dr. Batres. Medical Records I reviewed the patient's medical records. Lab Data I reviewed the patient's lab results. 08/07/25 13:20 08/07/25 13:20 Radiology Impressions Chest X-Ray 08/07/25 13:09 Impression: 1. Minimal right lower lobe opacity. 2. Atherosclerosis. Chest/Abdomen/Pelvis CT 08/07/25 13:09 IMPRESSION: Some images degraded by motion and respiratory artifact. 1. High-grade at least grade 4 splenic laceration with devascularized shattered anterior spleen. Main splenic artery appears intact. Perisplenic hematoma with high attenuation blood products about the anterior spleen extending to the paracolic gutter with areas of active hemorrhage. 2. Large amount of hematoma in the pelvis. Small amount of fluid or hematoma about the liver. 3. No definite visualized rib fractures overlying the spleen. 4. No pneumothorax. Notified KATYA Clemens at 08/07/[address]25 [address] 08/07/25 13:11 IMPRESSION: No evidence of acute fracture or dislocation. Head CT 08/07/25 13:11 IMPRESSION: 1. No evidence of intracranial hemorrhage or mass effect. 2. No acute intracranial findings. Notified KATYA Clemens at 08/07/2025 2:39 PM. Laboratory Results WBC 11.06 10^3/uL (3.29-11.43) 08/07/25 13:20 RBC 3.37 10^6/uL (3.85-5.65) L 08/07/25 13:20 Hgb 9.30 g/dL (11.27-16.99) L 08/07/25 13:20 Hct 29.3 % (36-47) L 08/07/25 13:20 MCV 86.9 fl (85-98) 08/07/25 13:20 MCH 27.6 pg (27-33) 08/07/25 13:20 MCHC 31.7 g/dL (30-55) 08/07/25 13:20 RDW 13.7 % (12.1-15.1) 08/07/25 13:20 Plt Count 272 10^3/cmm (157-399) 08/07/25 13:20 MPV 9.6 fL (7.4-10.4) 08/07/25 13:20 Neut % (Auto) 85.7 % 08/07/25 13:20 Lymph % (Auto) 10.2 % 08/07/25 13:20 Burnet % (Auto) 2.7 % 08/07/25 13:20 Eos % (Auto) 0.8 % 08/07/25 13:20 Baso % (Auto) 0.1 % 08/07/25 13:20 Neut # (Auto) 9.48 10^3/uL (1.8-7.7) H 08/07/25 13:20 Lymph # (Auto) 1.1 10^3/uL (0.8-4.8) 08/07/25 13:20 Burnet # (Auto) 0.3 10^3/uL (0.2-0.9) 08/07/25 13:20 Eos # (Auto) 0.1 10^3/uL (0.0-0.8) 08/07/25 13:20 Baso # (Auto) 0.0 10^3/uL (0.0-0.1) 08/07/25 13:20 Nucleated RBC % (auto) 0 % 08/07/25 13:20 Nucleated RBCs # 0.0 /100WBC 08/07/25 13:20 PT 14.30 SECONDS (12.1-14.9) 08/07/25 13:20 INR 1.04 (0.8-1.2) 08/07/25 13:20 APTT 26.9 SECONDS (23.9-36.7) 08/07/25 13:20 Specimen Type Arterial 08/07/25 13:54 Sample Site Radial, left 08/07/25 13:54 ABG pH 7.38 (7.35-7.45) 08/07/25 13:54 ABG pCO2 36.6 mmHg (35-45) 08/07/25 13:54 ABG pO2 101.0 mmHg (80.0-100.0) H 08/07/25 13:54 ABG PO2/FiO2 Ratio 480 08/07/25 13:54 ABG HCO3 21.6 mmol/L (22-26) L 08/07/25 13:54 ABG O2 Saturation 99.0 08/07/25 13:54 ABG Base Excess -3.2 mmol/L (-2.0-2.0) L 08/07/25 13:54 Bob Test Pos 08/07/25 13:54 A-a O2 Gradient 0.5 mmHg (5-10) L 08/07/25 13:54 Hematocrit 24.7 % (37-47) L 08/07/25 13:54 Hgb O2 Saturation 96.8 % (95-100) 08/07/25 13:54 Carboxyhemoglobin 1.9 %THgb (0.4-20.1) 08/07/25 13:54 Methemoglobin 0.3 % (0.4-1.5) L 08/07/25 13:54 Total Hemoglobin 8.1 g/dL (12-16) L 08/07/25 13:54 Sodium 138.0 mmol/L (131-143) 08/07/25 13:54 Potassium 3.1 mmol/L (3.5-5.0) L 08/07/25 13:54 Glucose 109.0 mg/dL (70-115) 08/07/25 13:54 Ionized Calcium 1.1 mmol/L (1.1-1.4) 08/07/25 13:54 O2 Delivery Device Room air 08/07/25 13:54 FiO2 21.0 % 08/07/25 13:54 Executive Housekeeper ID Monro 08/07/25 13:54 Sodium 138 mmol/L (136-145) 08/07/25 13:20 Potassium 3.6 mmol/L (3.5-5.1) 08/07/25 13:20 Chloride 104 mmol/L (98-107) 08/07/25 13:20 Carbon Dioxide 23 mmol/L (22-29) 08/07/25 13:20 Anion Gap 14.6 (5-19) 08/07/25 13:20 BUN 9 mg/dL (6-20) 08/07/25 13:20 Creatinine 1.0 mg/dL (0.5-0.9) H 08/07/25 13:20 GFR Calculation 60.0 mL/min (90-130) L 08/07/25 13:20 Glucose 259 mg/dL (65-115) H 08/07/25 13:20 Calculated Osmolality 294 mOsm/kg (285-295) 08/07/25 13:20 Lactic Acid 5.5 mmol/L (0.5-2.2) H* 08/07/25 13:20 Calcium 8.2 mg/dL (8.5-10.5) L 08/07/25 13:20 Total Bilirubin 0.2 mg/dL (0.15-1.2) 08/07/25 13:20 AST 14 U/L (0-32) 08/07/25 13:20 ALT 9 U/L (0-33) 08/07/25 13:20 Alkaline Phosphatase 75 U/L (35-105) 08/07/25 13:20 Total Protein 5.9 g/dL (6.6-8.7) L 08/07/25 13:20 Albumin 3.2 g/dL (3.5-5.2) L 08/07/25 13:20 Globulin 2.7 g/dL (1.3-4.6) 08/07/25 13:20 Salicylates < 0.3 mg/dL (3-10) L 08/07/25 13:20 Acetaminophen < 5.0 ug/mL (10-30) L 08/07/25 13:20 Ethyl Alcohol < 10 mg/dL (0-10) 08/07/25 13:20 Serum Ketones Negative (Negative) 08/07/25 13:20 Blood Type O Negative 08/07/25 14:23 Rho(D) Type Rh negative 08/07/25 14:23 Antibody Screen Negative 08/07/25 14:23 Crossmatch See Detail 08/07/25 14:23 All radiology interpretation(s) finalized by discharge Discharge Plan Discharge Patient Disposition: Xfer Short-Term Hosp Clinical Impression: Major laceration of spleen, initial encounter, Intra-abdominal bleeding, Fall on same level from tripping Condition: Stable Referrals: Devika Garcia, PHARMACOLOGY PROFESSOR-C [Primary Care Provider, Nurse Practitioner] Print Language: Malian Coding Level of Care Code ED Grants Analyst for Chg Fwd Documented by User: Kary Mcgraw MD 08/07/25 16:32 HPI - Fall General: Chief Complaint: Fall Stated Complaint: fall Related Data Home Medications ?Medication ?Instructions ?Recorded ?Confirmed aspirin 81 mg tablet,delayed 81 mg PO DAILY 02/02/22 08/07/25 release buprenorphine 8 mg-naloxone 2 mg 1 film sublingual TID 02/02/22 08/07/25 sublingual film (Suboxone) gabapentin 300 mg capsule 300 mg PO TID 02/02/22 08/07/25 ibuprofen 600 mg tablet 600 mg PO QID PRN Pain 02/02/22 08/07/25 naloxone 4 mg/actuation nasal See Rx Instructions .Route 02/02/22 08/07/25 spray (Narcan) .COMPLEX PRN overdose quetiapine 300 mg tablet 600 mg PO DAILY 08/07/25 08/07/25 tirzepatide (weight loss) 2.5 2.5 mg SUBCUT Q7D 08/07/25 08/07/25 mg/0.5 mL subcutaneous pen injector (Zepbound) Allergies Allergy/AdvReac Type Severity Reaction Status Date / Time Sulfa (Sulfonamide Allergy Unknown Verified 04/24/22 13:38 Antibiotics) [facility] ED PFSH: Medical History IV drug user Encounter for chronic pain management Lesion of ulnar nerve, left upper limb Family History Denies family history of Cancer Social History Smoking and tobacco/nicotine status: current every day tobacco/nicotine user Current occupation: Patient has no steps into her apartment however several steps up to bedroom Physical Exam Neuro: MICHAEL COMA SCALE: document GCS findings [place] coma scale total score: 15 Course Vital Signs: Vital signs: Vital Signs Temperature 98.1 F 08/07/25 13:09 Pulse Rate 85 08/07/25 14:39 Respiratory Rate 18 08/07/25 14:39 Blood Pressure 90/60 08/07/25 14:39 Pulse Oximetry 100 08/07/25 14:39 Oxygen Delivery Me thod Room Air 08/07/25 14:07 MDM - Fall Medical Decision Making Patient is a 45-year-old female here following a trip and fall earlier today landing on her left side. Upon arrival her only physical complaint was left-sided chest and abdominal pain. She was significantly hypotensive with a blood pressure of 60s/40s. IV in her foot had been established by EMS. Second IV was immediately ordered in addition to additional fluids. ED workup initiated including labs and imaging. Blood work which showed a normal white count. Mild anemia with a hemoglobin of 9.3 with no recent comparisons. Her lactic came back significantly elevated at 5.5. She was ordered additional fluids to meet sepsis criteria as well as IV antibiotics and blood cultures. She later returned from CT scan and I personally viewed through these and it looks like she has an extensive splenic injury with intra-abdominal blood. Immediately called Dr. Mckeon who concurs with this. He scanned through the remainder of her chest/abdomen/pelvis CT as well as her head and neck and no other injuries noted. Dr. Mcgraw has been involved in her care since her arrival as her blood pressure was so low. Patient was given TXA/blood products and she was transferred via [facility] to [facility] to trauma surgery. Accepting trauma surgeon is Dr. Batres. Attending note: I, Dr. Mcgraw the case was discussed with: the nurse practitioner. Evaluation and management service: I agree with the evaluation and management decisions made in this patient's care. Results interpretation: I agree with the study interpretation in this patient's care, I agree with the documentation of the study interpretation. I have examined the patient personally. Attending physical exam General: Alert, no acute distress. Skin: Warm, dry. Head: Normocephalic, atraumatic. Neck: Supple, trachea midline. Eye: Extraocular movements are intact. Ears, nose, mouth and throat: mucosa moist. Cardiovascular: Regular, Normal peripheral perfusion. Respiratory: Lungs are clear to auscultation, respirations are non-labored, breath sounds are equal, Symmetrical chest wall expansion. Gastrointestinal: Patient is very tender in the left upper quadrant to palpation. She also has a lot of bruising on her abdominal wall. Musculoskeletal: Normal ROM, no deformity. Neurological: Alert and oriented, No focal neurological deficit observed. Psychiatric: Cooperative, appropriate mood & affect. Lab review: I reviewed and interpreted lab personally. Patient does have some new anemia at 9.3 and I suspect if this is actually not delusional yet and will be quite a bit lower. Fluids are being given and I unit of blood. CT of the abdomen pelvis: High-grade splenic laceration with devascularized shattered anterior spleen. Main mesenteric artery appears intact. Perisplenic hematoma. Still having some active hemorrhage. Large amount of hematoma in the pelvis. Assessment and plan: Splenic laceration Abdominal trauma Hypotension ?Given the patient's hypotension and leukocytosis I agree with Zosyn and bank being given early in her stay. Fluids were given. We have also ordered a unit of O- blood for trauma. TXA given as well. Patient being transferred ER to ER to a trauma center agree with this as well. Given her low blood pressures I think flight is appropriate as well. -I discussed the patient with the accepting physician on-call. - Discussed findings and plan with patient. Answered any questions. - All laboratory values were reviewed and interpreted personally by myself, the ER physician - All imaging was reviewed and interpreted personally by myself, the ER physician. - Evaluation and treatment of this problem were appropriate in the emergency setting Critical Care: -I spent a total of >35 minutes of critical care time managing the patient, independent of any other practitioner. -The time involved in the performance of separately reportable procedures was not counted towards critical care time. Lab Data 08/07/25 13:20 08/07/25 13:20 Radiology Impressions Chest X-Ray 08/07/25 13:09 Impression: 1. Minimal right lower lobe opacity. 2. Atherosclerosis. Chest/Abdomen/Pelvis CT 08/07/25 13:09 IMPRESSION: Some images degraded by motion and respiratory artifact. 1. High-grade at least grade 4 splenic laceration with devascularized shattered anterior spleen. Main splenic artery appears intact. Perisplenic hematoma with high attenuation blood products about the anterior spleen extending to the paracolic gutter with areas of active hemorrhage. 2. Large amount of hematoma in the pelvis. Small amount of fluid or hematoma about the liver. 3. No definite visualized rib fractures overlying the spleen. 4. No pneumothorax. Notified KATYA Clemens at 08/07/[address] 08/07/25 13:11 IMPRESSION: No evidence of acute fracture or dislocation. Head CT 08/07/25 13:11 IMPRESSION: 1. No evidence of intracranial hemorrhage or mass effect. 2. No acute intracranial findings. Notified KATYA Clemens at 08/07/2025 2:39 PM. Laboratory Results WBC 11.06 10^3/uL (3.29-11.43) 08/07/25 13:20 RBC 3.37 10^6/uL (3.85-5.65) L 08/07/25 13:20 Hgb 9.30 g/dL (11.27-16.99) L 08/07/25 13:20 Hct 29.3 % (36-47) L 08/07/25 13:20 MCV 86.9 fl (85-98) 08/07/25 13:20 MCH 27.6 pg (27-33) 08/07/25 13:20 MCHC 31.7 g/dL (30-55) 08/07/25 13:20 RDW 13.7 % (12.1-15.1) 08/07/25 13:20 Plt Count 272 10^3/cmm (157-399) 08/07/25 13:20 MPV 9.6 fL (7.4-10.4) 08/07/25 13:20 Neut % (Auto) 85.7 % 08/07/25 13:20 Lymph % (Auto) 10.2 % 08/07/25 13:20 Burnet % (Auto) 2.7 % 08/07/25 13:20 Eos % (Auto) 0.8 % 08/07/25 13:20 Baso % (Auto) 0.1 % 08/07/25 13:20 Neut # (Auto) 9.48 10^3/uL (1.8-7.7) H 08/07/25 13:20 Lymph # (Auto) 1.1 10^3/uL (0.8-4.8) 08/07/25 13:20 Burnet # (Auto) 0.3 10^3/uL (0.2-0.9) 08/07/25 13:20 Eos # (Auto) 0.1 10^3/uL (0.0-0.8) 08/07/25 13:20 Baso # (Auto) 0.0 10^3/uL (0.0-0.1) 08/07/25 13:20 Nucleated RBC % (auto) 0 % 08/07/25 13:20 Nucleated RBCs # 0.0 /100WBC 08/07/25 13:20 PT 14.30 SECONDS (12.1-14.9) 08/07/25 13:20 INR 1.04 (0.8-1.2) 08/07/25 13:20 APTT 26.9 SECONDS (23.9-36.7) 08/07/25 13:20 Specimen Type Arterial 08/07/25 13:54 Sample Site Radial, left 08/07/25 13:54 ABG pH 7.38 (7.35-7.45) 08/07/25 13:54 ABG pCO2 36.6 mmHg (35-45) 08/07/25 13:54 ABG pO2 101.0 mmHg (80.0-100.0) H 08/07/25 13:54 ABG PO2/FiO2 Ratio 480 08/07/25 13:54 ABG HCO3 21.6 mmol/L (22-26) L 08/07/25 13:54 ABG O2 Saturation 99.0 08/07/25 13:54 ABG Base Excess -3.2 mmol/L (-2.0-2.0) L 08/07/25 13:54 Bob Test Pos 08/07/25 13:54 A-a O2 Gradient 0.5 mmHg (5-10) L 08/07/25 13:54 Hematocrit 24.7 % (37-47) L 08/07/25 13:54 Hgb O2 Saturation 96.8 % (95-100) 08/07/25 13:54 Carboxyhemoglobin 1.9 %THgb (0.4-20.1) 08/07/25 13:54 Methemoglobin 0.3 % (0.4-1.5) L 08/07/25 13:54 Total Hemoglobin 8.1 g/dL (12-16) L 08/07/25 13:54 Sodium 138.0 mmol/L (131-143) 08/07/25 13:54 Potassium 3.1 mmol/L (3.5-5.0) L 08/07/25 13:54 Glucose 109.0 mg/dL (70-115) 08/07/25 13:54 Ionized Calcium 1.1 mmol/L (1.1-1.4) 08/07/25 13:54 O2 Delivery Device Room air 08/07/25 13:54 FiO2 21.0 % 08/07/25 13:54 Executive Housekeeper ID Monro 08/07/25 13:54 Sodium 138 mmol/L (136-145) 08/07/25 13:20 Potassium 3.6 mmol/L (3.5-5.1) 08/07/25 13:20 Chloride 104 mmol/L (98-107) 08/07/25 13:20 Carbon Dioxide 23 mmol/L (22-29) 08/07/25 13:20 Anion Gap 14.6 (5-19) 08/07/25 13:20 BUN 9 mg/dL (6-20) 08/07/25 13:20 Creatinine 1.0 mg/dL (0.5-0.9) H 08/07/25 13:20 GFR Calculation 60.0 mL/min (90-130) L 08/07/25 13:20 Glucose 259 mg/dL (65-115) H 08/07/25 13:20 Calculated Osmolality 294 mOsm/kg (285-295) 08/07/25 13:20 Lactic Acid 5.5 mmol/L (0.5-2.2) H* 08/07/25 13:20 Calcium 8.2 mg/dL (8.5-10.5) L 08/07/25 13:20 Total Bilirubin 0.2 mg/dL (0.15-1.2) 08/07/25 13:20 AST 14 U/L (0-32) 08/07/25 13:20 ALT 9 U/L (0-33) 08/07/25 13:20 Alkaline Phosphatase 75 U/L (35-105) 08/07/25 13:20 Total Protein 5.9 g/dL (6.6-8.7) L 08/07/25 13:20 Albumin 3.2 g/dL (3.5-5.2) L 08/07/25 13:20 Globulin 2.7 g/dL (1.3-4.6) 08/07/25 13:20 Salicylates < 0.3 mg/dL (3-10) L 08/07/25 13:20 Acetaminophen < 5.0 ug/mL (10-30) L 08/07/25 13:20 Ethyl Alcohol < 10 mg/dL (0-10) 08/07/25 13:20 Serum Ketones Negative (Negative) 08/07/25 13:20 Blood Type O Negative 08/07/25 14:23 Rho(D) Type Rh negative 08/07/25 14:23 Antibody Screen Negative 08/07/25 14:23 Crossmatch See Detail 08/07/25 14:23 Discharge Plan Discharge Patient Disposition: Xfer Short-Term Hosp Clinical Impression: Major laceration of spleen, initial encounter, Intra-abdominal bleeding, Fall on same level from tripping Condition: Stable Referrals: Devika Garcia FNP-C [Primary Care Provider, Nurse Practitioner] Print Language: Malian Coding Level of Care Code ED Grants Analyst for Conrad Lilly
[2025-08-07 13:09] VITALS: BP 66/49; PULSE 89; RESP 18; TEMP 36.7; O2SAT 100; BMI 29.0
--- NOTE | 2025-08-07 13:09 | XR_ITS ---
WS: [id number] Portable AP upright chest, 08/07/2025 Clinical Data: trauma Comparison: None. Findings: There is a minimal right lower lobe opacity which probably represents atelectasis or less likely pneumonia. No nodules, masses or effusions are seen. The heart is normal. The pulmonary vascularity is not increased. No pneumothorax is seen. The aortic arch and descending thoracic aorta show mild tortuosity. There is an anterior cervical disc fusion. XR/XR chest 1V portable 20500 Impression: 1. Minimal right lower lobe opacity. 2. Atherosclerosis.
--- NOTE | 2025-08-07 13:09 | CT_ITS ---
WS: [id number] CT CHEST, ABDOMEN, AND PELVIS TECHNIQUE: Contrast-enhanced CT of the chest, abdomen, and pelvis with coronal and sagittal reformatted images. CLINICAL INFORMATION: fall/trauma; hypotension COMPARISON: None. DLP: 1668.[address] scans at [facility] use at least one of these dose optimization techniques: automated exposure control; mA and/or kV adjustment per patient size (includes targeted exams where dose is matched to clinical indication); or iterative reconstruction. CT CHEST: Some images degraded by motion artifact. Lungs are well aerated. No pneumothorax. Slight atelectasis RIGHT lower lobe. No definite visualized rib fractures considering motion artifact. Normal caliber thoracic aorta. CT ABDOMEN AND PELVIS: Some images degraded by motion artifact. Grade 4 splenic laceration with surrounding fluid and blood products. Some high attenuation blood products with evidence of active hemorrhage. Moderate to large amount of blood products in the abdomen and pelvis. Small amount of fluid or blood products about the liver. Increased attenuation blood products in the anterior peritoneum and LEFT paracolic gutter. No definite rib fractures overlying the spleen. Fluid within the stomach. Portal vein and splenic vein are patent. Normal pancreatic parenchymal enhancement. Normal caliber abdominal aorta. Grade 1 anterolisthesis L4 on L5. CT/CT chest abdpel w/*[id number] IMPRESSION: Some images degraded by motion and respiratory artifact. 1. High-grade at least grade 4 splenic laceration with devascularized shattere d anterior spleen. Main splenic artery appears intact. Perisplenic hematoma wit h high attenuation blood products about the anterior spleen extending to the pa racolic gutter with areas of active hemorrhage. 2. Large amount of hematoma in the pelvis. Small amount of fluid or hematoma a bout the liver. 3. No definite visualized rib fractures overlying the spleen. 4. No pneumothorax. Notified KAYTA Clemens at 08/07/2025 215 PM.
--- OUTSIDE RECORDS SUMMARY | 2025-08-07 13:10 | XMS_ITS | Encounter Summary ---
Author Organization [facility] Address [address] [place] [address] Care Team Providers Care Flight Information Expediter Name Role Phone Israel Guardado MD Primary Care Provider [phone] Encounter Details Date Type Department Care Team (Late st Contact Info) Description 03/17/2022 Lab Requisition [facility] Laboratory Services [address] [place] [address] Catarino Harrington, DMITRY [address] [address] Social History Tobacco Use Types Packs/Day Years Used Date Smoking Tobacco: Every Day Cigarettes Last attempted to quit: 06/18/2009 Smokeless Tobacco: Never Alcohol Use Standard Drinks/Week Comments No 0 (1 standard drink = 0.6 oz pur e alcohol) Comments Unknown Sex and Gender Information Value Date Recorded Sex Assigned at Not on file 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 Gender Identity Not on file Sexual Orientation Not on file documented as of this encounter Plan of Treatment Not on file documented as of this encounter Procedures Procedure Name Priority Date/Time Associated Diagnosis Comments C-REACTIVE PROTEIN Routine 03/17/2022 1: 30 AM CDT COMPREHENSIVE METABOLIC PANEL Routine 03/17/2022 1:30 AM CDT documented in this encounter Results * C-REACTIVE PROTEIN (03/17/2022 1:30 AM CDT) CRP <3.0 0.0 - 5.0 mg/L 03/17/2022 9:14 AM CDT [facility] Blood Collection / Unknown 03/17/2022 1:30 AM CDT 03/17/2022 8:55 AM CDT Catarino Harrington NP CHEMISTRY ORDERABLES Fin al Result [facility] # [id number] [facility] [address] * (ABNORMAL) COMPREHENSIVE METABOLIC PANEL (03/17/2022 1:30 AM CDT) Pathologist [facility] SODIUM 143 136 - 145 mmol/L 03/17/2022 9:14 AM CDT [facility] POTASSIUM 4.3 3.5 - 5.1 mmol/L 03/17/2022 9:14 AM CDT [facility] CHLORIDE 107 98 - 107 mmol/L 03/17/2022 9:14 AM CDT [facility] CO2 26 22 - 29 mmol/L 03/17/2022 9:14 AM CDT [facility] CALCIUM 8.8 8.6 - 10.0 mg/dL 03/17/2022 9:14 AM CDT [facility] BUN 21(H) 6 - 20 mg/dL 03/17/2022 9:14 AM T [facility] CREATININE 0.49(L) 0.51 - 0.95 mg/dL 03/17/2022 9:14 AM CDT [facility] GLUCOSE 87 74 - 99 mg/dL 03/17/2022 9:14 AM CDT [facility] TOTAL PROTEIN 5.8(L) 6.4 - 8.3 g/dL 03/17/2022 9:14 AM CDT [facility] ALBUMIN 3.4(L) 3.5 - 5.2 g/dL 03/17/2022 9:14 AM [facility] BILIRUBIN TOTAL <0.2(L) 0.2 - 1.0 mg/dL 03/17/2022 9:14 AM [facility] ALKALINE PHOSPHATASE 80 35 - 104 U/L 03/17/2022 9:14 AM [facility] AST 17 10 - 35 U/L 03/17/2022 9:14 AM [facility] ALT 6 <=35 U/L 03/17/2022 9:14 AM [facility] GFR >60 >=60 mL/min/1. 73 sq meter 03/17/2022 9:14 AM [facility] Comment: eGFR calculated with 2020 CKD-EPI equation. Vegetarian diet, extremely high or low muscle mass, and may affect results. Cystatin C with Glomerular Filtration Rate is a suitable alternative for these patients. The National Kidney Foundation and the [place] Society of Nephrology (NKF-ASN) recommends using the 2020 CKD Epidemiology Collaboration (CKD-EPI) equation to calculate estimated glomerular filtration rate (eGFR). This equation is only applicable to [place] adult patients and removes race as a variable. Due to the variation of creatinine in different conditions, they recommend use of confirmatory tests such as eGFR from cystatin C or creatinine-cystatin GFR estimating equations, or direct measurement of clearance of an exogenous filtration marker in critical clinical decisions including but not limited to drug dosing, surgery, chemotherapy, and transplant referral. ANION GAP 10 9 - 20 mmol/L 03/17/2022 9:14 AM T [facility] Blood Collection / Unknown 03/17/2022 1:30 AM CDT 03/17/2022 8:55 AM CDT us Catarino Harrington NP CHEMISTRY ORDERABLES Fin al Result [facility] CLIA # [id number] [address] [place] [id number] documented in this encounter Visit Diagnoses Not on filedocumented in this encounter Care Teams Flight Information Expediter Relationship Specialty Start Date End Date Israel Guardado MD [address] [address] PCP - General Family Practice 03/19/23 documented as of this encounter
--- OUTSIDE RECORDS SUMMARY | 2025-08-07 13:10 | XMS_ITS | Encounter Summary ---
Author Organization [facility] Address [address] [place] [address] Care Team Providers Care Buzzle Buffer Name Role Phone Yi Anglin MD Primary Care Provider Encounter Details Date Type Department Care Team (Latest Contact Info) Description 12/30/2002 Outpatient Historical [facility] Family Medicine- [address] [place] [address] Alondra Parker MD NO ADDRESS ON FILE ACUTE PHARYNGITIS (Primary Dx); ACUTE BRONCHITIS Social History Tobacco Use Types Packs/Day Years Used Date Smoking Tobacco: Never Assessed Comments Unknown Sex and Gender Information Value Date Recorded Sex Assigned at Not on file 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
--- OUTSIDE RECORDS SUMMARY | 2025-08-07 13:10 | XMS_ITS | Encounter Summary ---
Author Organization [facility] Address [address] [place] [address] Care Team Providers Care Bilingual Medical Receptionist Name Role Phone Yi Anglin MD Primary Care Provider Encounter Details Date Type Department Care Team (Latest Contact Info) Description 10/04/2003 Outpatient Historical [facility] Family Medicine- [address] [place] [phone] José Miguel Bess, NO ADDRESS ON FILE DEPRESSIVE DISORDER NEC (Primary Dx) Social History Tobacco Use Types Packs/Day Years Used Date Smoking Tobacco: Never Assessed Comments Unknown Sex and Gender Information Value Date Recorded Sex Assigned at Not on file 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
--- OUTSIDE RECORDS SUMMARY | 2025-08-07 13:10 | XMS_ITS | Clinical Summary ---
Demographics Address [address] [place] [address].[address] [place] [address] Home Phone Preferred Language Martiniquais Marital Status Episcopalian Affiliation Unknown Race White Ethnic Group Not or Lati no Author Organization [facility] Address [address] [place] [address] Care Team Providers Care Individual Small Group Instructor Name Role Phone Yi Anglin MD Primary Care Provider [phone] Allergies Active Allergy Reactions Criticality Noted Date Comments Sulfa (Sulfonamide Antibiotics) Other (See Comments) 10/16/2009 Cant remember in childhood Medications gabapentin (NEURONTIN) 100 mg capsule Take 100 mg by mouth 3 times daily. Active valACYclovir (VALTREX) 500 mg tablet Take 500 mg by mouth 3 times daily. Active HYDROcodone-acet aminophen (NORCO) 5-325 mg tablet Take 1 Tablet by mouth every 6 hours as needed for Pain, Moderate. Active predniSONE (DELTASONE) 10 mg tablet 3 per day for 3 days then 2 per day for 3 days then 1 per day for 3 days. 18 Tablet 11/18/2017 Active Active Problems Problem Noted Date Diagnosed Date Tobacco use 02/22/2016 Immunizations Immunization Administration Dates Next Due (ADACEL/BOOSTRIX)(10 YR UP) TDAP VACCINE, 0.5ML, IM 01/30/2019 Family History Medical History Relation Name Comments Diabetes Father Diabetes Maternal Grandmother Diabetes Paternal Grandmother Relation Name Status Comments Father Alive Maternal Grandmother Mother Alive Paternal Grandmother Sister Alive Social History Tobacco Use Types Packs/Day Years Used Date Smoking Tobacco: Every Day Cigarettes 0.5 3 Started: 06/18/2006; Last attempted to quit: 06/18/2009 Smokeless Tobacco: Never Alcohol Use Standard Drinks/Week Comments No 0 (1 standard drink = 0.6 oz pur e alcohol) Comments No Sex and Gender Information Value Date Recorded Sex Assigned at Not on file 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 Gender Identity Not on file Sexual Orientation Not on file Occupation Industry Job Start Date Job End Date Not on file Not on file Not on file Not on file Last Filed Vital Signs Vital Sign Reading Time Taken Comments Blood Pressure 138/92 01/30/2019 5:15 AM BACK STAYER Pulse 80 11/18/2017 3:35 PM BACK STAYER Temperature 35.6 C (96.1 F) 01/30/2019 5:15 AM BACK STAYER Respiratory Rate 18 01/30/2019 5:15 AM BACK STAYER Oxygen Saturation 98% 01/30/2019 5:15 AM BACK STAYER Inhaled Oxygen Concentration - - Weight 78.7 kg (173 lb 9.6 oz) 01/30/2019 4:09 A M BACK STAYER Height 172.7 cm (5' 8 ) 01/30/2019 4:09 AM BACK STAYER Body Mass Index 26.4 01/30/2019 4:09 AM BACK STAYER Plan of Treatment Health Maintenance Due Date Last Done Comments Pre-Diabetes and Diabetes Screening 1980 HEPATITIS B VACCINES (1 of 3 - 19+ 3-dose series) 03/31 Preventative Visit-Managed Medicaid 1999 HPV/Cotest (21-29) 2001 HPV VACCINES (1 - 3-dose SCDM series) 2007 CERVICAL CANCER SCREENING 2010 HPV/Cotest (30-65) 2010 PAP SMEAR 2010 BREAST CANCER SCREENING 2020 COLORECTAL SCREENING 2025 Colorectal Cancer Screening 2025 FIT-DNA Q 3 years 2025 FIT/FOBT Q 1 year 2025 Flex Sig/CT Colonography Q 5 years 2025 INFLUENZA VACCINE (#1) 2025 DTAP/TDAP/TD VACCINES (2 - Td or Tdap) 01/30/[address] [place] [address] [place] [address] Care Teams Individual Small Group Instructor Relationship Specialty Start Date End Date Yi Anglin MD [address] [address] PCP - General Family Practice 11/20/17
--- OUTSIDE RECORDS SUMMARY | 2025-08-07 13:10 | XMS_ITS | Encounter Summary ---
Author Organization [facility] Address [address] [place] [address] Care Team Providers Care Restaurant Hourly Manager Name Role Phone Israel Guardado MD Primary Care Provider [phone] Encounter Details Date Type Department Care Team (Late st Contact Info) Description 08/01/2025 External Device Data [facility] ABSTRACTION Provider, Abstract NO ADDRESS ON FILE Social History Tobacco Use Types Packs/Day Years Used Date Smoking Tobacco: Every Day Cigarettes Smokeless Tobacco: Never Alcohol Use Standard Drinks/Week Comments No 0 (1 standard drink = 0.6 oz pur e alcohol) Feeling Safe Answer Date Recorded Are you in a relationship wi th someone who hurts you emotionally and/or physically? 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
--- OUTSIDE RECORDS SUMMARY | 2025-08-07 13:10 | XMS_ITS | Encounter Summary ---
Author Organization [facility] Address [address] [place] [address] Care Team Providers Care Forming Operator Name Role Phone Israel Guardado MD Primary Care Provider [phone] Encounter Details Date Type Department Care Team (Late st Contact Info) Description 03/24/2022 Lab Requisition [facility] Laboratory Services [address] [place] [address] [facility], External Provider [address] [place] [address] Social History Tobacco Use Types Packs/Day Years Used Date Smoking Tobacco: Every Day Cigarettes Last attempted to quit: 06/18/2009 Smokeless Tobacco: Never Alcohol Use Standard Drinks/Week Comments No 0 (1 standard drink = 0.6 oz pur e alcohol) Comments Unknown Sex and Gender Information Value Date Recorded Sex Assigned at Not on file 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 Gender Identity Not on file Sexual Orientation Not on file documented as of this encounter Plan of Treatment Not on file documented as of this encounter Procedures Procedure Name Priority Date/Time Associated Diagnosis Comments CBC WITH DIFFERENTIAL Routine 03/24/2022 3:30 AM CDT SEDIMENTATION RATE Routine 03/24/2022 3: 30 AM CDT C-REACTIVE PROTEIN Routine 03/24/2022 3: 30 AM CDT COMPREHENSIVE METABOLIC PANEL Routine 03/24/2022 3:30 AM CDT documented in this encounter Results * SEDIMENTATION RATE (03/24/2022 3:30 AM CDT) [facility] ESR (SEDIMENTATION RATE) 7 0 - 20 mm/Hr 03/24/2022 9:17 AM CDT [facility] Blood Collection / Unknown 03/24/2022 3:30 AM CDT 03/24/2022 8:15 AM CDT External Provider [facility] HEMATOLOGY ORDERABLES Trudy l Result [facility] CLIA # [id number] [address] [id number] * C-REACTIVE PROTEIN (03/24/2022 3:30 AM CDT) [facility] CRP <3.0 0.0 - 5.0 mg/L 03/24/2022 9:11 AM CDT [facility] Blood Collection / Unknown 03/24/2022 3:30 AM CDT 03/24/2022 8:13 AM CDT us External Provider [facility] CHEMISTRY ORDERABLES Final Result [facility] CLIA # [id number] [address] [id number] * (ABNORMAL) CBC WITH DIFFERENTIAL (03/24/2022 3:30 AM CDT) [facility] WBC 3.8(L) 4.5 - 11.0 K/uL 03/24/2022 8:22 AM CDT [facility] RBC 4.43 4.20 - 5.40 M/uL 03/24/2022 8:22 AM [facility] HEMOGLOBIN 12.4 12.0 - 16.0 g/dL 03/24/2022 8:22 AM [facility] HEMATOCRIT 38.8 36.0 - 46.0 % 03/24/2022 8:22 AM [facility] MCV 87.6 84.0 - 103.0 fL 03/24/2022 8:22 AM [facility] MCH 28.0 27.0 - 34.0 pg 03/24/2022 8:22 AM [facility] MCHC 32.0 30.0 - 35.0 g/dL 03/24/2022 8:22 AM [facility] RDW 15.2(H) 11.0 - 14.5 % 03/24/2022 8:22 AM [facility] RDW-STDEV 48.9 37.0 - 54.0 fL 03/24/2022 8:22 AM [facility] PLATELETS 157 140 - 440 K/uL 03/24/2022 8:22 AM [facility] MPV 9.9 8.9 - 12.8 fL 03/24/2022 8:22 AM [facility] NEUTROPHILS 42 42 - 75 % 03/24/2022 8:22 AM [facility] LYMPHOCYTES 40 24 - 44 % 03/24/2022 8:22 AM [facility] MONOCYTES 14(H) 2 - 10 % 03/24/2022 8:22 AM [facility] EOSINOPHILS 3 0 - 7 % 03/24/2022 8:22 AM [facility] BASOPHILS 0 0 - 1 % 03/24/2022 8:22 AM [facility] IMMATURE GRANULOCYTES 0 0 - 2 % 03/24/2022 8:22 AM [facility] NEUTROPHIL ABSOLUTE 1.59(L) 2.00 - 8.00 K/uL 03/24/2022 8:22 AM [facility] LYMPHOCYTE ABSOLUTE 1.52 1.20 - 4.00 K/uL 03/24/2022 8:22 AM CDT [facility] MONOCYTE ABSOLUTE 0.52 0.10 - 0.60 K/uL 03/24/2022 8:22 AM CDT [facility] EOSINOPHIL ABSOLUTE 0.13 0.00 - 0.70 K/uL 03/24/2022 8:22 AM CDT [facility] BASOPHILS ABSOLUTE 0.01 0.00 - 0.20 K/uL 03/24/2022 8:22 AM CDT [facility] IMMATURE GRANULOCYTES ABSOLUTE 0.00 0.00 - 0.10 K/uL 03/24/2022 8:22 AM CDT [facility] Blood Collection / Unknown 03/24/2022 3:30 AM CDT 03/24/2022 8:15 AM CDT us External Provider [facility] HEMATOLOGY ORDERABLES Trudy gutierrez Result Performing Organization Address City/State/[facility] Co de Phone Number [facility] CLIA # [id number] [facility] [address] * (ABNORMAL) COMPREHENSIVE METABOLIC PANEL (03/24/2022 3:30 AM CDT) SODIUM 144 136 - 145 mmol/L 03/24/2022 9:11 AM CDT [facility] POTASSIUM 3.9 3.5 - 5.1 mmol/L 03/24/2022 9:11 AM CDT [facility] CHLORIDE 108(H) 98 - 107 mmol/L 03/24/2022 9:11 AM CDT [facility] CO2 27 22 - 29 mmol/L 03/24/2022 9:11 AM CDT [facility] CALCIUM 9.2 8.6 - 10.0 mg/dL 03/24/2022 9:11 AM CDT [facility] BUN 15 6 - 20 mg/dL 03/24/2022 9:11 AM CDT [facility] CREATININE 0.44(L) 0.51 - 0.95 mg/dL 03/24/2022 9:11 AM [facility] GLUCOSE 83 74 - 99 mg/dL 03/24/2022 9:11 AM [facility] TOTAL PROTEIN 6.3(L) 6.4 - 8.3 g/dL 03/24/2022 9:11 AM [facility] ALBUMIN 3.7 3.5 - 5.2 g/dL 03/24/2022 9:11 AM [facility] BILIRUBIN TOTAL 0.2 0.2 - 1.0 mg/dL 03/24/2022 9:11 AM [facility] ALKALINE PHOSPHATASE 73 35 - 104 U/L 03/24/2022 9:11 AM [facility] AST 20 10 - 35 U/L 03/24/2022 9:11 AM [facility] ALT 6 <=35 U/L 03/24/2022 9:11 AM [facility] GFR >60 >=60 mL/min/1. 73 sq meter 03/24/2022 9:11 AM [facility] Comment: eGFR calculated with 2020 CKD-EPI equation. Vegetarian diet, extremely high or low muscle mass, and may affect results. Cystatin C with Glomerular Filtration Rate is a suitable alternative for these patients. The National Kidney Foundation and the [place] [employer] of Nephrology (NKF-ASN) recommends using the [...] surgery, chemotherapy, and transplant referral. ANION GAP 9 9 - 20 mmol/L 03/24/2022 9:11 AM [facility] Blood Collection / Unknown 03/24/2022 3:30 AM T 03/24/2022 8:13 AM CDT External Provider [facility] CHEMISTRY ORDERABLES Final Result [facility] # [id number] [address] [facility] [place] [address] documented in this encounter Visit Diagnoses Not on filedocumented in this encounter Care Teams Forming Operator Relationship Specialty Start Date End Date Israel Guardado MD [address] [facility] [address] [place] [address] PCP - General Family Practice 03/19/23 documented as of this encounter
--- OUTSIDE RECORDS SUMMARY | 2025-08-07 13:10 | XMS_ITS | Encounter Summary ---
Author Organization [facility] Address [address] [place] [address] Care Team Providers Care Operations Officer Name Role Phone Israel Guardado MD Primary Care Provider [phone] Encounter Details Date Type Department Care Team (Late st Contact Info) Description 02/25/2022 Lab Requisition [facility] Laboratory Services [address] [place] [address] Quique Barker MD [address] [place] [address] Social History Tobacco Use Types Packs/Day Years Used Date Smoking Tobacco: Every Day Cigarettes Last attempted to quit: 06/18/2009 Smokeless Tobacco: Never Alcohol Use Standard Drinks/Week Comments No 0 (1 standard drink = 0.6 oz pur e alcohol) Comments Unknown Sex and Gender Information Value Date Recorded Sex Assigned at Not on file 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 No / Unsure 01/30/2022 12:16 PM HEEL SCORER documented as of this encounter Plan of Treatment Not on file documented as of this encounter Procedures Procedure Name Priority Date/Time Associated Diagnosis Comments COMPREHENSIVE METABOLIC PANEL Routine 02/25/2022 3:05 AM CDT documented in this encounter Results * (ABNORMAL) COMPREHENSIVE METABOLIC PANEL (02/25/2022 3:05 AM CDT) [facility] Signature SODIUM 139 136 - 145 mmol/L 02/25/2022 6:29 AM [facility] POTASSIUM 4.5 3.5 - 5.1 mmol/L 02/25/2022 6:29 AM [facility] CHLORIDE 103 98 - 107 mmol/L 02/25/2022 6:29 AM [facility] CO2 26 22 - 29 mmol/L 02/25/2022 6:29 AM [facility] CALCIUM 9.0 8.6 - 10.0 mg/dL 02/25/2022 6:29 AM [facility] BUN 14 6 - 20 mg/dL 02/25/2022 6:29 AM [facility] CREATININE 0.39(L) 0.51 - 0.95 mg/dL 02/25/2022 6:29 AM [facility] GLUCOSE 103(H) 74 - 99 mg/dL 02/25/2022 6:29 AM [facility] TOTAL PROTEIN 6.5 6.4 - 8.3 g/dL 02/25/2022 6:29 AM [facility] ALBUMIN 3.3(L) 3.5 - 5.2 g/dL 02/25/2022 6:29 AM [facility] BILIRUBIN TOTAL 0.2 0.2 - 1.0 mg/dL 02/25/2022 6:29 AM [facility] ALKALINE PHOSPHATASE 93 35 - 104 U/L 02/25/2022 6:29 AM [facility] AST 14 10 - 35 U/L 02/25/2022 6:29 AM [facility] ALT 6 <=35 U/L 02/25/2022 6:29 AM [facility] GFR >60 >=60 mL/min/1. 73 sq meter 02/25/2022 6:29 AM [facility] Comment: eGFR calculated with 2020 CKD-EPI equation. Vegetarian diet, extremely high or low muscle mass, and may affect results. Cystatin C with Glomerular Filtration Rate is a suitable alternative for these patients. The National Kidney Foundation and the [place] Society of Nephrology (NKF-ASN) recommends using the [...] ANION GAP 10 9 - 20 mmol/L 02/25/2022 6:29 AM CDT [facility] Blood Collection / Unknown 02/25/2022 3:05 AM CDT 02/25/2022 6:12 AM CDT Quique Barker MD CHEMISTRY ORDERABLES Trudy l Result [facility] [employer] [facility] CLIA # [id number] [address] documented in this encounter Visit Diagnoses Not on filedocumented in this encounter Care Teams Operations Officer Relationship Specialty Start Date End Date Israel Guardado MD [address] [facility] [address] [place] [address] PCP - General Family Practice 03/19/23 documented as of this encounter
--- OUTSIDE RECORDS SUMMARY | 2025-08-07 13:10 | XMS_ITS | Encounter Summary ---
Author Organization [facility] Address [address] [place] [address] Care Team Providers Care Middle School Counselor Name Role Phone Yi Anglin MD Primary Care Provider Encounter Details Date Type Department Care Team (Latest Contact Info) Description 10/07/2005 Outpatient Historical 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
--- OUTSIDE RECORDS SUMMARY | 2025-08-07 13:10 | XMS_ITS | Encounter Summary ---
Author Organization [facility] Address [address] [place] [address] Care Team Providers Care Softball Player Name Role Phone Yi Anglin MD Primary Care Provider Encounter Details Date Type Department Care Team (Latest Contact Info) Description 08/21/2005 Outpatient Historical [facility] Medicine [place] [address] [address] Rodney Johnson NP NO ADDRESS ON FILE ANXIETY STATE NOS (Primary Dx); DEPRESSIVE DISORDER NEC; DERMATITIS NOS Social History Tobacco Use Types Packs/Day Years Used Date Smoking Tobacco: Never Assessed Comments Unknown Sex and Gender Information Value Date Recorded Sex Assigned at Not on file Legal Sex Female 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
--- OUTSIDE RECORDS SUMMARY | 2025-08-07 13:10 | XMS_ITS | Encounter Summary ---
Author Organization [facility] Address [address] [place] [address] Care Team Providers Care Corporate Administrative Assistant Name Role Phone Yi Anglin MD Primary Care Provider [phone] Encounter Details Date Type Department Care Team (Latest Contact Info) Description 02/16/2006 Outpatient Historical [facility] Family Medicine- [address] [place] [phone] Alondra Parker MD NO ADDRESS ON FILE Acute Bronchitis (Primary Dx); Obsessive-Compulsive Disorders; Anxiety State, Unspecified Social History Tobacco Use Types Packs/Day Years Used Date Smoking Tobacco: Never Assessed Comments Unknown Sex and Gender Information Value Date Recorded Sex Assigned at Not on file 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
--- OUTSIDE RECORDS SUMMARY | 2025-08-07 13:10 | XMS_ITS | Encounter Summary ---
Author Organization [facility] Address [address] [place] [address] Care Team Providers Care Review Analyst Name Role Phone Israel Guardado MD Primary Care Provider [phone] Encounter Details Date Type Department Care Team (Late st Contact Info) Description 03/17/2022 Lab Requisition [facility] Laboratory Services [address] [place] [address] Quique Barker MD [address] [place] [address] Social History Tobacco Use Types Packs/Day Years Used Date Smoking Tobacco: Every Day Cigarettes Last attempted to quit: 06/18/2009 Smokeless Tobacco: Never Alcohol Use Standard Drinks/Week Comments No 0 (1 standard drink = 0.6 oz pur e alcohol) Comments Unknown Sex and Gender Information Value Date Recorded Sex Assigned at Not on file 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 Gender Identity Not on file Sexual Orientation Not on file documented as of this encounter Plan of Treatment Not on file documented as of this encounter Procedures Procedure Name Priority Date/Time Associated Diagnosis Comments CBC WITH DIFFERENTIAL Routine 03/17/2022 10:50 AM CDT documented in this encounter Results * (ABNORMAL) CBC WITH DIFFERENTIAL (03/17/2022 10:50 AM CDT) WBC 4.3(L) 4.5 - 11.0 K/uL 03/17/2022 12:34 PM [facility] RBC 4.45 4.20 - 5.40 M/uL 03/17/2022 12:34 PM [facility] HEMOGLOBIN 12.7 12.0 - 16.0 g/dL 03/17/2022 12:34 PM [facility] HEMATOCRIT 40.1 36.0 - 46.0 % 03/17/2022 12:34 PM [facility] MCV 90.1 84.0 - 103.0 fL 03/17/2022 12:34 PM [facility] MCH 28.5 27.0 - 34.0 pg 03/17/2022 12:34 PM [facility] MCHC 31.7 30.0 - 35.0 g/dL 03/17/2022 12:34 PM [facility] RDW 15.2(H) 11.0 - 14.5 % 03/17/2022 12:34 PM [facility] RDW-STDEV 50.0 37.0 - 54.0 fL 03/17/2022 12:34 PM [facility] PLATELETS 179 140 - 440 K/uL 03/17/2022 12:34 PM [facility] MPV 9.9 8.9 - 12.8 fL 03/17/2022 12:34 PM [facility] NEUTROPHILS 47 42 - 75 % 03/17/2022 12:34 PM [facility] LYMPHOCYTES 37 24 - 44 % 03/17/2022 12:34 PM [facility] [employer] [facility] MONOCYTES 12(H) 2 - 10 % 03/17/2022 12:34 PM [facility] EOSINOPHILS 3 0 - 7 % 03/17/2022 12:34 PM [facility] [employer] [facility] BASOPHILS 0 0 - 1 % 03/17/2022 12:34 PM [facility] IMMATURE GRANULOCYTES 0 0 - 2 % 03/17/2022 12:34 PM CDT [facility] NEUTROPHIL ABSOLUTE 2.01 2.00 - 8.00 K/uL 03/17/2022 12:34 PM CDT [facility] LYMPHOCYTE ABSOLUTE 1.59 1.20 - 4.00 K/uL 03/17/2022 12:34 PM CDT [facility] MONOCYTE ABSOLUTE 0.51 0.10 - 0.60 K/uL 03/17/2022 12:34 PM CDT [facility] EOSINOPHIL ABSOLUTE 0.12 0.00 - 0.70 K/uL 03/17/2022 12:34 PM CDT [facility] BASOPHILS ABSOLUTE 0.01 0.00 - 0.20 K/uL 03/17/2022 12:34 PM CDT [facility] IMMATURE GRANULOCYTES ABSOLUTE 0.01 0.00 - 0.10 K/uL 03/17/2022 12:34 PM CDT [facility] Blood Collection / Unknown 03/17/2022 10:50 AM CDT 03/17/2022 12:28 PM CDT Quique Barker MD HEMATOLOGY ORDERABLES Fin al Result [facility] CLIA # [id number] [address] [address] documented in this encounter Visit Diagnoses Not on filedocumented in this encounter Care Teams Review Analyst Relationship Specialty Start Date End Date Israel Guardado MD [address] [phone] PCP - General Family Practice 03/19/23 documented as of this encounter
--- OUTSIDE RECORDS SUMMARY | 2025-08-07 13:10 | XMS_ITS | Clinical Summary ---
Author Organization [facility] Address [address] [place] [address] Care Team Providers Care Supervisor [employer] Name Role Phone Israel Guardado MD Primary Care Provider [phone] Allergies Active Allergy Reactions Criticality Noted Date Comments Sulfa (Sulfonamide Antibiotics) Other (See Comments) 10/16/2009 Cant remember in childhood Medications baclofen (LIORESAL) 20 mg tabletIndication s:Spastic quadriparesis (CMS/HCC),Injury of cervical spinal cord, subsequent encounter (CMS/HCC),Spinal stenosis, cervical region Take 1 Tablet (20 mg) by mouth 3 times daily as needed for Pain (Spasm). 90 Tablet 1 024 Active Additional Information Patient not taking.Reported on 06/21/2025 HYDROcodone-acet aminophen (NORCO) 5-325 mg tabletIndication s:Chronic midline low back pain without sciatica Take 1-2 Tablets by mouth every 6 hours as needed for Pain. Max Daily Amount: 8 Tablets 30 Tablet 024 Active Additional Information Patient not taking.Reported on 06/21/2025 aspirin (ECOTRIN EC) 81 mg Tablet, Delayed Release (E.C.) Take 1 Tablet (81 mg) by mouth daily. 90 Tablet 3 025 Active gabapentin (NEURONTIN) 300 mg capsuleIndicatio ns:Spastic quadriparesis (CMS/HCC),Injury of cervical spinal cord, subsequent encounter (CMS/HCC),Spinal stenosis, cervical region Take 1 Capsule (300 mg) by mouth 3 times daily. 270 Capsule 3 Active QUEtiapine (SEROquel) 300 mg tabletIndication s:Spastic quadriparesis (CMS/HCC),Injury of cervical spinal cord, subsequent encounter (CMS/HCC),Spinal stenosis, cervical region Take 2 Tablets (600 mg) by mouth daily. 180 Tablet 3 Active ibuprofen (MOTRIN) 800 mg tablet Take 1 Tablet (800 mg) by mouth every 6 hours as needed for Pain, Mild. 30 Tablet 1 Active Zepbound 2.5 mg/0.5 mL Pen InjectorIndicati ons:Obesity (BMI 30.0-34.9) INJECT 2.5 MG SUBCUTANEOUSLY EVERY 7 DAYS 4 mL Active tirzepatide, weight loss, (Zepbound) 2.5 mg/0.5 mL Pen InjectorIndicati ons:Obesity (BMI 30.0-34.9) Inject 0.5 mL (2.5 mg) by subcutaneous injection every 7 days. 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 Muscle spasticity 03/31/2022 Neuropathic pain 03/31/2022 Tobacco use 02/22/2016 Leukopenia Resolved Problems Problem Noted Date Diagnosed Date Resolved Date Neurogenic bladder 03/31/2022 Neurogenic bowel 03/31/2022 03/19/2023 Encounters Date Type Department Care Team Description 08/01/2025 External Device Data [facility] ABSTRACTION Provider, Abstract 08/01/2025 External Device Data [facility] ABSTRACTION Provider, Abstract 07/25/[address] [address] Ector, Crystal Melissa, SHAKE OUT WORKER Obesity (BMI 30.0-34.9) 07/18/2025 External Device Data [facility] ABSTRACTION Provider, Abstract 07/04/2025 External Device Data [facility] ABSTRACTION Provider, Abstract 07/03/[address] [address] EctorOlga, SHAKE OUT WORKER Referral (Mammogram) 06/23/[address] [address] Israel Guardado MD Needs Form Or Letter Filled Out (PA) 06/21/2025 2:40 PM CDT Office Visit [address] [address] E[place] Olga Torres, SHAKE OUT WORKER Obesity (BMI 30.0-34.9) (Primary Dx); Encounter for colorectal cancer screening; Screening mammogram, encounter for; Spastic quadriparesis (CMS/HCC); Injury of cervical spinal cord, subsequent encounter (CMS/HCC); Spinal stenosis, cervical region; Benign hypertension 06/19/[address] [address] Israel Guardado MD Spastic quadriparesis (CMS/HCC); Injury of cervical spinal cord, subsequent encounter (CMS/HCC); Spinal stenosis, cervical region 06/15/2025 Orders Only [address] [address] Alda Jaimes RN Spastic quadriparesis (CMS/HCC); Injury of cervical spinal cord, subsequent encounter (CMS/HCC); Spinal stenosis, cervical region 06/15/[address] [address] Israel Guardado MD Clinical Consult Before Scheduling; Patient Communication 06/14/2025 External Device Data [facility] ABSTRACTION Provider, Abstract 06/14/2025 External Device Data [facility] ABSTRACTION Provider, Abstract 06/09/2025 Telephone [facility] Medicine [place] [address] [facility] [address] [place] [address] Israel Guardado MD Pharmacy Change 05/17/2025 External Device Data [facility] ABSTRACTION Provider, Abstract from Last 3 Months Immunizations Immunization Administration Dates Next Due (ADACEL/BOOSTRIX)(10 YR UP) TDAP VACCINE, 0.5ML, IM 01/30/2019 Family History Medical History Relation Name Comments Diabetes Father Diabetes Maternal Grandmother Diabetes Paternal Grandmother Relation Name Status Comments Father Alive Maternal Grandmother Mother Alive Paternal Grandmother Sister Alive Social History Tobacco Use Types Packs/Day Years Used Date Smoking Tobacco: Every Day Cigarettes Smokeless Tobacco: Never Tobacco Cessation:Ready to Q uit: No; Counseling Given: Yes Alcohol Use Standard Drinks/Week Comments No 0 (1 standard drink = 0.6 oz pur e alcohol) Feeling Safe Answer Date Recorded Are you in a relationship wi th someone who hurts you emotionally and/or physically? 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 Gender Identity Not on file Sexual Orientation Not on file Last Filed Vital Signs Vital Sign Reading Time Taken Comments Blood Pressure 108/74 06/21/2025 2:59 PM CDT Pulse 74 06/21/2025 2:59 PM CDT Temperature 36.3 C (97.3 F) 06/21/2025 2:59 PM CDT Respiratory Rate 18 06/21/2025 2:59 PM CDT Oxygen Saturation 97% 06/21/2025 2:59 PM CDT Inhaled Oxygen Concentration - - Weight 86.6 kg (191 lb) 06/21/2025 2:59 PM CDT Height 168.9 cm (5' 6.5 ) 06/21/2025 2:59 PM CDT Body Mass Index 30.37 06/21/2025 2:59 PM CDT Plan of Treatment Health Maintenance Due Date Last Done Comments Pre-Diabetes and Diabetes Screening 1980 HEPATITIS B VACCINES (1 of 3 - 19+ 3-dose series) 1999 Preventative Visit-Managed Medicaid 1999 HPV/Cotest (21-29) 2001 HPV VACCINES (1 - 3-dose SCD M series) 2007 CERVICAL CANCER SCREENING 2010 HPV/Cotest (30-65) 2010 PAP SMEAR 2010 BREAST CANCER SCREENING 2020 COLORECTAL SCREENING 2025 Colorectal Cancer Screening 2025 FIT-DNA Q 3 years 2025 FIT/FOBT Q 1 year 2025 Flex Sig/CT Colonography Q 5 years 2025 INFLUENZA VACCINE (#1) 2025 4, 04/14/2022, 04/14/2022, Additional history exists DTAP/TDAP/TD VACCINES (2 - T d or Tdap) 01/30/2029 01/30/2019 Insurance [place] Advance Directives For more information, please contact: [phone] * Full Code (Latest Code Status on File) Date Activated Date Inactivated Comments 03/31/2022 1:53 PM 04/09/2022 1:20 PM Care Teams Supervisor [employer]crete [employer] Relationship Specialty Start Date End Date Israel Guardado MD [address] [facility] [address] [place] [address] PCP - General Family Practice 03/19/23
--- OUTSIDE RECORDS SUMMARY | 2025-08-07 13:10 | XMS_ITS | Encounter Summary ---
Author Organization [facility] Address [address] [place] [address] Care Team Providers Care Bakery Decorator Name Role Phone Israel Guardado MD Primary Care Provider [phone] [phone] Encounter Details Date Type Department Care Team (Late st Contact Info) Description 03/31/2022 Lab Requisition [facility] Laboratory Services [address] [place] [address] [facility], External Provider [address] [place] [address] Social History Tobacco Use Types Packs/Day Years Used Date Smoking Tobacco: Every Day Cigarettes Last attempted to quit: 06/18/2009 Smokeless Tobacco: Never Alcohol Use Standard Drinks/Week Comments No 0 (1 standard drink = 0.6 oz pur e alcohol) Comments Unknown Sex and Gender Information Value Date Recorded Sex Assigned at Not on file 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 No / Unsure 04/02/2022 6:05 AM CDT documented as of this encounter Plan of Treatment Not on file documented as of this encounter Procedures Procedure Name Priority Date/Time Associated Diagnosis Comments CBC WITH DIFFERENTIAL Routine 03/31/2022 3:40 AM CDT SEDIMENTATION RATE Routine 03/31/2022 3: 40 AM CDT C-REACTIVE PROTEIN Routine 03/31/2022 3: 40 AM CDT COMPREHENSIVE METABOLIC PANEL Routine 03/31/2022 3:40 AM CDT documented in this encounter Results * SEDIMENTATION RATE (03/31/2022 3:40 AM CDT) [facility] ESR (SEDIMENTATION RATE) 8 0 - 20 mm/Hr 03/31/2022 8:55 AM CDT [facility] Blood Collection / Unknown 03/31/2022 3:40 AM CDT 03/31/2022 8:19 AM CDT External Provider [facility] HEMATOLOGY ORDERABLES Trudy l Result Performing Organization Address City/[facility]/ZIP Co de Phone Number [facility] CLIA # [id number] [address] [address] * C-REACTIVE PROTEIN (03/31/2022 3:40 AM CDT) [facility] CRP <3.0 0.0 - 5.0 mg/L 03/31/2022 8:50 AM CDT [facility] Blood Collection / Unknown 03/31/2022 3:40 AM CDT 03/31/2022 8:20 AM CDT External Provider [facility] CHEMISTRY ORDERABLES Final Result [facility] CLIA # [id number] [address] [address] * (ABNORMAL) CBC WITH DIFFERENTIAL (03/31/2022 3:40 AM CDT) [facility] WBC 4.1(L) 4.5 - 11.0 K/uL 03/31/2022 8:25 AM [facility] RBC 4.08(L) 4.20 - 5.40 M/uL 03/31/2022 8:25 AM [facility] HEMOGLOBIN 11.8(L) 12.0 - 16.0 g/dL 03/31/2022 8:25 AM [facility] HEMATOCRIT 36.7 36.0 - 46.0 % 03/31/2022 8:25 AM [facility] [employer] [facility] MCV 90.0 84.0 - 103.0 fL 03/31/2022 8:25 AM [facility] [employer] [facility] MCH 28.9 27.0 - 34.0 pg 03/31/2022 8:25 AM [facility] [employer] [facility] MCHC 32.2 30.0 - 35.0 g/dL 03/31/2022 8:25 AM [facility] RDW 14.8(H) 11.0 - 14.5 % 03/31/2022 8:25 AM [facility] [employer] [facility] RDW-STDEV 48.9 37.0 - 54.0 fL 03/31/2022 8:25 AM [facility] [employer] [facility] PLATELETS 161 140 - 440 K/uL 03/31/2022 8:25 AM [facility] [employer] [facility] MPV 9.7 8.9 - 12.8 fL 03/31/2022 8:25 AM [facility] [employer] [facility] NEUTROPHILS 43 42 - 75 % 03/31/2022 8:25 AM [facility] [employer] [facility] LYMPHOCYTES 39 24 - 44 % 03/31/2022 8:25 AM [facility] [employer] [facility] MONOCYTES 14(H) 2 - 10 % 03/31/2022 8:25 AM [facility] [employer] [facility] EOSINOPHILS 3 0 - 7 % 03/31/2022 8:25 AM [facility] [employer] [facility] BASOPHILS 1 0 - 1 % 03/31/2022 8:25 AM [facility] [employer] [facility] IMMATURE GRANULOCYTES 0 0 - 2 % 03/31/2022 8:25 AM CDT [facility] NEUTROPHIL ABSOLUTE 1.77(L) 2.00 - 8.00 K/uL 03/31/2022 8:25 AM CDT [facility] LYMPHOCYTE ABSOLUTE 1.61 1.20 - 4.00 K/uL 03/31/2022 8:25 AM CDT [facility] MONOCYTE ABSOLUTE 0.57 0.10 - 0.60 K/uL 03/31/2022 8:25 AM CDT [facility] EOSINOPHIL ABSOLUTE 0.13 0.00 - 0.70 K/uL 03/31/2022 8:25 AM CDT [facility] BASOPHILS ABSOLUTE 0.02 0.00 - 0.20 K/uL 03/31/2022 8:25 AM CDT [facility] IMMATURE GRANULOCYTES ABSOLUTE 0.01 0.00 - 0.10 K/uL 03/31/2022 8:25 AM CDT [facility] Blood Collection / Unknown 03/31/2022 3:40 AM CDT 03/31/2022 8:19 AM CDT us External Provider [facility] HEMATOLOGY ORDERABLES Trudy l Result [facility] CLIA # [id number] [facility] [address] * (ABNORMAL) COMPREHENSIVE METABOLIC PANEL (03/31/2022 3:40 AM CDT) [facility] SODIUM 143 136 - 145 mmol/L 03/31/2022 8:50 AM CDT [facility] POTASSIUM 3.5 3.5 - 5.1 mmol/L 03/31/2022 8:50 AM CDT [facility] CHLORIDE 107 98 - 107 mmol/L 03/31/2022 8:50 AM CDT [facility] CO2 26 22 - 29 mmol/L 03/31/2022 8:50 AM CDT [facility] CALCIUM 8.8 8.6 - 10.0 mg/dL 03/31/2022 8:50 AM [facility] BUN 16 6 - 20 mg/dL 03/31/2022 8:50 AM [facility] CREATININE 0.51 0.51 - 0.95 mg/dL 03/31/2022 8:50 AM [facility] GLUCOSE 79 74 - 99 mg/dL 03/31/2022 8:50 AM [facility] TOTAL PROTEIN 6.2(L) 6.4 - 8.3 g/dL 03/31/2022 8:50 AM [facility] ALBUMIN 3.7 3.5 - 5.2 g/dL 03/31/2022 8:50 AM [facility] BILIRUBIN TOTAL <0.2(L) 0.2 - 1.0 mg/dL 03/31/2022 8:50 AM [facility] ALKALINE PHOSPHATASE 68 35 - 104 U/L 03/31/2022 8:50 AM [facility] AST 19 10 - 35 U/L 03/31/2022 8:50 AM [facility] ALT 5 <=35 U/L 03/31/2022 8:50 AM [facility] GFR >60 >=60 mL/min/1. 73 sq meter 03/31/2022 8:50 AM [facility] Comment: eGFR calculated with 2020 CKD-EPI equation. Vegetarian diet, extremely high or low muscle mass, and may affect results. Cystatin C with Glomerular Filtration Rate is a suitable alternative for these patients. The National Kidney Foundation and the [place] Society of Nephrology (NKF-ASN) recommends using the [...] ANION GAP 10 9 - 20 mmol/L 03/31/2022 8:50 AM CDT [facility] Blood Collection / Unknown 03/31/2022 3:40 AM CDT 03/31/2022 8:20 AM CDT External Provider [facility] CHEMISTRY ORDERABLES Final Result [facility] CLIA # [id number] [address] [place] [address] documented in this encounter Visit Diagnoses Not on filedocumented in this encounter Care Teams Bakery Decorator Relationship Specialty Start Date End Date Israel Guardado MD [address] [facility] [address] [place] [address] PCP - General Family Practice 03/19/23 documented as of this encounter
--- OUTSIDE RECORDS SUMMARY | 2025-08-07 13:10 | XMS_ITS | Encounter Summary ---
Author Organization [facility] Address [address] [place] [address] Care Team Providers Care Heat Treater Helper Name Role Phone Yi Anglin MD Primary Care Provider [phone] Encounter Details Date Type Department Care Team (Latest Contact Info) Description 10/11/2007 Outpatient Historical [facility] Family Medicine- [address] [place] [address] Alondra Parker MD NO ADDRESS ON FILE Dysthymic Disorder (Primary Dx) Social History Tobacco Use Types Packs/Day Years Used Date Smoking Tobacco: Never Assessed Comments Unknown Sex and Gender Information Value Date Recorded Sex Assigned at Not on file Legal 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
--- OUTSIDE RECORDS SUMMARY | 2025-08-07 13:10 | XMS_ITS | Encounter Summary ---
Author Organization [facility] Address [address] [place] [address] Care Team Providers Care Secretarial Teacher Name Role Phone Yi Anglin MD Primary Care Provider Encounter Details Date Type Department Care Team (Latest Contact Info) Description 10/22/2005 Outpatient Historical [facility] Family Medicine- [address] [place] [address] Rodney Johnson NP NO ADDRESS ON FILE ACUTE SINUSITIS NOS (Primary Dx); ACUTE BRONCHITIS Social History Tobacco Use Types Packs/Day Years Used Date Smoking Tobacco: Never Assessed Comments Unknown Sex and Gender Information Value Date Recorded Sex Assigned at Not on file 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
--- OUTSIDE RECORDS SUMMARY | 2025-08-07 13:10 | XMS_ITS | Encounter Summary ---
Author Organization [facility] Address [address] [place] [address] Care Team Providers Care Diversified Crops Supervisor Name Role Phone Yi Anglin MD Primary Care Provider Encounter Details Date Type Department Care Team (Latest Contact Info) Description 05/15/2003 Outpatient Historical [facility] Family Medicine- [address] [place] [phone] Alondra Parker MD NO ADDRESS ON FILE ACUTE URI NOS (Primary Dx); ACUTE BRONCHITIS Social History Tobacco Use Types Packs/Day Years Used Date Smoking Tobacco: Never Assessed Comments Unknown Sex and Gender Information Value Date Recorded Sex Assigned at Not on file 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
--- OUTSIDE RECORDS SUMMARY | 2025-08-07 13:10 | XMS_ITS | Encounter Summary ---
Author Organization [facility] Address [address] [place] [address] Care Team Providers Care Home Security Alarm Installer Name Role Phone Yi Anglin MD Primary Care Provider Encounter Details Date Type Department Care Team (Latest Contact Info) Description 07/30/2004 Outpatient Historical [facility] Family Medicine- [address] [place] [phone] Sean Marquez PA NO ADDRESS ON FILE TENOSYNOV HAND/WRIST NEC (Primary Dx) Social History Tobacco Use Types Packs/Day Years Used Date Smoking Tobacco: Never Assessed Comments Unknown Sex and Gender Information Value Date Recorded Sex Assigned at Not on file Legal Sex Female 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
--- OUTSIDE RECORDS SUMMARY | 2025-08-07 13:10 | XMS_ITS | Encounter Summary ---
Demographics Address [address] [place] [address] [place] [address] Home Phone Preferred Language Greek Marital Status Sabianist Affiliation Unknown Race White Ethnic Group Not or Lati no Author Organization [facility] Address [address] [place] [address] Care Team Providers Care Patent Counsel Name Role Phone Yi Anglin MD Primary Care Provider Encounter Details Date Type Department Care Team (Latest Contact Info) Description 01/31/2003 Outpatient Historical [facility] Family Medicine- [address] [place] [phone] José Miguel Bess, NO ADDRESS ON FILE ACUTE STRESS REACT NOS (Primary Dx); ANXIETY STATE NOS Social History Tobacco Use Types Packs/Day Years Used Date Smoking Tobacco: Never Assessed Comments Unknown Sex and Gender Information Value Date Recorded Sex Assigned at Not on file 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
--- OUTSIDE RECORDS SUMMARY | 2025-08-07 13:10 | XMS_ITS | Encounter Summary ---
Author Organization [facility] Address [address] [place] [address] Care Team Providers Care Undraped Artist Model Name Role Phone Yi Anglin MD Primary Care Provider Encounter Details Date Type Department Care Team (Latest Contact Info) Description 05/09/2020 Ancillary Orders [facility] Centralized Scheduling [address] [facility] [address] [place] [address] Devika Garcia, [facility] [address] [place] [address] Right knee pain, unspecified chronicity Social History Tobacco Use Types Packs/Day Years Used Date Smoking Tobacco: Every Day Cigarettes 0.5 3 Started: 06/18/2006; Last attempted to quit: 06/18/2009 Smokeless Tobacco: Never Alcohol Use Standard Drinks/Week Comments No 0 (1 standard drink = 0.6 oz pur e alcohol) Comments No Sex and Gender Information Value Date Recorded Sex Assigned at Not on file 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
--- OUTSIDE RECORDS SUMMARY | 2025-08-07 13:10 | XMS_ITS | Encounter Summary ---
Author Organization [facility] Address [address] [place] [address] Care Team Providers Care Director Of Scout Work Name Role Phone Israel Guardado MD Primary Care Provider [phone] [phone] Encounter Details Date Type Department Care Team (Late st Contact Info) Description 03/10/2022 Lab Requisition [facility] Laboratory Services [address] [place] [address] [facility], External Provider [address] [place] [address] Social History Tobacco Use Types Packs/Day Years Used Date Smoking Tobacco: Every Day Cigarettes Last attempted to quit: 06/18/2009 Smokeless Tobacco: Never Alcohol Use Standard Drinks/Week Comments No 0 (1 standard drink = 0.6 oz pur e alcohol) Comments Unknown Sex and Gender Information Value Date Recorded Sex Assigned at Not on file 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 Gender Identity Not on file Sexual Orientation Not on file documented as of this encounter Plan of Treatment Not on file documented as of this encounter Procedures Procedure Name Priority Date/Time Associated Diagnosis Comments CBC WITH DIFFERENTIAL Routine 03/10/2022 3:20 AM CDT SEDIMENTATION RATE Routine 03/10/2022 3: 20 AM CDT C-REACTIVE PROTEIN Routine 03/10/2022 3: 20 AM CDT COMPREHENSIVE METABOLIC PANEL Routine 03/10/2022 3:20 AM CDT documented in this encounter Results * SEDIMENTATION RATE (03/10/2022 3:20 AM CDT) [facility] ESR (SEDIMENTATION RATE) 15 0 - 20 mm/Hr 03/10/2022 8:24 AM CDT [facility] Blood Collection / Unknown 03/10/2022 3:20 AM CDT 03/10/2022 7:59 AM CDT External Provider [facility] HEMATOLOGY ORDERABLES Trudy l Result [facility] CLIA # [id number] [address] [id number] * C-REACTIVE PROTEIN (03/10/2022 3:20 AM CDT) [facility] CRP <3.0 0.0 - 5.0 mg/L 03/10/2022 10:25 AM CDT [facility] Blood Collection / Unknown 03/10/2022 3:20 AM CDT 03/10/2022 8:00 AM CDT us External Provider [facility] CHEMISTRY ORDERABLES Final Result [facility] CLIA # [id number] [address] [id number] * (ABNORMAL) CBC WITH DIFFERENTIAL (03/10/2022 3:20 AM CDT) [facility] WBC 3.5(L) 4.5 - 11.0 K/uL 03/10/2022 8:13 AM CDT [facility] RBC 4.24 4.20 - 5.40 M/uL 03/10/2022 8:[address] [facility] HEMOGLOBIN 11.9(L) 12.0 - 16.0 g/dL 03/10/2022 8:[address] [facility] HEMATOCRIT 36.7 36.0 - 46.0 % 03/10/2022 8:[address] [facility] MCV 86.6 84.0 - 103.0 fL 03/10/2022 8:[address] [facility] MCH 28.1 27.0 - 34.0 pg 03/10/2022 8:[address] [facility] MCHC 32.4 30.0 - 35.0 g/dL 03/10/2022 8:[address] [facility] RDW 15.3(H) 11.0 - 14.5 % 03/10/2022 8:[address] [facility] PLATELETS 214 140 - 440 K/uL 03/10/2022 8:[address] [facility] MPV 9.4 8.9 - 12.8 fL 03/10/2022 8:[address] [facility] NEUTROPHILS 38(L) 42 - 75 % 03/10/2022 8:[address] [facility] LYMPHOCYTES 43 24 - 44 % 03/10/2022 8:[address] [facility] MONOCYTES 15(H) 2 - 10 % 03/10/2022 8:[address] [facility] EOSINOPHILS 3 0 - 7 % 03/10/2022 8:[address] [facility] BASOPHILS 1 0 - 1 % 03/10/2022 8:[address] [facility] NEUTROPHIL ABSOLUTE 1.32(L) 2.00 - 8.00 K/uL 03/10/2022 8:[address] [facility] LYMPHOCYTE ABSOLUTE 1.51 1.20 - 4.00 K/uL 03/10/2022 8:[address] [facility] MONOCYTE ABSOLUTE 0.52 0.10 - 0.60 K/uL 03/10/2022 8:[address] [facility] EOSINOPHIL ABSOLUTE 0.12 0.00 - 0.70 K/uL 03/10/2022 8:13 AM CDT [facility] BASOPHILS ABSOLUTE 0.02 0.00 - 0.20 K/uL 03/10/2022 8:13 AM CDT [facility] Blood Collection / Unknown 03/10/2022 3:20 AM CDT 03/10/2022 7:59 AM CDT us External Provider [facility] HEMATOLOGY ORDERABLES Trudy l Result [facility] CLIA # [id number] [address] [address] [place] [address] * (ABNORMAL) COMPREHENSIVE METABOLIC PANEL (03/10/2022 3:20 AM CDT) SODIUM 141 136 - 145 mmol/L 03/10/2022 10:25 AM T [facility] POTASSIUM 4.0 3.5 - 5.1 mmol/L 03/10/2022 10:[address] [facility] CHLORIDE 106 98 - 107 mmol/L 03/10/2022 10:25 AM T [facility] CO2 25 22 - 29 mmol/L 03/10/2022 10:25 AM T [facility] CALCIUM 9.2 8.6 - 10.0 mg/dL 03/10/2022 10:25 AM T [facility] BUN 22(H) 6 - 20 mg/dL 03/10/2022 10:25 AM T [facility] CREATININE 0.48(L) 0.51 - 0.95 mg/dL 03/10/2022 10:25 AM T [facility] GLUCOSE 88 74 - 99 mg/dL 03/10/2022 10:[address] [facility] TOTAL PROTEIN 6.1(L) 6.4 - 8.3 g/dL 03/10/2022 10:25 AM T [facility] ALBUMIN 3.4(L) 3.5 - 5.2 g/dL 03/10/2022 10:[address] [facility] BILIRUBIN TOTAL 0.2 0.2 - 1.0 mg/dL 03/10/2022 10:[address] [facility] ALKALINE PHOSPHATASE 84 35 - 104 U/L 03/10/2022 10:[address] [facility] AST 20 10 - 35 U/L 03/10/2022 10:[address] [facility] ALT 7 <=35 U/L 03/10/2022 10:[address] [facility] GFR >60 >=60 mL/min/1. 73 sq meter 03/10/2022 10:[address] [facility] Comment: eGFR calculated with 2020 CKD-EPI equation. Vegetarian diet, extremely high or low muscle mass, and may affect results. Cystatin C with Glomerular Filtration Rate is a suitable alternative for these patients. The National Kidney Foundation and the [place] Society of Nephrology (NKF-ASN) recommends using the [...] ANION GAP 10 9 - 20 mmol/L 03/10/2022 10:25 AM T [facility] Blood Collection / Unknown 03/10/2022 3:20 AM CDT 03/10/2022 8:00 AM CDT External Provider [facility] CHEMISTRY ORDERABLES Final Result [facility] CLIA # [id number] [address] [place] [address] documented in this encounter Visit Diagnoses Not on filedocumented in this encounter Care Teams Director Of Scout Work Relationship Specialty Start Date End Date Israel Guardado MD [address] [address] PCP - General Family Practice 03/19/23 documented as of this encounter
--- OUTSIDE RECORDS SUMMARY | 2025-08-07 13:10 | XMS_ITS | Encounter Summary ---
Author Organization [facility] Address 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
--- NOTE | 2025-08-07 13:11 | CT_ITS ---
WS: [id number] CT HEAD TECHNIQUE: Noncontrast CT of the head obtained from the skullbase to the vertex. CLINICAL INFORMATION: trauma COMPARISON: 2021 DLP: 1407.[address] scans at [facility] use at least one of these dose optimization techniques: automated exposure control; mA and/or kV adjustment per patient size (includes targeted exams where dose is matched to clinical indication); or iterative reconstruction. FINDINGS: No evidence of intracranial hemorrhage or mass effect. Ventricular system and basal cisterns are patent. No extra-axial fluid collections. No evidence of mass or mass effect. Normal milton-white differentiation. Paranasal sinuses and mastoid air cells are well aerated. .Normal visualized soft tissues. CT/CT head wo con* 13624 IMPRESSION: 1. No evidence of intracranial hemorrhage or mass effect. 2. No acute intracranial findings. Notified KATYA Clemens at 08/07/2025 2:39 PM.
--- NOTE | 2025-08-07 13:11 | CT_ITS ---
WS: [id number] CT CERVICAL TRAUMA TECHNIQUE: Noncontrast CT of the cervical spine with coronal and sagittal reformatted images. CLINICAL INFORMATION: trauma COMPARISON: None. DLP: 1407.[address] scans at [facility] use at least one of these dose optimization techniques: automated exposure control; mA and/or kV adjustment per patient size (includes targeted exams where dose is matched to clinical indication); or iterative reconstruction. FINDINGS: Straightening of the normal cervical lordosis. Prior postoperative changes ACDF C2-3. ACDF C5-6. Dens is normal in appearance. Normal occipital condyles. No high-grade spinal canal narrowing. Normal C1 ring. No evidence of acute fracture or dislocation. Normal prevertebral soft tissues. Mastoids air cells are well aerated. CT/CT cervical spin wo con* [id number] IMPRESSION: No evidence of acute fracture or dislocation.
--- OUTSIDE RECORDS SUMMARY | 2025-08-07 13:11 | XMS_ITS | Encounter Summary ---
Author Organization [facility] Address [address] [place] [address] Care Team Providers Care Workers' Compensation Claims Supervisor Name Role Phone Israel Guardado MD Primary Care Provider [phone] [phone] Encounter Details Date Type Department Care Team (Late st Contact Info) Description 02/14/2022 Lab Requisition [facility] Laboratory Services [address] [place] [address] [place] [address] [facility], External Provider [address] [place] [address] Social History Tobacco Use Types Packs/Day Years Used Date Smoking Tobacco: Every Day Cigarettes Last attempted to quit: 06/18/2009 Smokeless Tobacco: Never Alcohol Use Standard Drinks/Week Comments No 0 (1 standard drink = 0.6 oz pur e alcohol) Comments Unknown Sex and Gender Information Value Date Recorded Sex Assigned at Not on file 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 No / Unsure 01/30/2022 12:16 PM ASSISTANT CONTROLLER documented as of this encounter Plan of Treatment Not on file documented as of this encounter Procedures Procedure Name Priority Date/Time Associated Diagnosis Comments CBC WITH DIFFERENTIAL Routine 02/14/2022 3:30 AM CDT COMPREHENSIVE METABOLIC PANEL Routine 02/14/2022 3:30 AM CDT documented in this encounter Results * (ABNORMAL) CBC WITH DIFFERENTIAL (02/14/2022 3:30 AM CDT) [facility] WBC 8.9 4.5 - 11.0 K/uL 02/14/2022 7:39 AM CDT [facility] RBC 4.57 4.20 - 5.40 M/uL 02/14/2022 7:39 AM CDT [facility] HEMOGLOBIN 12.6 12.0 - 16.0 g/dL 02/14/2022 7:[address] [facility] HEMATOCRIT 40.4 36.0 - 46.0 % 02/14/2022 7:[address] [facility] MCV 88.4 84.0 - 103.0 fL 02/14/2022 7:[address] [facility] MCH 27.6 27.0 - 34.0 pg 02/14/2022 7:[address] [facility] MCHC 31.2 30.0 - 35.0 g/dL 02/14/2022 7:[address] [facility] RDW 14.8(H) 11.0 - 14.5 % 02/14/2022 7:[address] [facility] RDW-STDEV 47.4 37.0 - 54.0 fL 02/14/2022 7:[address] [facility] PLATELETS 357 140 - 440 K/uL 02/14/2022 7:[address] [facility] MPV 9.4 8.9 - 12.8 fL 02/14/2022 7:[address] [facility] NEUTROPHILS 58 42 - 75 % 02/14/2022 7:39 [facility] LYMPH[facility]TES 32 24 - 44 % 02/14/2022 7:39 AM CDT [facility] MONOCYTES 10 2 - 10 % 02/14/2022 7:39 [facility] EOSINOPHILS 0 0 - 7 % 02/14/2022 7:39 AM CDT [facility] BASOPHILS 0 0 - 1 % 02/14/2022 7:39 AM CDT [facility] IMMATURE GRANULOCYTES 0 0 - 2 % 02/14/2022 7:39 AM CDT [facility] NEUTROPHIL ABSOLUTE 5.15 2.00 - 8.00 K/uL 02/14/2022 7:39 AM CDT [facility] LYMPHOCYTE ABSOLUTE 2.81 1.20 - 4.00 K/uL 02/14/2022 7:39 AM CDT [facility] MONOCYTE ABSOLUTE 0.84(H) 0.10 - 0.60 K/uL 02/14/2022 7:39 AM CDT [facility] EOSINOPHIL ABSOLUTE 0.03 0.00 - 0.70 K/uL 02/14/2022 7:39 AM CDT [facility] BASOPHILS ABSOLUTE 0.02 0.00 - 0.20 K/uL 02/14/2022 7:39 AM CDT [facility] IMMATURE GRANULOCYTES ABSOLUTE 0.03 0.00 - 0.10 K/uL 02/14/2022 7:39 AM T [facility] Blood Collection / Unknown 02/14/2022 3:30 AM CDT 02/14/2022 7:32 AM CDT us External Provider [facility] HEMATOLOGY ORDERABLES Trudy l Result Performing Organization Address City/State/[facility] Co de Phone Number [facility] CLIA # [id number] [address] [place] [address] * (ABNORMAL) COMPREHENSIVE METABOLIC PANEL (02/14/2022 3:30 AM CDT) [facility] SODIUM 140 136 - 145 mmol/L 02/14/2022 8:23 AM CDT [facility] POTASSIUM 4.0 3.5 - 5.1 mmol/L 02/14/2022 8:23 AM CDT [facility] CHLORIDE 105 98 - 107 mmol/L 02/14/2022 8:[address] [facility] CO2 24 22 - 29 mmol/L 02/14/2022 8:[address] [facility] CALCIUM 9.5 8.6 - 10.0 mg/dL 02/14/2022 8:[address] [facility] BUN 22(H) 6 - 20 mg/dL 02/14/2022 8:[address] [facility] CREATININE 0.51 0.51 - 0.95 mg/dL 02/14/2022 8:[address] [facility] GLUCOSE 94 74 - 99 mg/dL 02/14/2022 8:[address] [facility] TOTAL PROTEIN 7.1 6.4 - 8.3 g/dL 02/14/2022 8:[address] [facility] ALBUMIN 3.5 3.5 - 5.2 g/dL 02/14/2022 8:[address] [facility] BILIRUBIN TOTAL 0.2 0.2 - 1.0 mg/dL 02/14/2022 8:[address] [facility] ALKALINE PHOSPHATASE 93 35 - 104 U/L 02/14/2022 8:[address] [facility] AST 9(L) 10 - 35 U/L 02/14/2022 8:[address] [facility] ALT <5 <=35 U/L 02/14/2022 8:[address] [facility] GFR >60 >=60 mL/min/1. 73 sq meter 02/14/2022 8:[address] [facility] Comment: eGFR calculated with 2020 CKD-EPI equation. Vegetarian diet, extremely high or low muscle mass, and may affect results. Cystatin C with Glomerular Filtration Rate is a suitable alternative for these patients. The National Kidney Foundation and the [place] Society of Nephrology (NKF-ASN) recommends using the [...] surgery, chemotherapy, and transplant referral. ANION GAP 11 9 - 20 mmol/L 02/14/2022 8:23 AM CDT [facility] Blood Collection / Unknown 02/14/2022 3:30 AM CDT 02/14/2022 7:32 AM CDT External Provider [facility] CHEMISTRY ORDERABLES Final Result [facility] [employer] [facility] CLIA # [id number] [id number] [place] [address] documented in this encounter Visit Diagnoses Not on filedocumented in this encounter Care Teams Workers' Compensation Claims Supervisor Relationship Specialty Start Date End Date Israel Guardado MD [address] [facility] [address] [place] [phone] PCP - General Family Practice 03/19/23 documented as of this encounter
--- OUTSIDE RECORDS SUMMARY | 2025-08-07 13:11 | XMS_ITS | Encounter Summary ---
Author Organization [facility] Address [address] [place] [address] Care Team Providers Care Structural Manager Name Role Phone Israel Guardado MD Primary Care Provider [phone] [phone] Encounter Details Date Type Department Care Team (Late st Contact Info) Description 02/24/2022 Lab Requisition [facility] Laboratory Services [address] [address] [place] [address] Catarino Harrington, DMITRY [address] [address] Social History Tobacco Use Types Packs/Day Years Used Date Smoking Tobacco: Every Day Cigarettes Last attempted to quit: 06/18/2009 Smokeless Tobacco: Never Alcohol Use Standard Drinks/Week Comments No 0 (1 standard drink = 0.6 oz pur e alcohol) Comments Unknown Sex and Gender Information Value Date Recorded Sex Assigned at Not on file 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 No / Unsure 01/30/2022 12:16 PM MAINTENANCE FITTER documented as of this encounter Plan of Treatment Not on file documented as of this encounter Procedures Procedure Name Priority Date/Time Associated Diagnosis Comments CBC WITH DIFFERENTIAL Routine 02/24/2022 1:50 AM CDT SEDIMENTATION RATE Routine 02/24/2022 1: 50 AM CDT C-REACTIVE PROTEIN Routine 02/24/2022 1: 50 AM CDT documented in this encounter Results * SEDIMENTATION RATE (02/24/2022 1:50 AM CDT) [facility] ESR (SEDIMENTATION RATE) 17 0 - 20 mm/Hr 02/24/2022 10:42 AM CDT [facility] Blood Collection / Unknown 02/24/2022 1:50 AM CDT 02/24/2022 10:19 AM CDT Catarino Harrington NP HEMATOLOGY ORDERABLES Fi nal Result Performing Organization Address [facility] Co de Phone Number [facility] CLIA # [id number] [address] [place], [place] [id number] * (ABNORMAL) C-REACTIVE PROTEIN (02/24/2022 1:50 AM CDT) [facility] CRP 6.4(H) 0.0 - 5.0 mg/L 02/24/2022 10:40 AM CDT [facility] Blood Collection / Unknown 02/24/2022 1:50 AM CDT 02/24/2022 10:20 AM CDT Catarino Harrington NP CHEMISTRY ORDERABLES Fin al Result Performing Organization Address [facility]/ZIP Co de Phone Number [facility] CLIA # [id number] [address] [place], [place] [id number] * (ABNORMAL) CBC WITH DIFFERENTIAL (02/24/2022 1:50 AM CDT) [facility] WBC 4.0(L) 4.5 - 11.0 K/uL 02/24/2022 10:27 AM [facility] RBC 4.21 4.20 - 5.40 M/uL 02/24/2022 10:27 AM [facility] HEMOGLOBIN 11.8(L) 12.0 - 16.0 g/dL 02/24/2022 10:27 AM [facility] HEMATOCRIT 38.0 36.0 - 46.0 % 02/24/2022 10:27 AM [facility] MCV 90.3 84.0 - 103.0 fL 02/24/2022 10:27 AM [facility] MCH 28.0 27.0 - 34.0 pg 02/24/2022 10:27 AM [facility] MCHC 31.1 30.0 - 35.0 g/dL 02/24/2022 10:27 AM [facility] [employer] [facility] RDW 15.7(H) 11.0 - 14.5 % 02/24/2022 10:27 AM [facility] [employer] [facility] RDW-STDEV 51.2 37.0 - 54.0 fL 02/24/2022 10:27 AM [facility] PLATELETS 186 140 - 440 K/uL 02/24/2022 10:27 AM [facility] [employer] [facility] MPV 9.5 8.9 - 12.8 fL 02/24/2022 10:27 AM [facility] NEUTROPHILS 51 42 - 75 % 02/24/2022 10:27 AM [facility] [employer] [facility] LYMPHOCYTES 34 24 - 44 % 02/24/2022 10:27 AM [facility] [employer] [facility] MONOCYTES 12(H) 2 - 10 % 02/24/2022 10:27 AM [facility] [employer] [facility] EOSINOPHILS 3 0 - 7 % 02/24/2022 10:27 AM [facility] [employer] [facility] BASOPHILS 0 0 - 1 % 02/24/2022 10:27 AM [facility] IMMATURE GRANULOCYTES 0 0 - 2 % 02/24/2022 10:27 AM CDT [facility] NEUTROPHIL ABSOLUTE 2.02 2.00 - 8.00 K/uL 02/24/2022 10:27 AM CDT [facility] LYMPHOCYTE ABSOLUTE 1.36 1.20 - 4.00 K/uL 02/24/2022 10:27 AM CDT [facility] MONOCYTE ABSOLUTE 0.49 0.10 - 0.60 K/uL 02/24/2022 10:27 AM CDT [facility] EOSINOPHIL ABSOLUTE 0.10 0.00 - 0.70 K/uL 02/24/2022 10:27 AM CDT [facility] BASOPHILS ABSOLUTE 0.01 0.00 - 0.20 K/uL 02/24/2022 10:27 AM CDT [facility] IMMATURE GRANULOCYTES ABSOLUTE 0.00 0.00 - 0.10 K/uL 02/24/2022 10:27 AM CDT [facility] Blood Collection / Unknown 02/24/2022 1:50 AM CDT 02/24/2022 10:19 AM CDT Catarino Harrington [facility] HEMATOLOGY ORDERABLES Fi nal Result [facility] CLIA # [id number] [address] [address] documented in this encounter Visit Diagnoses Not on filedocumented in this encounter Care Teams Structural Manager Relationship Specialty Start Date End Date Israel Guardado MD [address] [phone] PCP - General Family Practice 03/19/23 documented as of this encounter
--- OUTSIDE RECORDS SUMMARY | 2025-08-07 13:11 | XMS_ITS | Encounter Summary ---
Author Organization [facility] Address [address] [place] [address] Care Team Providers Care Study Lead Name Role Phone Israel Guardado MD Primary Care Provider [phone] [phone] Encounter Details Date Type Department Care Team (Late st Contact Info) Description 02/21/2022 Lab Requisition [facility] Laboratory Services [address] [place] [address] [facility], External Provider [address] [place] [address] Social History Tobacco Use Types Packs/Day Years Used Date Smoking Tobacco: Every Day Cigarettes Last attempted to quit: 06/18/2009 Smokeless Tobacco: Never Alcohol Use Standard Drinks/Week Comments No 0 (1 standard drink = 0.6 oz pur e alcohol) Comments Unknown Sex and Gender Information Value Date Recorded Sex Assigned at Not on file 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 No / Unsure 01/30/2022 12:16 PM FORM SETTER [employer]MS documented as of this encounter Plan of Treatment Not on file documented as of this encounter Procedures Procedure Name Priority Date/Time Associated Diagnosis Comments CBC WITH DIFFERENTIAL Routine 02/21/2022 4:30 AM CDT BASIC METABOLIC PANEL Routine 02/21/2022 4:30 AM CDT documented in this encounter Results * (ABNORMAL) CBC WITH DIFFERENTIAL (02/21/2022 4:30 AM CDT) [facility] WBC 4.3(L) 4.5 - 11.0 K/uL 02/21/2022 7:36 AM CDT [facility] RBC 4.33 4.20 - 5.40 M/uL 02/21/2022 7:36 AM T [facility] HEMOGLOBIN 11.9(L) 12.0 - 16.0 g/dL 02/21/2022 7:36 AM [facility] HEMATOCRIT 38.0 36.0 - 46.0 % 02/21/2022 7:36 AM [facility] MCV 87.8 84.0 - 103.0 fL 02/21/2022 7:36 AM [facility] MCH 27.5 27.0 - 34.0 pg 02/21/2022 7:36 AM [facility] MCHC 31.3 30.0 - 35.0 g/dL 02/21/2022 7:36 AM [facility] RDW 15.3(H) 11.0 - 14.5 % 02/21/2022 7:36 AM [facility] RDW-STDEV 49.3 37.0 - 54.0 fL 02/21/2022 7:36 AM [facility] PLATELETS 222 140 - 440 K/uL 02/21/2022 7:36 AM [facility] MPV 9.0 8.9 - 12.8 fL 02/21/2022 7:36 AM [facility] NEUTROPHILS 51 42 - 75 % 02/21/2022 7:36 AM [facility] LYMPHOCYTES 36 24 - 44 % 02/21/2022 7:36 AM [facility] MONOCYTES 11(H) 2 - 10 % 02/21/2022 7:36 AM [facility] EOSINOPHILS 2 0 - 7 % 02/21/2022 7:36 AM CDT [facility] BASOPHILS 0 0 - 1 % 02/21/2022 7:36 AM CDT [facility] IMMATURE GRANULOCYTES 0 0 - 2 % 02/21/2022 7:36 AM CDT [facility] NEUTROPHIL ABSOLUTE 2.18 2.00 - 8.00 K/uL 02/21/2022 7:36 AM CDT [facility] LYMPHOCYTE ABSOLUTE 1.54 1.20 - 4.00 K/uL 02/21/2022 7:36 AM CDT [facility] MONOCYTE ABSOLUTE 0.48 0.10 - 0.60 K/uL 02/21/2022 7:36 AM CDT [facility] EOSINOPHIL ABSOLUTE 0.09 0.00 - 0.70 K/uL 02/21/2022 7:36 AM CDT [facility] BASOPHILS ABSOLUTE 0.01 0.00 - 0.20 K/uL 02/21/2022 7:36 AM CDT [facility] IMMATURE GRANULOCYTES ABSOLUTE 0.01 0.00 - 0.10 K/uL 02/21/2022 7:36 AM CDT [facility] Blood Collection / Unknown 02/21/2022 4:30 AM CDT 02/21/2022 7:27 AM CDT us External Provider [facility] HEMATOLOGY ORDERABLES Trudy l Result [facility] CLIA # [id number] [address] [address] * (ABNORMAL) BASIC METABOLIC PANEL (02/21/2022 4:30 AM CDT) [facility] SODIUM 139 136 - 145 mmol/L 02/21/2022 7:53 AM CDT [facility] POTASSIUM 4.3 3.5 - 5.1 mmol/L 02/21/2022 7:53 AM CDT [facility] CHLORIDE 104 98 - 107 mmol/L 02/21/2022 7:53 AM [facility] CO2 27 22 - 29 mmol/L 02/21/2022 7:53 AM [facility] CALCIUM 9.0 8.6 - 10.0 mg/dL 02/21/2022 7:53 AM [facility] BUN 18 6 - 20 mg/dL 02/21/2022 7:53 AM [facility] CREATININE 0.44(L) 0.51 - 0.95 mg/dL 02/21/2022 7:53 AM [facility] GLUCOSE 82 74 - 99 mg/dL 02/21/2022 7:53 AM [facility] GFR >60 >=60 mL/min/1. 73 sq meter 02/21/2022 7:53 AM [facility] Comment: eGFR calculated with 2020 CKD-EPI equation. Vegetarian diet, extremely high or low muscle mass, and may affect results. Cystatin C with Glomerular Filtration Rate is a suitable alternative for these patients. The National Kidney Foundation and the [place] [employer] of Nephrology (NKF-ASN) recommends using the [...] surgery, chemotherapy, and transplant referral. ANION GAP 8(L) 9 - 20 mmol/L 02/21/2022 7:53 AM [facility] Blood Collection / Unknown 02/21/2022 4:30 AM CDT 02/21/2022 7:30 AM CDT us External Provider [facility] CHEMISTRY ORDERABLES Final Result [facility] CLIA # [id number] [address] [address] documented in this encounter Visit Diagnoses Not on filedocumented in this encounter Care Teams Study Lead Relationship Specialty Start Date End Date Israel Guardado MD [address] [phone] PCP - General Family Practice 03/19/23 documented as of this encounter
--- OUTSIDE RECORDS SUMMARY | 2025-08-07 13:11 | XMS_ITS | Encounter Summary ---
Author Organization [facility] Address [address] [place] [address] Care Team Providers Care Automatic Developer Name Role Phone Israel Guardado MD Primary Care Provider [phone] [phone] Encounter Details Date Type Department Care Team (Late st Contact Info) Description 02/19/2022 Lab Requisition [facility] Laboratory Services [address] [place] [address] [place] [address] [facility], External Provider [address] [place] [address] Social History Tobacco Use Types Packs/Day Years Used Date Smoking Tobacco: Every Day Cigarettes Last attempted to quit: 06/18/2009 Smokeless Tobacco: Never Alcohol Use Standard Drinks/Week Comments No 0 (1 standard drink = 0.6 oz pur e alcohol) Comments Unknown Sex and Gender Information Value Date Recorded Sex Assigned at Not on file Legal Sex Female 10:30 AM COMBAT ENGINEER Gender Identity Not on file Sexual Orientation Not on file COVID-19 Exposure Response Date Recorded In the last month, have you been in contact with someone who was confirmed or suspected to have Coronavirus / COVID-19? No / Unsure 01/30/2022 12:16 PM COMBAT ENGINEER documented as of this encounter Plan of Treatment Not on file documented as of this encounter Procedures Procedure Name Priority Date/Time Associated Diagnosis Comments CBC WITH DIFFERENTIAL Routine 02/19/2022 2:10 AM CDT BASIC METABOLIC PANEL Routine 02/19/2022 2:10 AM CDT documented in this encounter Results * (ABNORMAL) CBC WITH DIFFERENTIAL (02/19/2022 2:10 AM CDT) [facility] WBC 6.9 4.5 - 11.0 K/uL 02/19/2022 8:12 AM CDT [facility] RBC 4.34 4.20 - 5.40 M/uL 02/19/2022 8:12 AM CDT [facility] HEMOGLOBIN 12.0 12.0 - 16.0 g/dL 02/19/2022 8:12 AM CDT [facility] HEMATOCRIT 38.9 36.0 - 46.0 % 02/19/2022 8:12 AM T [facility] MCV 89.6 84.0 - 103.0 fL 02/19/2022 8:12 AM [facility] MCH 27.6 27.0 - 34.0 pg 02/19/2022 8:12 AM T [facility] MCHC 30.8 30.0 - 35.0 g/dL 02/19/2022 8:12 AM [facility] RDW 15.2(H) 11.0 - 14.5 % 02/19/2022 8:12 AM [facility] RDW-STDEV 49.9 37.0 - 54.0 fL 02/19/2022 8:12 AM [facility] PLATELETS 282 140 - 440 K/uL 02/19/2022 8:12 AM [facility] MPV 9.4 8.9 - 12.8 fL 02/19/2022 8:12 AM [facility] NEUTROPHILS 58 42 - 75 % 02/19/2022 8:12 AM CDT [facility] LYMPHOCYTES 32 24 - 44 % 02/19/2022 8:12 AM CDT [facility] MONOCYTES 9 2 - 10 % 02/19/2022 8:12 AM CDT [facility] EOSINOPHILS 0 0 - 7 % 02/19/2022 8:12 AM CDT [facility] BASOPHILS 0 0 - 1 % 02/19/2022 8:12 AM CDT [facility] IMMATURE GRANULOCYTES 0 0 - 2 % 02/19/2022 8:12 AM CDT [facility] NEUTROPHIL ABSOLUTE 3.99 2.00 - 8.00 K/uL 02/19/2022 8:12 AM CDT [facility] LYMPHOCYTE ABSOLUTE 2.23 1.20 - 4.00 K/uL 02/19/2022 8:12 AM CDT [facility] MONOCYTE ABSOLUTE 0.64(H) 0.10 - 0.60 K/uL 02/19/2022 8:12 AM CDT [facility] EOSINOPHIL ABSOLUTE 0.03 0.00 - 0.70 K/uL 02/19/2022 8:12 AM CDT [facility] BASOPHILS ABSOLUTE 0.01 0.00 - 0.20 K/uL 02/19/2022 8:12 AM CDT [facility] IMMATURE GRANULOCYTES ABSOLUTE 0.01 0.00 - 0.10 K/uL 02/19/2022 8:12 AM CDT [facility] Blood Collection / Unknown 02/19/2022 2:10 AM CDT 02/19/2022 7:59 AM CDT us External Provider [facility] HEMATOLOGY ORDERABLES Trudy l Result Performing Organization Address City/State/[facility] Co de Phone Number [facility] CLIA # [id number] [address] [place] [address] * (ABNORMAL) BASIC METABOLIC PANEL (02/19/2022 2:10 AM CDT) Pathologist [facility] SODIUM 143 136 - 145 mmol/L 02/19/2022 8:53 AM CDT [facility] POTASSIUM 3.6 3.5 - 5.1 mmol/L 02/19/2022 8:53 AM CDT [facility] CHLORIDE 104 98 - 107 mmol/L 02/19/2022 8:53 AM [facility] CO2 28 22 - 29 mmol/L 02/19/2022 8:53 AM [facility] CALCIUM 9.0 8.6 - 10.0 mg/dL 02/19/2022 8:53 AM [facility] BUN 19 6 - 20 mg/dL 02/19/2022 8:53 AM [facility] CREATININE 0.49(L) 0.51 - 0.95 mg/dL 02/19/2022 8:53 AM [facility] GLUCOSE 107(H) 74 - 99 mg/dL 02/19/2022 8:53 AM [facility] GFR >60 >=60 mL/min/1. 73 sq meter 02/19/2022 8:53 AM [facility] Comment: eGFR calculated with 2020 CKD-EPI equation. Vegetarian diet, extremely high or low muscle mass, and may affect results. Cystatin C with Glomerular Filtration Rate is a suitable alternative for these patients. The [employer] and the [place] [employer] (NKF-ASN) recommends using the [...] ANION GAP 11 9 - 20 mmol/L 02/19/2022 8:53 AM [facility] Blood Collection / Unknown 02/19/2022 2:10 AM CDT 02/19/2022 8:01 AM CDT us External Provider [facility] CHEMISTRY ORDERABLES Final Result [facility] CLIA # [id number] Critical access hospital[address] [address] [place] [address] documented in this encounter Visit Diagnoses Not on filedocumented in this encounter Care Teams Automatic Developer Relationship Specialty Start Date End Date Israel Guardado MD [address] [id number] PCP - General Family Practice 03/19/23 documented as of this encounter
--- OUTSIDE RECORDS SUMMARY | 2025-08-07 13:11 | XMS_ITS | Encounter Summary ---
Author Organization [facility] Address [address] [place] [address] Care Team Providers Care Embalmer Apprentice Name Role Phone Israel Guardado MD Primary Care Provider +1 [phone] Encounter Details Date Type Department Care Team (Late st Contact Info) Description 02/09/2022 Lab Requisition [facility] Laboratory Services [address] [place] [address] [place] [address] [facility], External Provider [address] [place] [address] Social History Tobacco Use Types Packs/Day Years Used Date Smoking Tobacco: Every Day Cigarettes Last attempted to quit: 06/18/2009 Smokeless Tobacco: Never Alcohol Use Standard Drinks/Week Comments No 0 (1 standard drink = 0.6 oz pur e alcohol) Comments Unknown Sex and Gender Information Value Date Recorded Sex Assigned at Not on file Legal Sex Female 10:30 AM 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 No / Unsure 01/30/2022 12:16 PM BUSINESS ANALYTICS FACULTY MEMBER documented as of this encounter Plan of Treatment Not on file documented as of this encounter Procedures Procedure Name Priority Date/Time Associated Diagnosis Comments CBC WITH DIFFERENTIAL Routine 02/09/2022 3:00 AM CDT PHOSPHORUS Routine 02/09/2022 3:00 AM CDT MAGNESIUM LEVEL Routine 02/09/2022 3:00 AM CDT COMPREHENSIVE METABOLIC PANEL Routine 02/09/2022 3:00 AM CDT documented in this encounter Results * PHOSPHORUS (02/09/2022 3:00 AM CDT) PHOSPHORUS 3.8 2.5 - 4.5 mg/dL 02/09/2022 7:34 AM CDT [facility] Blood Collection / Unknown 02/09/2022 3:00 AM CDT 02/09/2022 7:13 AM CDT External Provider [facility] CHEMISTRY ORDERABLES Final Result Performing Organization Address City/[facility]/ZIP Co de Phone Number [facility] CLIA # [id number] [address] [address] * MAGNESIUM LEVEL (02/09/2022 3:00 AM CDT) Pathologist [facility] MAGNESIUM 2.4 1.6 - 2.6 mg/dL 02/09/2022 7:34 AM CDT [facility] Blood Collection / Unknown 02/09/2022 3:00 AM CDT 02/09/2022 7:13 AM CDT External Provider [facility] CHEMISTRY ORDERABLES Final Result [facility] CLIA # [id number] [address] [place] [address] * (ABNORMAL) CBC WITH DIFFERENTIAL (02/09/2022 3:00 AM CDT) WBC 11.7(H) 4.5 - 11.0 K/uL 02/09/2022 7:19 AM [facility] RBC 4.82 4.20 - 5.40 M/uL 02/09/2022 7:19 AM [facility] HEMOGLOBIN 13.1 12.0 - 16.0 g/dL 02/09/2022 7:19 AM [facility] HEMATOCRIT 41.7 36.0 - 46.0 % 02/09/2022 7:19 AM [facility] MCV 86.5 84.0 - 103.0 fL 02/09/2022 7:19 AM [facility] [employer] MCH 27.2 27.0 - 34.0 pg 02/09/2022 7:19 AM [facility] MCHC 31.4 30.0 - 35.0 g/dL 02/09/2022 7:19 AM [facility] RDW 14.6(H) 11.0 - 14.5 % 02/09/2022 7:19 AM [facility] RDW-STDEV 46.4 37.0 - 54.0 fL 02/09/2022 7:19 AM [facility] PLATELETS 369 140 - 440 K/uL 02/09/2022 7:19 AM [facility] MPV 8.6(L) 8.9 - 12.8 fL 02/09/2022 7:19 AM [facility] NEUTROPHILS 64 42 - 75 % 02/09/2022 7:19 AM [facility] LYMPHOCYTES 27 24 - 44 % 02/09/2022 7:19 AM [facility] MONOCYTES 7 2 - 10 % 02/09/2022 7:19 AM [facility] EOSINOPHILS 1 0 - 7 % 02/09/2022 7:19 AM [facility] BASOPHILS 0 0 - 1 % 02/09/2022 7:19 AM [facility] IMMATURE GRANULOCYTES 1 0 - 2 % 02/09/2022 7:19 AM [facility] NEUTROPHIL ABSOLUTE 7.51 2.00 - 8.00 K/uL 02/09/2022 7:19 AM CDT [facility] LYMPHOCYTE ABSOLUTE 3.18 1.20 - 4.00 K/uL 02/09/2022 7:19 AM CDT [facility] MONOCYTE ABSOLUTE 0.80(H) 0.10 - 0.60 K/uL 02/09/2022 7:19 AM CDT [facility] EOSINOPHIL ABSOLUTE 0.09 0.00 - 0.70 K/uL 02/09/2022 7:19 AM CDT [facility] BASOPHILS ABSOLUTE 0.01 0.00 - 0.20 K/uL 02/09/2022 7:19 AM CDT [facility] IMMATURE GRANULOCYTES ABSOLUTE 0.07 0.00 - 0.10 K/uL 02/09/2022 7:19 AM T [facility] Blood Collection / Unknown 02/09/2022 3:00 AM CDT 02/09/2022 7:13 AM CDT us External Provider [facility] HEMATOLOGY ORDERABLES Trudy l Result [facility] CLIA # [id number] [address] [place] [address] * (ABNORMAL) COMPREHENSIVE METABOLIC PANEL (02/09/2022 3:00 AM CDT) SODIUM 138 136 - 145 mmol/L 02/09/2022 7:34 AM CDT [facility] POTASSIUM 4.0 3.5 - 5.1 mmol/L 02/09/2022 7:34 AM CDT [facility] CHLORIDE 102 98 - 107 mmol/L 02/09/2022 7:34 AM CDT [facility] CO2 25 22 - 29 mmol/L 02/09/2022 7:34 AM CDT [facility] CALCIUM 9.3 8.6 - 10.0 mg/dL 02/09/2022 7:34 AM CDT [facility] BUN 20 6 - 20 mg/dL 02/09/2022 7:34 AM [facility] CREATININE 0.50(L) 0.51 - 0.95 mg/dL 02/09/2022 7:34 AM [facility] GLUCOSE 107(H) 74 - 99 mg/dL 02/09/2022 7:34 AM [facility] TOTAL PROTEIN 7.2 6.4 - 8.3 g/dL 02/09/2022 7:34 AM [facility] ALBUMIN 3.3(L) 3.5 - 5.2 g/dL 02/09/2022 7:34 AM [facility] BILIRUBIN TOTAL 0.2 0.2 - 1.0 mg/dL 02/09/2022 7:34 AM [facility] ALKALINE PHOSPHATASE 91 35 - 104 U/L 02/09/2022 7:34 AM [facility] AST 6(L) 10 - 35 U/L 02/09/2022 7:34 AM [facility] ALT 8 <=35 U/L 02/09/2022 7:34 AM [facility] GFR >60 >=60 mL/min/1. 73 sq meter 02/09/2022 7:34 AM [facility] Comment: eGFR calculated with 2020 CKD-EPI equation. Vegetarian diet, extremely high or low muscle mass, and may affect results. Cystatin C with Glomerular Filtration Rate is a suitable alternative for these patients. The National Kidney Foundation and the [place] Society of Nephrology (NKF-ASN) recommends using the [...] ANION GAP 11 9 - 20 mmol/L 02/09/2022 7:34 AM [facility] Blood Collection / Unknown 02/09/2022 3:00 AM CDT 02/09/2022 7:13 AM CDT External Provider [facility] CHEMISTRY ORDERABLES Final Result [facility] CLIA # [id number] [address] [address] documented in this encounter Visit Diagnoses Not on filedocumented in this encounter Care Teams Embalmer Apprentice Relationship Specialty Start Date End Date Israel Guardado MD [address] [phone] PCP - General Family Practice 03/19/23 documented as of this encounter
--- OUTSIDE RECORDS SUMMARY | 2025-08-07 13:11 | XMS_ITS | Encounter Summary ---
Author Organization [facility] Address [address] [place] [address] Care Team Providers Care Manager Therapy Name Role Phone Israel Guardado MD Primary Care Provider [phone] [phone] Encounter Details Date Type Department Care Team (Late st Contact Info) Description 02/18/2022 Lab Requisition [facility] Laboratory Services [address] [place] [address] [place] [address] Catarino Harrington NP [address] [address] Social History Tobacco Use Types Packs/Day Years Used Date Smoking Tobacco: Every Day Cigarettes Last attempted to quit: 06/18/2009 Smokeless Tobacco: Never Alcohol Use Standard Drinks/Week Comments No 0 (1 standard drink = 0.6 oz pur e alcohol) Comments Unknown Sex and Gender Information Value Date Recorded Sex Assigned at Not on file Legal Sex Female 10:30 AM WEIGHER AND CRUSHER Gender Identity Not on file Sexual Orientation Not on file COVID-19 Exposure Response Date Recorded In the last month, have you been in contact with someone who was confirmed or suspected to have Coronavirus / COVID-19? No / Unsure 01/30/2022 12:16 PM WEIGHER AND CRUSHER documented as of this encounter Plan of Treatment Not on file documented as of this encounter Procedures Procedure Name Priority Date/Time Associated Diagnosis Comments COMPREHENSIVE METABOLIC PANEL Routine 02/18/2022 1:20 AM CDT documented in this encounter Results * (ABNORMAL) COMPREHENSIVE METABOLIC PANEL (02/18/2022 1:20 AM CDT) [facility] SODIUM 142 136 - 145 mmol/L 02/18/2022 6:38 AM CDT [facility] POTASSIUM 4.1 3.5 - 5.1 mmol/L 02/18/2022 6:38 AM CDT [facility] CHLORIDE 107 98 - 107 mmol/L 02/18/2022 6:38 AM CDT [facility] CO2 26 22 - 29 mmol/L 02/18/2022 6:38 AM T [facility] CALCIUM 9.1 8.6 - 10.0 mg/dL 02/18/2022 6:38 AM T [facility] BUN 18 6 - 20 mg/dL 02/18/2022 6:38 AM T [facility] CREATININE 0.43(L) 0.51 - 0.95 mg/dL 02/18/2022 6:38 AM T [facility] GLUCOSE 89 74 - 99 mg/dL 02/18/2022 6:38 AM T [facility] TOTAL PROTEIN 6.4 6.4 - 8.3 g/dL 02/18/2022 6:38 AM T [facility] ALBUMIN 3.3(L) 3.5 - 5.2 g/dL 02/18/2022 6:38 AM T [facility] BILIRUBIN TOTAL <0.2(L) 0.2 - 1.0 mg/dL 02/18/2022 6:38 AM T [facility] ALKALINE PHOSPHATASE 84 35 - 104 U/L 02/18/2022 6:38 AM T [facility] AST 10 10 - 35 U/L 02/18/2022 6:38 AM T [facility] ALT 5 <=35 U/L 02/18/2022 6:38 AM T [facility] GFR >60 >=60 mL/min/1. 73 sq meter 02/18/2022 6:38 AM CDT [facility] [employer] [facility] Comment: eGFR calculated with 2020 CKD-EPI equation. Vegetarian diet, extremely high or low muscle mass, and may affect results. Cystatin C with Glomerular Filtration Rate is a suitable alternative for these patients. The National Kidney Foundation and the [place] Society of Nephrology (NKF-ASN) recommends using the [...] ANION GAP 9 9 - 20 mmol/L 02/18/2022 6:38 AM CDT [facility] [employer] [facility] Blood Collection / Unknown 02/18/2022 1:20 AM CDT 02/18/2022 6:16 AM CDT Catarino Harrington NP CHEMISTRY ORDERABLES Fin al Result [facility] [employer] [facility] CLIA # [id number] [address] [address] documented in this encounter Visit Diagnoses Not on filedocumented in this encounter Care Teams Manager Therapy Relationship Specialty Start Date End Date Israel Guardado MD [address] [facility] [address] [place] [phone] PCP - General Family Practice 03/19/23 documented as of this encounter
--- OUTSIDE RECORDS SUMMARY | 2025-08-07 13:11 | XMS_ITS | Encounter Summary ---
Author Organization [facility] Address [address] [place] [address] Care Team Providers Care Settlement Clerk Name Role Phone Israel Guardado MD Primary Care Provider [phone] [phone] Encounter Details Date Type Department Care Team (Late st Contact Info) Description 02/24/2022 Lab Requisition [facility] Laboratory Services [address] [place] [address] [place] [phone] Oumou Cardoza MD [address] [facility] [address] [place] [address] Social History Tobacco Use Types Packs/Day Years Used Date Smoking Tobacco: Every Day Cigarettes Last attempted to quit: 06/18/2009 Smokeless Tobacco: Never Alcohol Use Standard Drinks/Week Comments No 0 (1 standard drink = 0.6 oz pur e alcohol) Comments Unknown Sex and Gender Information Value Date Recorded Sex Assigned at Not on file Legal Sex Female 10:30 AM DECONTAMINATION TECHNICIAN Gender Identity Not on file Sexual Orientation Not on file COVID-19 Exposure Response Date Recorded In the last month, have you been in contact with someone who was confirmed or suspected to have Coronavirus / COVID-19? No / Unsure 01/30/2022 12:16 PM DECONTAMINATION TECHNICIAN documented as of this encounter Plan of Treatment Not on file documented as of this encounter Procedures Procedure Name Priority Date/Time Associated Diagnosis Comments CBC WITH DIFFERENTIAL Routine 02/24/2022 2:17 PM CDT documented in this encounter Results * (ABNORMAL) CBC WITH DIFFERENTIAL (02/24/2022 2:17 PM CDT) [facility] WBC 4.9 4.5 - 11.0 K/uL 02/24/2022 3:37 PM CDT [facility] RBC 4.59 4.20 - 5.40 M/uL 02/24/2022 3:37 PM CDT [facility] HEMOGLOBIN 12.9 12.0 - 16.0 g/dL 02/24/2022 3:37 PM CDT [facility] HEMATOCRIT 39.6 36.0 - 46.0 % 02/24/2022 3:37 PM CDT [facility] MCV 86.3 84.0 - 103.0 fL 02/24/2022 3:37 PM CDT [facility] MCH 28.1 27.0 - 34.0 pg 02/24/2022 3:37 PM CDT [facility] MCHC 32.6 30.0 - 35.0 g/dL 02/24/2022 3:37 PM CDT [facility] RDW 15.4(H) 11.0 - 14.5 % 02/24/2022 3:37 PM [facility] RDW-STDEV 48.5 37.0 - 54.0 fL 02/24/2022 3:37 PM CDT [facility] PLATELETS 230 140 - 440 K/uL 02/24/2022 3:37 PM CDT [facility] MPV 9.4 8.9 - 12.8 fL 02/24/2022 3:37 PM CDT [facility] NEUTROPHILS 59 42 - 75 % 02/24/2022 3:37 PM CDT [facility] LYMPHOCYTES 27 24 - 44 % 02/24/2022 3:37 PM CDT [facility] MONOCYTES 11(H) 2 - 10 % 02/24/2022 3:37 PM CDT [facility] EOSINOPHILS 2 0 - 7 % 02/24/2022 3:37 PM CDT [facility] BASOPHILS 0 0 - 1 % 02/24/2022 3:37 PM CDT [facility] IMMATURE GRANULOCYTES 0 0 - 2 % 02/24/2022 3:37 PM CDT [facility] NEUTROPHIL ABSOLUTE 2.90 2.00 - 8.00 K/uL 02/24/2022 3:37 PM CDT [facility] LYMPHOCYTE ABSOLUTE 1.31 1.20 - 4.00 K/uL 02/24/2022 3:37 PM CDT [facility] MONOCYTE ABSOLUTE 0.55 0.10 - 0.60 K/uL 02/24/2022 3:37 PM CDT [facility] EOSINOPHIL ABSOLUTE 0.11 0.00 - 0.70 K/uL 02/24/2022 3:37 PM CDT [facility] BASOPHILS ABSOLUTE 0.01 0.00 - 0.20 K/uL 02/24/2022 3:37 PM CDT [facility] IMMATURE GRANULOCYTES ABSOLUTE 0.01 0.00 - 0.10 K/uL 02/24/2022 3:37 PM CDT [facility] Blood Collection / Unknown 02/24/2022 2:17 PM CDT 02/24/2022 3:18 PM CDT Oumou Cardoza MD HEMATOLOGY ORDERABLES Final Res ult [facility] CLIA # [id number] [address] [facility] [place] [address] documented in this encounter Visit Diagnoses Not on filedocumented in this encounter Care Teams Settlement Clerk Relationship Specialty Start Date End Date Israel Guardado MD [address] [phone] PCP - General Family Practice 03/19/23 documented as of this encounter
--- OUTSIDE RECORDS SUMMARY | 2025-08-07 13:11 | XMS_ITS | Encounter Summary ---
Author Organization [facility] Address [address] [place] [address] Care Team Providers Care Animated Cartoons Painter Name Role Phone Israel Guardado MD Primary Care Provider [phone] [phone] Encounter Details Date Type Department Care Team (Late st Contact Info) Description 02/17/2022 Lab Requisition [facility] Services [address] [place] [address] Mirian Dale PA-C [address] [place] [address] Social History Tobacco Use Types Packs/Day Years Used Date Smoking Tobacco: Every Day Cigarettes Last attempted to quit: 06/18/2009 Smokeless Tobacco: Never Alcohol Use Standard Drinks/Week Comments No 0 (1 standard drink = 0.6 oz pur e alcohol) Comments Unknown Sex and Gender Information Value Date Recorded Sex Assigned at Not on file 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 No / Unsure 01/30/2022 12:16 PM WAREHOUSE MAN documented as of this encounter Plan of Treatment Not on file documented as of this encounter Procedures Procedure Name Priority Date/Time Associated Diagnosis Comments CBC WITH DIFFERENTIAL Routine 02/17/2022 2:50 AM CDT COMPREHENSIVE METABOLIC PANEL Routine 02/17/2022 2:50 AM CDT documented in this encounter Results * (ABNORMAL) CBC WITH DIFFERENTIAL (02/17/2022 2:50 AM CDT) [facility] WBC 7.0 4.5 - 11.0 K/uL 02/17/2022 7:14 AM CDT [facility] RBC 4.28 4.20 - 5.40 M/uL 02/17/2022 7:14 AM [facility] HEMOGLOBIN 11.9(L) 12.0 - 16.0 g/dL 02/17/2022 7:14 AM [facility] HEMATOCRIT 39.0 36.0 - 46.0 % 02/17/2022 7:14 AM [facility] [email or web address] [facility] MCV 91.1 84.0 - 103.0 fL 02/17/2022 7:14 AM [facility] [email or web address] [facility] MCH 27.8 27.0 - 34.0 pg 02/17/2022 7:14 AM [facility] [email or web address] [facility] MCHC 30.5 30.0 - 35.0 g/dL 02/17/2022 7:14 AM [facility] [email or web address] [facility] RDW 15.0(H) 11.0 - 14.5 % 02/17/2022 7:14 AM [facility] RDW-STDEV 49.6 37.0 - 54.0 fL 02/17/2022 7:14 AM [facility] [email or web address] [facility] PLATELETS 321 140 - 440 K/uL 02/17/2022 7:14 AM [facility] [email or web address] [facility] MPV 9.6 8.9 - 12.8 fL 02/17/2022 7:14 AM [facility] [email or web address] [facility] NEUTROPHILS 50 42 - 75 % 02/17/2022 7:14 AM CDT [facility] [email or web address] [facility] LYMPHOCYTES 35 24 - 44 % 02/17/2022 7:14 AM [facility] [email or web address] [facility] MONOCYTES 13(H) 2 - 10 % 02/17/2022 7:14 AM CDT [facility] EOSINOPHILS 1 0 - 7 % 02/17/2022 7:14 AM CDT [facility] BASOPHILS 0 0 - 1 % 02/17/2022 7:14 AM CDT [facility] IMMATURE GRANULOCYTES 0 0 - 2 % 02/17/2022 7:14 AM CDT [facility] NEUTROPHIL ABSOLUTE 3.52 2.00 - 8.00 K/uL 02/17/2022 7:14 AM CDT [facility] LYMPHOCYTE ABSOLUTE 2.48 1.20 - 4.00 K/uL 02/17/2022 7:14 AM CDT [facility] MONOCYTE ABSOLUTE 0.93(H) 0.10 - 0.60 K/uL 02/17/2022 7:14 AM CDT [facility] EOSINOPHIL ABSOLUTE 0.05 0.00 - 0.70 K/uL 02/17/2022 7:14 AM CDT [facility] BASOPHILS ABSOLUTE 0.02 0.00 - 0.20 K/uL 02/17/2022 7:14 AM CDT [facility] IMMATURE GRANULOCYTES ABSOLUTE 0.02 0.00 - 0.10 K/uL 02/17/2022 7:14 AM T [facility] Blood Collection / Unknown 02/17/2022 2:50 AM CDT 02/17/2022 7:10 AM CDT Mirian Dale PA-C HEMATOLOGY ORDERABLES Final Re sult [facility] CLIA # [id number] [address] [address] [place] [address] * (ABNORMAL) COMPREHENSIVE METABOLIC PANEL (02/17/2022 2:50 AM CDT) SODIUM 142 136 - 145 mmol/L 02/17/2022 7:33 AM CDT [facility] POTASSIUM 4.3 3.5 - 5.1 mmol/L 02/17/2022 7:33 AM [facility] CHLORIDE 106 98 - 107 mmol/L 02/17/2022 7:33 AM [facility] CO2 26 22 - 29 mmol/L 02/17/2022 7:33 AM [facility] CALCIUM 8.8 8.6 - 10.0 mg/dL 02/17/2022 7:33 AM [facility] BUN 20 6 - 20 mg/dL 02/17/2022 7:33 AM [facility] CREATININE 0.55 0.51 - 0.95 mg/dL 02/17/2022 7:33 AM [facility] GLUCOSE 75 74 - 99 mg/dL 02/17/2022 7:33 AM [facility] TOTAL PROTEIN 6.4 6.4 - 8.3 g/dL 02/17/2022 7:33 AM [facility] ALBUMIN 3.4(L) 3.5 - 5.2 g/dL 02/17/2022 7:33 AM [facility] BILIRUBIN TOTAL <0.2(L) 0.2 - 1.0 mg/dL 02/17/2022 7:33 AM [facility] ALKALINE PHOSPHATASE 88 35 - 104 U/L 02/17/2022 7:33 AM [facility] AST 9(L) 10 - 35 U/L 02/17/2022 7:33 AM [facility] ALT <5 <=35 U/L 02/17/2022 7:33 AM [facility] GFR >60 >=60 mL/min/1. 73 sq meter 02/17/2022 7:33 AM [facility] Comment: eGFR calculated with 2020 CKD-EPI equation. Vegetarian diet, extremely high or low muscle mass, and may affect results. Cystatin C with Glomerular Filtration Rate is a suitable alternative for these patients. The National Kidney Foundation and the [place] [employer] Nephrology (NKF-ASN) recommends using the [...] ANION GAP 10 9 - 20 mmol/L 02/17/2022 7:33 AM CDT [facility] Blood Collection / Unknown 02/17/2022 2:50 AM CDT 02/17/2022 7:09 AM CDT us Mirian Dale PA-C CHEMISTRY ORDERABLES Final Res ult [facility] [email or web address] [facility] CLIA # [id number] [address] [facility] [place] [address] documented in this encounter Visit Diagnoses Not on filedocumented in this encounter Care Teams Animated Cartoons Painter Relationship Specialty Start Date End Date Israel Guardado MD [address] [phone] PCP - General Family Practice 03/19/23 documented as of this encounter
--- OUTSIDE RECORDS SUMMARY | 2025-08-07 13:11 | XMS_ITS | Encounter Summary ---
Author Organization [facility] Address [address] [place] [address] Care Team Providers Care Motorized Squad Sergeant Name Role Phone Israel Guardado MD Primary Care Provider [phone] Encounter Details Date Type Department Care Team (Late st Contact Info) Description 03/03/2022 Lab Requisition [facility] Laboratory Services [address] [place] [address] [facility], External Provider [address] [place] [address] Social History Tobacco Use Types Packs/Day Years Used Date Smoking Tobacco: Every Day Cigarettes Last attempted to quit: 06/18/2009 Smokeless Tobacco: Never Alcohol Use Standard Drinks/Week Comments No 0 (1 standard drink = 0.6 oz pur e alcohol) Comments Unknown Sex and Gender Information Value Date Recorded Sex Assigned at Not on file 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 Gender Identity Not on file Sexual Orientation Not on file documented as of this encounter Plan of Treatment Not on file documented as of this encounter Procedures Procedure Name Priority Date/Time Associated Diagnosis Comments SEDIMENTATION RATE Routine 03/03/2022 3: 10 AM CDT C-REACTIVE PROTEIN Routine 03/03/2022 3: 10 AM CDT documented in this encounter Results * SEDIMENTATION RATE (03/03/2022 3:10 AM CDT) Pathologist [facility] ESR (SEDIMENTATION RATE) 18 0 - 20 mm/Hr 03/03/2022 8:59 AM CDT [facility] Blood Collection / Unknown 03/03/2022 3:10 AM CDT 03/03/2022 8:17 AM CDT External Provider [facility] HEMATOLOGY ORDERABLES Trudy l Result Performing Organization Address City/[facility]/ZIP Co de Phone Number [facility] CLIA # [id number] [id number] [place] [address] * C-REACTIVE PROTEIN (03/03/2022 3:10 AM CDT) [facility] CRP <3.0 0.0 - 5.0 mg/L 03/03/2022 9:21 AM CDT [facility] Blood Collection / Unknown 03/03/2022 3:10 AM CDT 03/03/2022 8:17 AM CDT External Provider [facility] CHEMISTRY ORDERABLES Final Result Performing Organization Address City/[facility]/ZIP Co de Phone Number [facility] CLIA # [id number] [address] [address] documented in this encounter Visit Diagnoses Not on filedocumented in this encounter Care Teams Motorized Squad Sergeant Relationship Specialty Start Date End Date Israel Guardado MD [address] [id number] PCP - General Family Practice 03/19/23 documented as of this encounter
--- OUTSIDE RECORDS SUMMARY | 2025-08-07 13:11 | XMS_ITS | Encounter Summary ---
Author Organization [facility] Address [address] [place] [address] Care Team Providers Care Ceramic Saw Tender Name Role Phone Israel Guardado MD Primary Care Provider [phone] Encounter Details Date Type Department Care Team (Late st Contact Info) Description 03/04/2022 Lab Requisition [facility] Laboratory Services [address] [place] [address] [place] [address] [place] [address] Catarino Harrington, DMITRY [address] [address] Social History Tobacco Use Types Packs/Day Years Used Date Smoking Tobacco: Every Day Cigarettes Last attempted to quit: 06/18/2009 Smokeless Tobacco: Never Alcohol Use Standard Drinks/Week Comments No 0 (1 standard drink = 0.6 oz pur e alcohol) Comments Unknown Sex and Gender Information Value Date Recorded Sex Assigned at Not on file Legal 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 POTASSIUM 3.9 3.5 - 5.1 mmol/L 03/04/2022 5:[address] [facility] CHLORIDE 105 98 - 107 mmol/L 03/04/2022 5:[address] [facility] CO2 24 22 - 29 mmol/L 03/04/2022 5:[address] [facility] CALCIUM 8.7 8.6 - 10.0 mg/dL 03/04/2022 5:[address] [facility] BUN 19 6 - 20 mg/dL 03/04/2022 5:[address] [facility] CREATININE 0.46(L) 0.51 - 0.95 mg/dL 03/04/2022 5:[address] [facility] GLUCOSE 127(H) 74 - 99 mg/dL 03/04/2022 5:[address] [facility] TOTAL PROTEIN 6.2(L) 6.4 - 8.3 g/dL 03/04/2022 5:[address] [facility] ALBUMIN 3.2(L) 3.5 - 5.2 g/dL 03/04/2022 5:[address] [facility] BILIRUBIN TOTAL 0.2 0.2 - 1.0 mg/dL 03/04/2022 5:[address] [facility] ALKALINE PHOSPHATASE 91 35 - 104 U/L 03/04/2022 5:[address] [facility] AST 17 10 - 35 U/L 03/04/2022 5:[address] [facility] ALT 6 <=35 U/L 03/04/2022 5:[address] [facility] GFR >60 >=60 mL/min/1. 73 sq meter 03/04/2022 5:[address] [facility] Comment: eGFR calculated with 2020 CKD-EPI equation. Vegetarian diet, extremely high or low muscle mass, and may affect results. Cystatin C with Glomerular Filtration Rate is a suitable alternative for these patients. The National Kidney Foundation and the [place] [employer] Neph[employer] (NKF-ASN) recommends using the 202 CKD Epidemiology Collaboration (CKD-EPI) equation to calculate [...] ANION GAP 11 9 - 20 mmol/L 03/04/2022 5:51 AM CDT [facility] Blood Collection / Unknown 03/04/2022 4:15 AM CDT 03/04/2022 5:31 AM CDT us Catarino Harrington FRETTED INSTRUMENT INSPECTOR CHEMISTRY ORDERABLES Fin al Result [facility] [employer] [facility] CLIA # [id number] [address] [facility] [place] [address] documented in this encounter Visit Diagnoses Not on filedocumented in this encounter Care Teams Ceramic Saw Tender Relationship Specialty Start Date End Date Israel Guardado MD [address] [facility] [address] [place] [phone] PCP - General Family Practice 03/19/23 documented as of this encounter
[2025-08-07 13:27] LABS: Hematocrit 29.3 % (36-47); Hemoglobin 9.30 g/dL (11.27-16.99); Mean Corpuscular HGB Conc 31.7 g/dL (30-55); Mean Corpuscular Hemoglobin 27.6 pg (27-33); Mean Corpuscular Volume 86.9 fl (85-98); Nucleated Red Blood Cells % 0 %; Platelet Count 272 10^3/cmm (157-399); Red Blood Count 3.37 10^6/uL (3.85-5.65); White Blood Count 11.06 10^3/uL (3.29-11.43)
[2025-08-07 13:32] VITALS: BP 99/57; O2SAT 99
[2025-08-07 13:46] LABS: Alanine Aminotransferase 9 U/L (0-33); Albumin Level 3.2 g/dL (3.5-5.2); Alkaline Phosphatase 75 U/L (35-105); Blood Urea Nitrogen 9 mg/dL (6-20); Calcium 8.2 mg/dL (8.5-10.5); Carbon Dioxide 23 mmol/L (22-29); Chloride 104 mmol/L (98-107); Creatinine Clr Calc Pharmacy 76.5317; Globulin 2.7 g/dL (1.3-4.6); Glucose 259 mg/dL (65-115); Osmolality Calculated 294 mOsm/kg (285-295); Sodium 138 mmol/L (136-145); Total Protein 5.9 g/dL (6.6-8.7)
[2025-08-07] MEDS: iohexol 350 mg/mL 500 mL Btl (per mL) IV (13:46)
[2025-08-07 13:48] LABS: Acetaminophen < 5.0 ug/mL (10-30); Alcohol Level < 10 mg/dL (0-10); Salicylate < 0.3 mg/dL (3-10)
[2025-08-07 13:49] LABS: Anion Gap 14.6 (5-19); Aspartate Amino Transferase 14 U/L (0-32); Potassium 3.6 mmol/L (3.5-5.1)
[2025-08-07 13:50] LABS: Lactic Sepsis W/Reflex 5.5 mmol/L (0.5-2.2)
[2025-08-07 14:07] VITALS: BP 124/97; PULSE 85; RESP 18; O2SAT 92
[2025-08-07 14:09] LABS: ABG PCO2 36.6 mmHg (35-45); ABG PH Result 7.38 (7.35-7.45); Alveolar-Arterial Oxygen Gradi 0.5 mmHg (5-10); Arterial Blood Gas Hematocrit 24.7 % (37-47); Blood Gas Allen Test Pos; Blood Gas Sample Type Arterial; Carboxyhemoglobin 1.9 %THgb (0.4-20.1); Glucose Level-ABG 109.0 mg/dL (70-115); HCO3 ABG 21.6 mmol/L (22-26); Ionized Calcium Level - ABG 1.1 mmol/L (1.1-1.4); Methemoglobin 0.3 % (0.4-1.5); Oxygen Saturation ABG 99.0; PO2 ABG 101.0 mmHg (80.0-100.0); Potassium Level - ABG 3.1 mmol/L (3.5-5.0); Sodium Level - ABG 138.0 mmol/L (131-143)
[2025-08-07 14:10] LABS: Blood Gas Operator Identificat MONRO; Blood Gas Sample Site Radial, left; PO2 FiO2 Ratio Arterial Blood 480
[2025-08-07 14:18] LABS: Ketone (Acetest) Serum Negative (Negative)
[2025-08-07] MEDS: tranexamic acid 1,000 MG/100 ML PREMIX 600 MG IV (14:28)
[2025-08-07 14:36] LABS: INR 1.04 (0.8-1.2); Prothrombin Time 14.30 SECONDS (12.1-14.9)
[2025-08-07 14:37] LABS: Partial Thromboplastin Time 26.9 SECONDS (23.9-36.7)
--- NOTE | 2025-08-07 14:38 | DCPLANNER ---
Addendum entered by Nan Walters 08/07/25 16:31: they brought me a copy and i got it scanned in Original Note: was not able to scan in transfer from. [facility] 1 transferred emergently to [facility]. Dr. Delgado accepting patient from Khadijah ALDANA and Kary Mcgraw MD. trauma surgeon .
[2025-08-07 14:39] VITALS: BP 90/60; PULSE 85; RESP 18; O2SAT 100
--- NOTE | 2025-08-07 14:41 | PC.NURSE ---
EMERGENT BLOOD ORDERED AND GIVEN, BLOOD WAS STARTED AT 1430, RANI AND ROLDAN FUENTES VERIFIED.
--- NOTE | 2025-08-07 14:43 | PC.NURSE ---
BLOOD WAS STARTED WHILE AIR EVAC WAS IN ROOM, AIR EVAC TOOK PT SOON BLOOD WAS STARTED.
[2025-08-07 15:13] LABS: Reflex Lactate Order REFLEX LACTIC ORDERD
== END 2025-08-07 14:38 | disposition short-term general hospital (02) ==
PROVIDERS: Emergency Provider Physician Assistant; PCP Nurse Practitioner Family
DX: S36.032A Major laceration of spleen, initial encounter (principal); Z72.0 Tobacco use; W01.0XXA Fall on same level from slipping, tripping and stumbling without subsequent striking against object, initial encounter; I95.9 Hypotension, unspecified; K66.1 Hemoperitoneum
CPT/HCPCS: 36415; 36600; 70450; 71045; 71260; 72125; 74177; 80051; 80053; 80307; 82009; 82330; 82805; 83605; 85025; 85610; 85730; 86850; 86900; 86920; 87040; 99285; 99291; J7030; J9999; P9016